=== PATIENT | female | born 1965 | race American Indian/Alaskan Native ===

== ENCOUNTER 2018-08-21 15:36 | Inpatient (IN) | payer OTHER ==
[2018-08-21] MEDS ORDERED: NACL 0.9% 1000 ML IV ONE (16:12)
[2018-08-21 16:35] LABS: Basophils # (Auto) 0.1 K/mm3 (0.0-0.1); Eosinophils % (Auto) 0.1 % (0.0-4.3); Monocytes # (Auto) 0.5 K/mm3 (0.0-0.8)
--- NOTE | 2018-08-21 16:47 | XRay Report ---
CHEST 1 VIEW 4:23 PM INDICATION / CLINICAL INFORMATION: Tachycardia and sepsis for one day. COMPARISON: None available. FINDINGS: SUPPORT DEVICES: None. HEART / MEDIASTINUM: The heart size is borderline with a left ventricular configuration. Pulmonary va sculature is normal. There is mild aortic tortuosity without aneurysm. LUNGS / PLEURA: No significant pulmonary or pleural abnormality. No pneumothorax. ADDITIONAL FINDINGS: There is a fracture of the mid right clavicle which is of uncertain age. IMPRESSION: 1. No acute pulmonary disease. 2. Fracture of the right mid clavicle is of uncertain age. Signer Name: Kenyon Oconnor MD Signed: 08/21/2018 4:43 PM Workstation Name: [id number]
[2018-08-21 16:59] LABS: Bacteria,Urine 1+ /HPF (Negative); Bilirubin,Urine NEG (Negative); Blood,Urine SM (Negative); Color,Urine Yellow (Yellow); Mucus,Urine FEW /HPF; Urobilinogen,Urine < 2.0 mg/dL (<2.0)
[2018-08-21] MEDS ORDERED: LEVAQUIN 750MG/150ML 750 MG/150 ML BAG IV SCH (17:00)
[2018-08-21 17:03] LABS: WBC,Urine > 182.0 /HPF (0.0-6.0)
[2018-08-21 17:04] LABS: Basophils % (Auto) 0.6 % (0.0-1.8); Hematocrit 30.9 % (30.3-42.9); Hemoglobin 10.4 gm/dl (10.1-14.3); Mean Corpuscular HGB Conc 34 % (30-34); Mean Corpuscular Volume 85 fl (79-97); Monocytes % (Auto) 3.4 % (0.0-7.3); Platelet Count 171 K/mm3 (140-440); Red Blood Count 3.62 M/mm3 (3.65-5.03); Red Cell Distribution Width 14.6 % (13.2-15.2)
[2018-08-21 17:15] LABS: Alanine Aminotransferase 72 units/L (7-56); Albumin 3.4 g/dL (3.9-5); BUN/Creatinine Ratio 13; Blood Urea Nitrogen 20 mg/dL (7-17); Calcium 9.4 mg/dL (8.4-10.2); Hemolysis Index 0
--- NOTE | 2018-08-21 18:23 | Emergency Department Report ---
ED General Adult HPI - General Chief complaint: Hyperglycemia Stated complaint: HYPERGLYCEMIA Time Seen by Provider: 08/21/18 16:12 Source: patient, EMS Mode of arrival: Stretcher Limitations: No Limitations - History of Present Illness Initial comments: Patient is a 53-year-old female past medical history of diabetes who presents with fever and tachycardia and feeling dizzy. Patient states that she checked her blood sugar and it was elevated. She is also has had a temporal 401.5. Patient takes metformin she's been having fever nothing makes it better and nothing makes it worse. Severity scale (0 -10): 0 - Related Data Home Medications Medication Instructions Recorded Confirmed Last Taken Aspirin [Aspirin BABY CHEW TAB] 81 mg PO QDAY 02/15/14 02/15/14 Unknown Pravastatin Sodium [Pravastatin] 20 mg PO DAILY 02/15/14 02/15/14 Unknown Previous Rx's Medication Instructions Recorded Last Taken Type metFORMIN [Glucophage] 850 mg PO BID #60 tablet 02/17/14 Unknown Rx Losartan [Cozaar] 50 mg PO QDAY #30 tablet 02/20/14 Unknown Rx Metoprolol [Lopressor TAB] 50 mg PO BID #60 tablet 02/20/14 Unknown Rx Allergies Allergy/AdvReac Type Severity Reaction Status Date / Time No Known Allergies Allergy Verified 02/12/14 18:07 ED Review of Systems ROS: Stated complaint: HYPERGLYCEMIA Other details as noted in HPI Constitutional: chills, fever Eyes: denies: eye pain, eye discharge, vision change ENT: denies: ear pain, throat pain Respiratory: denies: cough, shortness of breath, wheezing Cardiovascular: denies: chest pain, palpitations Endocrine: no symptoms reported Gastrointestinal: denies: abdominal pain, nausea, diarrhea Genitourinary: denies: urgency, dysuria, discharge Musculoskeletal: denies: back pain, joint swelling, arthralgia Skin: denies: rash, lesions Neurological: denies: headache, weakness, paresthesias Psychiatric: denies: anxiety, depression Hematological/Lymphatic: denies: easy bleeding, easy bruising ED Past Medical Hx - Past Medical History Hx Hypertension: Yes Hx Heart Attack/AMI: No Hx Congestive Heart Failure: No Hx Diabetes: Yes Hx Asthma: No Hx COPD: No Additional medical history: High cholesterol - Social History Smoking Status: Never Smoker Substance Use Type: None - Medications Home Medications: Home Medications Medication Instructions Recorded Confirmed Last Taken Type Aspirin [Aspirin BABY CHEW TAB] 81 mg PO QDAY 02/15/14 02/15/14 Unknown History Pravastatin Sodium [Pravastatin] 20 mg PO DAILY 02/15/14 02/15/14 Unknown History metFORMIN [Glucophage] 850 mg PO BID #60 tablet 02/17/14 Unknown Rx Losartan [Cozaar] 50 mg PO QDAY #30 tablet 02/20/14 Unknown Rx Metoprolol [Lopressor TAB] 50 mg PO BID #60 tablet 02/20/14 Unknown Rx ED Physical Exam - General Limitations: No Limitations General appearance: alert, in no apparent distress - Head Head exam: Present: atraumatic, normocephalic - Eye Eye exam: Present: normal appearance - ENT ENT exam: Present: mucous membranes moist - Neck Neck exam: Present: normal inspection - Respiratory Respiratory exam: Present: normal lung sounds bilaterally. Absent: respiratory distress - Cardiovascular Cardiovascular Exam: Present: normal rhythm, tachycardia. Absent: systolic murmur, diastolic murmur, rubs, gallop - GI/Abdominal GI/Abdominal exam: Present: soft, normal bowel sounds - Extremities Exam Extremities exam: Present: normal inspection - Back Exam Back exam: Present: normal inspection - Neurological Exam Neurological exam: Present: alert, oriented X3 - Psychiatric Psychiatric exam: Present: normal affect, normal mood - Skin Skin exam: Present: warm, dry, intact, normal color. Absent: rash ED Course Vital Signs 08/21/18 08/21/18 08/21/18 15:55 16:00 17:18 Temperature 101.5 F H 101.5 F H Pulse Rate 131 H 132 H Respiratory 20 16 20 Rate Blood Pressure 175/97 Blood Pressure 163/106 [Left] O2 Sat by Pulse 98 100 Oximetry ED Medical Decision Making - Lab Data Result diagrams: 08/21/18 16:24 08/21/18 15:50 Lab Results 08/21/18 08/21/18 08/21/18 Range/Units 15:50 15:50 15:50 WBC (4.5-11.0) K/mm3 RBC (3.65-5.03) M/mm3 Hgb (10.1-14.3) gm/dl Hct (30.3-42.9) % MCV (79-97) fl MCH (28-32) pg MCHC (30-34) % RDW (13.2-15.2) % Plt Count (140-440) K/mm3 Lymph % (Auto) (13.4-35.0) % [place] % (Auto) (0.0-7.3) % Eos % (Auto) (0.0-4.3) % Baso % (Auto) (0.0-1.8) % Lymph # (1.2-5.4) K/mm3 [place] # (0.0-0.8) K/mm3 Eos # (0.0-0.4) K/mm3 Baso # (0.0-0.1) K/mm3 Seg Neutrophils % (40.0-70.0) % Seg Neutrophils # (1.8-7.7) K/mm3 APTT 43.4 H (24.2-36.6) Sec. Sodium 130 L (137-145) mmol/L Potassium 4.2 (3.6-5.0) mmol/L Chloride 91.0 L (98-107) mmol/L Carbon Dioxide 22 (22-30) mmol/L Anion Gap 21 mmol/L BUN 20 H (7-17) mg/dL Creatinine 1.6 H (0.7-1.2) mg/dL Estimated GFR 41 ml/min BUN/Creatinine Ratio 13 % Glucose 464 H (65-100) mg/dL POC Glucose (70-105) Lactic Acid (0.7-2.0) mmol/L Calcium 9.4 (8.4-10.2) mg/dL Total Bilirubin 0.60 (0.1-1.2) mg/dL AST 64 H (5-40) units/L ALT 72 H (7-56) units/L Alkaline Phosphatase 389 H (35-129) units/L Troponin T < 0.010 (0.00-0.029) ng/mL Total Protein 8.7 H (6.3-8.2) g/dL Albumin 3.4 L (3.9-5) g/dL Albumin/Globulin Ratio 0.6 % Urine Color Yellow (Yellow) Urine Turbidity Slightly-cloudy (Clear) Urine pH 6.0 (5.0-7.0) Ur Specific [place] 1.009 (1.003-1.030) Urine Protein 100 mg/dl (Negative) mg/dL Urine Glucose (UA) >=500 (Negative) mg/dL Urine Ketones Neg (Negative) mg/dL Urine Blood Sm (Negative) Urine Nitrite Neg (Negative) Urine Bilirubin Neg (Negative) Urine Urobilinogen < 2.0 (<2.0) mg/dL Ur Leukocyte Esterase Lg (Negative) Urine WBC (Auto) > 182.0 H (0.0-6.0) /HPF Urine RBC (Auto) 3.0 (0.0-6.0) /HPF U Epithel Cells (Auto) 2.0 (0-13.0) /HPF Urine Bacteria (Auto) 1+ (Negative) /HPF Urine Mucus Few /HPF Blood Type Antibody Screen 08/21/18 08/21/18 08/21/18 Range/Units 15:50 15:52 16:20 WBC (4.5-11.0) K/mm3 RBC (3.65-5.03) M/mm3 Hgb (10.1-14.3) gm/dl Hct (30.3-42.9) % MCV (79-97) fl MCH (28-32) pg MCHC (30-34) % RDW (13.2-15.2) % Plt Count (140-440) K/mm3 Lymph % (Auto) (13.4-35.0) % [place] % (Auto) (0.0-7.3) % Eos % (Auto) (0.0-4.3) % Baso % (Auto) (0.0-1.8) % Lymph # (1.2-5.4) K/mm3 [place] # (0.0-0.8) K/mm3 Eos # (0.0-0.4) K/mm3 Baso # (0.0-0.1) K/mm3 Seg Neutrophils % (40.0-70.0) % Seg Neutrophils # (1.8-7.7) K/mm3 APTT (24.2-36.6) Sec. Sodium (137-145) mmol/L Potassium (3.6-5.0) mmol/L Chloride (98-107) mmol/L Carbon Dioxide (22-30) mmol/L Anion Gap mmol/L BUN (7-17) mg/dL Creatinine (0.7-1.2) mg/dL Estimated GFR ml/min BUN/Creatinine Ratio % Glucose (65-100) mg/dL POC Glucose 401 H (70-105) Lactic Acid 2.30 H* (0.7-2.0) mmol/L Calcium (8.4-10.2) mg/dL Total Bilirubin (0.1-1.2) mg/dL AST (5-40) units/L ALT (7-56) units/L Alkaline Phosphatase (35-129) units/L Troponin T (0.00-0.029) ng/mL Total Protein (6.3-8.2) g/dL Albumin (3.9-5) g/dL Albumin/Globulin Ratio % Urine Color (Yellow) Urine Turbidity (Clear) Urine pH (5.0-7.0) Ur Specific [place] (1.003-1.030) Urine Protein (Negative) mg/dL Urine Glucose (UA) (Negative) mg/dL Urine Ketones (Negative) mg/dL Urine Blood (Negative) Urine Nitrite (Negative) Urine Bilirubin (Negative) Urine Urobilinogen (<2.0) mg/dL Ur Leukocyte Esterase (Negative) Urine WBC (Auto) (0.0-6.0) /HPF Urine RBC (Auto) (0.0-6.0) /HPF U Epithel Cells (Auto) (0-13.0) /HPF Urine Bacteria (Auto) (Negative) /HPF Urine Mucus /HPF Blood Type O POSITIVE Antibody Screen Negative 08/21/18 Range/Units 16:24 WBC 14.3 H (4.5-11.0) K/mm3 RBC 3.62 L (3.65-5.03) M/mm3 Hgb 10.4 (10.1-14.3) gm/dl Hct 30.9 (30.3-42.9) % MCV 85 (79-97) fl MCH 29 (28-32) pg MCHC 34 (30-34) % RDW 14.6 (13.2-15.2) % Plt Count 171 (140-440) K/mm3 Lymph % (Auto) 7.0 L (13.4-35.0) % [place] % (Auto) 3.4 (0.0-7.3) % Eos % (Auto) 0.1 (0.0-4.3) % Baso % (Auto) 0.6 (0.0-1.8) % Lymph # 1.0 L (1.2-5.4) K/mm3 [place] # 0.5 (0.0-0.8) K/mm3 Eos # 0.0 (0.0-0.4) K/mm3 Baso # 0.1 (0.0-0.1) K/mm3 Seg Neutrophils % 88.9 H (40.0-70.0) % Seg Neutrophils # 12.7 H (1.8-7.7) K/mm3 APTT (24.2-36.6) Sec. Sodium (137-145) mmol/L Potassium (3.6-5.0) mmol/L Chloride (98-107) mmol/L Carbon Dioxide (22-30) mmol/L Anion Gap mmol/L BUN (7-17) mg/dL Creatinine (0.7-1.2) mg/dL Estimated GFR ml/min BUN/Creatinine Ratio % Glucose (65-100) mg/dL POC Glucose (70-105) Lactic Acid (0.7-2.0) mmol/L Calcium (8.4-10.2) mg/dL Total Bilirubin (0.1-1.2) mg/dL AST (5-40) units/L ALT (7-56) units/L Alkaline Phosphatase (35-129) units/L Troponin T (0.00-0.029) ng/mL Total Protein (6.3-8.2) g/dL Albumin (3.9-5) g/dL Albumin/Globulin Ratio % Urine Color (Yellow) Urine Turbidity (Clear) Urine pH (5.0-7.0) Ur Specific [place] (1.003-1.030) Urine Protein (Negative) mg/dL Urine Glucose (UA) (Negative) mg/dL Urine Ketones (Negative) mg/dL Urine Blood (Negative) Urine Nitrite (Negative) Urine Bilirubin (Negative) Urine Urobilinogen (<2.0) mg/dL Ur Leukocyte Esterase (Negative) Urine WBC (Auto) (0.0-6.0) /HPF Urine RBC (Auto) (0.0-6.0) /HPF U Epithel Cells (Auto) (0-13.0) /HPF Urine Bacteria (Auto) (Negative) /HPF Urine Mucus /HPF Blood Type Antibody Screen - EKG Data -: EKG Interpreted by Me - EKG Data 07/06/19 18:45 EKG shows sinus tachycardia no ST segment elevation or T-wave inversion impression sinus tachycardia - Radiology Data Radiology results: report reviewed, image reviewed Chest x-ray: Shows no acute cardiopulmonary disease age indeterminate right clavicle fracture - Medical Decision Making Medical diagnosis: Sepsis secondary to urinary tract infection Differential medical diagnosis: Pneumonia, hyperglycemia, diabetic ketoacidosis I'll give patient 30 mL per kilo bolus I will give IV antibiotics urinalysis blood cultures E [place] and I will admit the patient to the hospital service due to potentially life-threatening condition. Discussed follow patient patient agrees to plan. Critical Care Time: Yes Critical care time in (mins) excluding proc time.: 60 Critical care attestation.: If time is entered above; I have spent that time in minutes in the direct care of this critically ill patient, excluding procedure time. Critical care time spent at patient's bedside 30 minutes Critical care time spent reviewing medical record 20 minutes Critical care time spent with strategic sourcing consultant 10 minutes ED Disposition Clinical Impression: Sepsis Qualifiers: Sepsis type: sepsis due to unspecified organism Qualified Code(s): A41.9 - Sepsis, unspecified organism UTI (urinary tract infection) Qualifiers: Urinary tract infection type: acute cystitis Hematuria presence: without hematuria Qualified Code(s): N30.00 - Acute cystitis without hematuria Disposition: OP ADMIT IP TO THIS HOSP Is pt being admited?: Yes Does the pt Need Aspirin: No Condition: Stable Referrals: PRIMARY CARE, [Primary Care Provider] - 3-5 Days
[2018-08-21] MEDS ORDERED: TORADOL IV ONE (18:27)
[2018-08-21] MEDS ORDERED: TORADOL ONE (19:37)
[2018-08-21] MEDS ORDERED: REGLAN IV PRN (20:13)
[2018-08-21] MEDS ORDERED: PERCOCET 5/325 PO PRN (20:13)
[2018-08-21] MEDS ORDERED: SODIUM CHLORIDE FLUSH SYRINGE 10 ML IV PRN (20:13)
[2018-08-21] MEDS ORDERED: DILAUDID IV PRN (20:13)
--- NOTE | 2018-08-21 20:13 | History and Physical Report ---
History of Present Illness Date of examination: 08/21/18 Date of admission: 08/21/18 18:24 Chief complaint: Fever and palpitations for one day Dizziness for 1 day History of present illness: 53-year-old female with past medical history of diabetes and hypertension pr esents with fever and tachycardia and feeling dizzy. Patient also comes in for feeling weak. Patient had a fever of 101.5 at home. Patient also has dysuria and suprapubic discomfort for the past 2 days. Fever and chills present. Patient's blood sugars were high in the range of 300-400 when she checked at home. No cough or congestion. No syncope. No recent travel. No shortness of breath. Past Medical History Hypertension: Yes Diabetes: Yes High cholesterol surgical history none. Social History Smoking Status: Never Smoker Substance Use Type: None Family history Htn - Medications Home Medications: Home Medications Medication Instructions Recorded Confirmed Last Taken Type Aspirin [Aspirin BABY CHEW TAB] 81 mg PO QDAY 02/15/14 02/15/14 Unknown History Pravastatin Sodium [Pravastatin] 20 mg PO DAILY 02/15/14 02/15/14 Unknown History metFORMIN [Glucophage] 850 mg PO BID #60 tablet 02/17/14 Unknown Rx Losartan [Cozaar] 50 mg PO QDAY #30 tablet 02/20/14 Unknown Rx Metoprolol [Lopressor TAB] 50 mg PO BID #60 tablet 02/20/14 Unknown Rx Review of Systems ROS: Stated complaint: HYPERGLYCEMIA Other details as noted in HPI Constitutional: chills, fever Eyes: denies: eye pain, eye discharge, vision change ENT: denies: ear pain, throat pain Respiratory: denies: cough, shortness of breath, wheezing Cardiovascular: denies: chest pain, palpitations Endocrine: no symptoms reported Gastrointestinal: denies: abdominal pain, nausea, diarrhea Genitourinary: Has urgency and dysuria, no discharge Musculoskeletal: denies: back pain, joint swelling, arthralgia Skin: denies: rash, lesions Neurological: denies: headache, weakness, paresthesias Psychiatric: denies: anxiety, depression Hematological/Lymphatic: denies: easy bleeding, easy bruising 14 point review of systems done and otherwise negative. Medications and Allergies Allergies Allergy/AdvReac Type Severity Reaction Status Date / Time No Known Allergies Allergy Verified 02/12/14 18:07 Home Medications Medication Instructions Recorded Confirmed Last Taken Type Aspirin [Aspirin BABY CHEW TAB] 81 mg PO QDAY 02/15/14 02/15/14 Unknown History Pravastatin Sodium [Pravastatin] 20 mg PO DAILY 02/15/14 02/15/14 Unknown History metFORMIN [Glucophage] 850 mg PO BID #60 tablet 02/17/14 Unknown Rx Losartan [Cozaar] 50 mg PO QDAY #30 tablet 02/20/14 Unknown Rx Metoprolol [Lopressor TAB] 50 mg PO BID #60 tablet 02/20/14 Unknown Rx Active Meds: Active Medications Aspirin (Baby Aspirin) 81 mg PO QDAY MARIA ESTHER Enoxaparin Sodium (Lovenox) 40 mg SUB-Q QDAY MARIA ESTHER Hydralazine HCl (Apresoline) 10 mg IV Q3H PRN PRN Reason: Blood Pressure Levofloxacin/Dextrose (Levaquin 750mg/150ml) 750 mg in 150 mls @ 100 mls/hr IV Q48H MARIA ESTHER; Protocol Losartan Potassium (Cozaar) 100 mg PO QDAY MARIA ESTHER Metoprolol Tartrate (Lopressor) 50 mg PO BID [facility] Miscellaneous Medication (Pravastatin Sodium [Pravastatin]) 20 mg PO DAILY [facility] Exam - Constitutional Vitals: Temp Pulse Resp BP Pulse Ox 100.3 F H 119 H 25 H 176/94 96 08/21/18 19:21 08/21/18 19:21 08/21/18 19:50 08/21/18 19:50 08/21/18 19:50 General appearance: Present: no acute distress, mild distress, well-nourished - EENT Eyes: Present: PERRL ENT: hearing intact, clear oral mucosa - Neck Neck: Present: supple, normal ROM - Respiratory Respiratory effort: normal Respiratory: bilateral: CTA - Cardiovascular Heart rate: 100 Rhythm: regular Heart Sounds: Present: S1 & S2. Absent: rub, click - Extremities Extremities: no ischemia, pulses symmetrical, No edema Peripheral Pulses: within normal limits - Abdominal General gastrointestinal: Present: soft, non-tender, non-distended, normal bowel sounds Localized gastrointestinal: tender: suprapubic Female genitourinary: Present: normal - Rectal Rectal Exam: deferred - Integumentary Integumentary: Present: clear, warm, dry - Musculoskeletal Musculoskeletal: gait normal, strength equal bilaterally - Psychiatric Psychiatric: appropriate mood/affect, intact judgment & insight - Neurologic Neurologic: CNII-XII intact, moves all extremities - Allied Health Allied health notes reviewed: nursing, case management Results - Labs CBC & Chem 7: 08/21/18 16:24 08/21/18 15:50 Labs: Laboratory Last Values WBC 14.3 K/mm3 (4.5-11.0) H 08/21/18 16:24 RBC 3.62 M/mm3 (3.65-5.03) L 08/21/18 16:24 Hgb 10.4 gm/dl (10.1-14.3) 08/21/18 16:24 Hct 30.9 % (30.3-42.9) 08/21/18 16:24 MCV 85 fl (79-97) 08/21/18 16:24 MCH 29 pg (28-32) 08/21/18 16:24 MCHC 34 % (30-34) 08/21/18 16:24 RDW 14.6 % (13.2-15.2) 08/21/18 16:24 Plt Count 171 K/mm3 (140-440) 08/21/18 16:24 Lymph % (Auto) 7.0 % (13.4-35.0) L 08/21/18 16:24 [place] % (Auto) 3.4 % (0.0-7.3) 08/21/18 16:24 Eos % (Auto) 0.1 % (0.0-4.3) 08/21/18 16:24 Baso % (Auto) 0.6 % (0.0-1.8) 08/21/18 16:24 Lymph # 1.0 K/mm3 (1.2-5.4) L 08/21/18 16:24 [place] # 0.5 K/mm3 (0.0-0.8) 08/21/18 16:24 Eos # 0.0 K/mm3 (0.0-0.4) 08/21/18 16:24 Baso # 0.1 K/mm3 (0.0-0.1) 08/21/18 16:24 Seg Neutrophils % 88.9 % (40.0-70.0) H 08/21/18 16:24 Seg Neutrophils # 12.7 K/mm3 (1.8-7.7) H 08/21/18 16:24 APTT 43.4 Sec. (24.2-36.6) H 08/21/18 15:50 Sodium 130 mmol/L (137-145) L 08/21/18 15:50 Potassium 4.2 mmol/L (3.6-5.0) 08/21/18 15:50 Chloride 91.0 mmol/L (98-107) L 08/21/18 15:50 Carbon Dioxide 22 mmol/L (22-30) 08/21/18 15:50 21 mmol/L 08/21/18 15:50 BUN 20 mg/dL (7-17) H 08/21/18 15:50 1.6 mg/dL (0.7-1.2) H 08/21/18 15:50 Estimated GFR 41 ml/min 08/21/18 15:50 13 % 08/21/18 15:50 Glucose 464 mg/dL (65-100) H 08/21/18 15:50 POC Glucose 387 (70-105) H 08/21/18 18:53 Lactic Acid 2.30 mmol/L (0.7-2.0) H* 08/21/18 15:50 Calcium 9.4 mg/dL (8.4-10.2) 08/21/18 15:50 0.60 mg/dL (0.1-1.2) 08/21/18 15:50 AST 64 units/L (5-40) H 08/21/18 15:50 ALT 72 units/L (7-56) H 08/21/18 15:50 389 units/L (35-129) H 08/21/18 15:50 < 0.010 ng/mL (0.00-0.029) 08/21/18 15:50 8.7 g/dL (6.3-8.2) H 08/21/18 15:50 3.4 g/dL (3.9-5) L 08/21/18 15:50 0.6 % 08/21/18 15:50 Yellow (Yellow) 08/21/18 15:50 Slightly-cloudy (Clear) 08/21/18 15:50 6.0 (5.0-7.0) 08/21/18 15:50 Ur Specific [place] 1.009 (1.003-1.030) 08/21/18 15:50 100 mg/dl mg/dL (Negative) 08/21/18 15:50 >=500 mg/dL (Negative) 08/21/18 15:50 Neg mg/dL (Negative) 08/21/18 15:50 Sm (Negative) 08/21/18 15:50 Neg (Negative) 08/21/18 15:50 Neg (Negative) 08/21/18 15:50 < 2.0 mg/dL (<2.0) 08/21/18 15:50 Ur Leukocyte Esterase Lg (Negative) 08/21/18 15:50 > 182.0 /HPF (0.0-6.0) H 08/21/18 15:50 3.0 /HPF (0.0-6.0) 08/21/18 15:50 U Epithel Cells (Auto) 2.0 /HPF (0-13.0) 08/21/18 15:50 1+ /HPF (Negative) 08/21/18 15:50 Few /HPF 08/21/18 15:50 Blood Type O POSITIVE 08/21/18 16:20 Antibody Screen Negative 08/21/18 16:20 Short CBC 08/21/18 Range/Units 16:24 WBC 14.3 H (4.5-11.0) K/mm3 Hgb 10.4 (10.1-14.3) gm/dl Hct 30.9 (30.3-42.9) % Plt Count 171 (140-440) K/mm3 BMP 08/21/18 15:50 Sodium 130 L Potassium 4.2 Chloride 91.0 L Carbon Dioxide 22 BUN 20 H Creatinine 1.6 H Glucose 464 H Calcium 9.4 Cardiac Enzymes 08/21/18 Range/Units 15:50 Troponin T < 0.010 (0.00-0.029) ng/mL Liver Function 08/21/18 Range/Units 15:50 Total Bilirubin 0.60 (0.1-1.2) mg/dL AST 64 H (5-40) units/L ALT 72 H (7-56) units/L Alkaline Phosphatase 389 H (35-129) units/L Albumin 3.4 L (3.9-5) g/dL Urine 08/21/18 Range/Units 15:50 Urine Color Yellow (Yellow) Urine pH 6.0 (5.0-7.0) Ur Specific [place] 1.009 (1.003-1.030) Urine Protein 100 mg/dl (Negative) mg/dL Urine Glucose (UA) >=500 (Negative) mg/dL - Imaging and Cardiology EKG: report reviewed (sinus tachycardia heart rate of 1 30/m no acute ST-T wave changes) Imaging and Cardiology: Chest x-ray IMPRESSION: 1. No acute pulmonary disease. 2. Fracture of the right mid clavicle is of uncertain age. Assessment and Plan Advance Directives: Yes (full code) VTE prophylaxis?: Chemical Plan of care discussed with patient/family: Yes - Patient Problems (1) SIRS (systemic inflammatory response syndrome) Current Visit: Yes Status: Acute Plan to address problem: Clinical picture consistent with SIRS Lactic acid elevated White count elevated No hypertension IV fluids and IV ceftriaxone for now Check blood cultures and urine cultures (2) Acute kidney injury Current Visit: Yes Status: Acute Plan to address problem: Secondary to vasomotor nephropathy IV normal saline for now Check BMP in a.m. (3) UTI (urinary tract infection) Current Visit: Yes Status: Acute Qualifiers: Urinary tract infection type: acute cystitis Hematuria presence: without hematuria Qualified Code(s): N30.00 - Acute cystitis without hematuria Plan to address problem: IV Rocephin pending urine cultures (4) DVT prophylaxis Current Visit: No Status: Acute Plan to address problem: Lovenox and GI prophylaxis (5) Hyponatremia Current Visit: No Status: Acute Plan to address problem: IV normal saline for now (6) Uncontrolled hypertension Current Visit: No Status: Acute Plan to address problem: Blood pressure medications adjusted Losartan increased to 100 mg daily (7) Type 2 diabetes mellitus Current Visit: Yes Status: Chronic Qualifiers: Diabetes mellitus technician terminal and repeater insulin use: without technician terminal and repeater use Plan to address problem: Uncontrolled Check hemoglobin A1c Patient initiated on Novolin 70/30 20 units twice a day Patient to be discharged on insulin Patient only on metformin till now Will hold the metformin because of elevated creatinine Insulin coverage before meals and at bedtime with moderate dose sliding scale (8) Hyperlipidemia Current Visit: Yes Status: Chronic Qualifiers: Hyperlipidemia type: mixed hyperlipidemia Qualified Code(s): E78.2 - Mixed hyperlipidemia Plan to address problem: Continue statins (9) DVT prophylaxis Current Visit: Yes Status: Acute Plan to address problem: On Lovenox and GI prophylaxis
[2018-08-21] MEDS: COZAAR PO SCH (21:47)
[2018-08-21] MEDS: NACL 0.9% 1000 ML 1,000 ML IV SCH (21:47)
[2018-08-21] MEDS: BABY ASPIRIN PO SCH (21:48)
[2018-08-21] MEDS: LOPRESSOR PO SCH (21:48)
[2018-08-21] MEDS: PEPCID IV SCH (21:48)
[2018-08-21] MEDS: PRAVACHOL PO SCH (21:48)
[2018-08-21] MEDS: HumaLOG SUB-Q SCH (21:49)
[2018-08-21] MEDS: SODIUM CHLORIDE FLUSH SYRINGE 10 ML IV SCH (21:50)
[2018-08-22] MEDS: ROCEPHIN/NS 2 GM/100 ML 2 GM/100 ML BAG IV SCH ×2 (01:08→10:21)
[2018-08-22] MEDS: LOVENOX SUB-Q SCH ×2 (01:09→10:24)
[2018-08-22] MEDS: APRESOLINE IV PRN ×3 (05:16→17:47)
[2018-08-22] MEDS ORDERED: CARDIZEM IV ONE (06:10)
[2018-08-22 06:35] LABS: Hematocrit 32.4 % (30.3-42.9); Hemoglobin 10.6 gm/dl (10.1-14.3); Mean Corpuscular HGB Conc 33 % (30-34); Mean Corpuscular Volume 87 fl (79-97); Platelet Count 183 K/mm3 (140-440); Red Blood Count 3.71 M/mm3 (3.65-5.03); Red Cell Distribution Width 14.9 % (13.2-15.2)
[2018-08-22 06:52] LABS: Albumin 2.6 g/dL (3.9-5); Calcium 8.8 mg/dL (8.4-10.2)
[2018-08-22] MEDS: HumaLOG SUB-Q SCH ×4 (08:33→22:15)
[2018-08-22 08:34] LABS: Band Neutrophils # (Manual) 1.5 K/mm3; Basophils % (Manual) 0 % (0.0-1.8); Eosinophils % (Manual) 0 % (0.0-4.3); Monocytes % (Manual) 16.5 % (0.0-7.3); Total Cells Counted 200
[2018-08-22 08:35] LABS: Anisocytosis 1+
[2018-08-22 08:36] LABS: Hypochromasia 1+; Platelet Estimate Consistent w Auto
[2018-08-22] MEDS: PRAVACHOL PO SCH (10:23)
[2018-08-22] MEDS: COZAAR PO SCH (10:23)
[2018-08-22] MEDS: LOPRESSOR PO SCH (10:24)
[2018-08-22] MEDS: PEPCID IV SCH ×2 (10:24→22:16)
[2018-08-22] MEDS: BABY ASPIRIN PO SCH (10:24)
[2018-08-22] MEDS: NACL 0.9% 1000 ML 1,000 ML IV SCH (10:26)
[2018-08-22] MEDS: SODIUM CHLORIDE FLUSH SYRINGE 10 ML IV SCH ×2 (10:26→22:16)
--- NOTE | 2018-08-22 13:00 | Progress Note ---
Assessment and Plan Assessment and plan: 53-year-old woman with history of hypertension and diabetes Who presents to the hospital with fever and dysuria and suprapubic pain. Sepsis/UTI/gram-negative bacteremia Continue antibiotics, ID consult Type 2 diabetes with persistent hyperglycemia, A1c 13.5 Optimize insulins, patient is self-pay, she was supposed to be on 70/30 insulin but has not been taking it Hypertension with hypertensive urgency Optimize blood pressure medications Nonadherence to medications Patient has been counseled on preventative health 17 minutes DVT prophylaxis Lovenox History Interval history: Review of systems Constitutional: She admits to having low-grade fever CVS: No chest pain, no orthopnea, no dyspnea on exertion, no pedal edema GI: Suprapubic pain and dysuria is improved, no diarrhea, no vomiting, no constipation Respiratory: no wheezing, no coughing Hospitalist Physical - Physical exam Narrative exam: General.: Appears well, no distress, nontoxic HEENT: Moist mucous membranes, extraocular muscles intact, no lymphadenopathy Neck: supple Cardiac: S1-S2 heard Lungs: clear to auscultation bilaterally Abdomen: soft , nontender, nondistended, bowel sounds positive Extremities: no edema clubbing or cyanosis Skin: no rash or lesions Neurologic: no gross focal deficits Psych: calm, and cooperative - Constitutional Vitals: Temp Pulse Resp BP Pulse Ox 98.5 F 106 H 28 H 164/90 100 08/22/18 04:58 08/22/18 07:47 08/22/18 04:58 08/22/18 10:24 08/22/18 07:47 General appearance: Present: no acute distress, mild distress, well-nourished Results - Labs CBC & Chem 7: 08/22/18 05:53 08/22/18 05:53 Labs: Laboratory Last Values WBC 26.9 K/mm3 (4.5-11.0) H 08/22/18 05:53 RBC 3.71 M/mm3 (3.65-5.03) 08/22/18 05:53 Hgb 10.6 gm/dl (10.1-14.3) 08/22/18 05:53 Hct 32.4 % (30.3-42.9) 08/22/18 05:53 MCV 87 fl (79-97) 08/22/18 05:53 MCH 28 pg (28-32) 08/22/18 05:53 MCHC 33 % (30-34) 08/22/18 05:53 RDW 14.9 % (13.2-15.2) 08/22/18 05:53 Plt Count 183 K/mm3 (140-440) 08/22/18 05:53 Lymph % (Auto) 7.0 % (13.4-35.0) L 08/21/18 16:24 Kern % (Auto) 3.4 % (0.0-7.3) 08/21/18 16:24 Eos % (Auto) 0.1 % (0.0-4.3) 08/21/18 16:24 Baso % (Auto) 0.6 % (0.0-1.8) 08/21/18 16:24 Lymph # 1.0 K/mm3 (1.2-5.4) L 08/21/18 16:24 Kern # 0.5 K/mm3 (0.0-0.8) 08/21/18 16:24 Eos # 0.0 K/mm3 (0.0-0.4) 08/21/18 16:24 Baso # 0.1 K/mm3 (0.0-0.1) 08/21/18 16:24 Add Manual Diff Complete 08/22/18 05:53 Total Counted 200 08/22/18 05:53 Seg Neutrophils % 88.9 % (40.0-70.0) H 08/21/18 16:24 Seg Neuts % (Manual) 60.0 % (40.0-70.0) 08/22/18 05:53 5.5 % 08/22/18 05:53 16.0 % (13.4-35.0) 08/22/18 05:53 Reactive Lymphs % (Man) 0 % 08/22/18 05:53 16.5 % (0.0-7.3) H 08/22/18 05:53 0 % (0.0-4.3) 08/22/18 05:53 0 % (0.0-1.8) 08/22/18 05:53 2.0 % 08/22/18 05:53 0 % 08/22/18 05:53 0 % 08/22/18 05:53 0 % 08/22/18 05:53 Nucleated RBC % Not Reportable 08/22/18 05:53 Seg Neutrophils # 12.7 K/mm3 (1.8-7.7) H 08/21/18 16:24 Seg Neutrophils # Man 16.1 K/mm3 (1.8-7.7) H 08/22/18 05:53 Band Neutrophils # 1.5 K/mm3 08/22/18 05:53 4.3 K/mm3 (1.2-5.4) 08/22/18 05:53 Abs React Lymphs (Man) 0.0 K/mm3 08/22/18 05:53 4.4 K/mm3 (0.0-0.8) H 08/22/18 05:53 0.0 K/mm3 (0.0-0.4) 08/22/18 05:53 0.0 K/mm3 (0.0-0.1) 08/22/18 05:53 0.5 K/mm3 08/22/18 05:53 0.0 K/mm3 08/22/18 05:53 0.0 K/mm3 08/22/18 05:53 Blast Cells # 0.0 K/mm3 08/22/18 05:53 WBC Morphology Not Reportable 08/22/18 05:53 Hypersegmented Neuts Not Reportable 08/22/18 05:53 Hyposegmented Neuts Not Reportable 08/22/18 05:53 Hypogranular Neuts Not Reportable 08/22/18 05:53 Not Reportable 08/22/18 05:53 Not Reportable 08/22/18 05:53 Not Reportable 08/22/18 05:53 Not Reportable 08/22/18 05:53 Not Reportable 08/22/18 05:53 Not Reportable 08/22/18 05:53 Consistent w auto 08/22/18 05:53 Not Reportable 08/22/18 05:53 Plt Clumps, EDTA Not Reportable 08/22/18 05:53 Not Reportable 08/22/18 05:53 Not Reportable 08/22/18 05:53 Not Reportable 08/22/18 05:53 Plt Morphology Comment Not Reportable 08/22/18 05:53 RBC Morphology Not Reportable 08/22/18 05:53 Dimorphic RBCs Not Reportable 08/22/18 05:53 Not Reportable 08/22/18 05:53 1+ 08/22/18 05:53 Not Reportable 08/22/18 05:53 1+ 08/22/18 05:53 Not Reportable 08/22/18 05:53 Not Reportable 08/22/18 05:53 Not Reportable 08/22/18 05:53 Not Reportable 08/22/18 05:53 Not Reportable 08/22/18 05:53 Not Reportable 08/22/18 05:53 Not Reportable 08/22/18 05:53 Not Reportable 08/22/18 05:53 Not Reportable 08/22/18 05:53 Not Reportable 08/22/18 05:53 Not Reportable 08/22/18 05:53 Not Reportable 08/22/18 05:53 Not Reportable 08/22/18 05:53 Not Reportable 08/22/18 05:53 Not Reportable 08/22/18 05:53 Acanthocytes (Spur) Not Reportable 08/22/18 05:53 Rouleaux Not Reportable 08/22/18 05:53 Not Reportable 08/22/18 05:53 Not Reportable 08/22/18 05:53 Not Reportable 08/22/18 05:53 Not Reportable 08/22/18 05:53 Hem Pathologist Commnt No 08/22/18 05:53 APTT 43.4 Sec. (24.2-36.6) H 08/21/18 15:50 Sodium 136 mmol/L (137-145) L 08/22/18 05:53 Potassium 3.9 mmol/L (3.6-5.0) 08/22/18 05:53 Chloride 99.4 mmol/L (98-107) 08/22/18 05:53 Carbon Dioxide 19 mmol/L (22-30) L 08/22/18 05:53 22 mmol/L 08/22/18 05:53 BUN 18 mg/dL (7-17) H 08/22/18 05:53 1.6 mg/dL (0.7-1.2) H 08/22/18 05:53 Estimated GFR 41 ml/min 08/22/18 05:53 11 % 08/22/18 05:53 Glucose 326 mg/dL (65-100) H 08/22/18 05:53 POC Glucose 217 (70-105) H 08/22/18 11:26 13.0 % (4-6) H 08/21/18 20:26 Lactic Acid 1.80 mmol/L (0.7-2.0) 08/21/18 20:26 Calcium 8.8 mg/dL (8.4-10.2) 08/22/18 05:53 0.40 mg/dL (0.1-1.2) 08/22/18 05:53 AST 48 units/L (5-40) H 08/22/18 05:53 ALT 58 units/L (7-56) H 08/22/18 05:53 354 units/L (35-129) H 08/22/18 05:53 < 0.010 ng/mL (0.00-0.029) 08/21/18 15:50 8.0 g/dL (6.3-8.2) 08/22/18 05:53 2.6 g/dL (3.9-5) L 08/22/18 05:53 0.5 % 08/22/18 05:53 Yellow (Yellow) 08/21/18 15:50 Slightly-cloudy (Clear) 08/21/18 15:50 6.0 (5.0-7.0) 08/21/18 15:50 Ur Specific Mcgee 1.009 (1.003-1.030) 08/21/18 15:50 100 mg/dl mg/dL (Negative) 08/21/18 15:50 >=500 mg/dL (Negative) 08/21/18 15:50 Neg mg/dL (Negative) 08/21/18 15:50 Sm (Negative) 08/21/18 15:50 Neg (Negative) 08/21/18 15:50 Neg (Negative) 08/21/18 15:50 < 2.0 mg/dL (<2.0) 08/21/18 15:50 Ur Leukocyte Esterase Lg (Negative) 08/21/18 15:50 > 182.0 /HPF (0.0-6.0) H 08/21/18 15:50 3.0 /HPF (0.0-6.0) 08/21/18 15:50 U Epithel Cells (Auto) 2.0 /HPF (0-13.0) 08/21/18 15:50 1+ /HPF (Negative) 08/21/18 15:50 Few /HPF 08/21/18 15:50 Blood Type O POSITIVE 08/21/18 16:20 Antibody Screen Negative 08/21/18 16:20 Active Medications - Current Medications Current Medications: Generic Name Dose Route Start Last Admin Trade Name Freq PRN Reason Stop Dose Admin Acetaminophen 650 mg 08/21/18 20:13 Tylenol PO Q4H PRN Pain MILD(1-3)/Fever >100.5/CINTRON Aspirin 81 mg 08/21/18 20:00 08/22/18 10:24 Baby Aspirin PO 81 mg QDAY MARIA ESTHER Administration Enoxaparin Sodium 40 mg 08/21/18 19:00 08/22/18 10:24 Lovenox SUB-Q 40 mg QDAY MARIA ESTHER Administration Famotidine 20 mg 08/21/18 22:00 08/22/18 10:24 Pepcid IV 20 mg BID MARIA ESTHER Administration Hydralazine HCl 10 mg 08/21/18 19:57 08/22/18 08:30 Apresoline IV 10 mg Q3H PRN Administration Blood Pressure Hydromorphone HCl 0.5 mg 08/21/18 20:13 Dilaudid IV Q3H PRN Pain , Severe (7-10) Sodium Chloride 1,000 mls @ 100 mls/hr 08/21/18 21:00 08/22/18 10:26 Nacl 0.9% 1000 Ml IV 100 mls/hr DIRECT MARIA ESTHER Administration Ceftriaxone Sodium 2 gm in 100 mls @ 200 mls/hr 08/21/18 21:00 08/22/18 10:21 Rocephin/Ns 2 Gm/100 Ml IV 200 mls/hr Q24HR MARIA ESTHER Administration Protocol Insulin Human Isoph/Insulin Regular 25 unit 08/22/18 17:00 Humulin 70/30 SUB-Q BIDDIAB MARIA ESTHER Insulin Human Lispro 0 unit 08/21/18 22:00 08/22/18 08:33 Humalog SUB-Q 6 unit ACHS MARIA ESTHER Administration Protocol Losartan Potassium 100 mg 08/21/18 20:00 08/22/18 10:23 Cozaar PO 100 mg QDAY MARIA ESTHER Administration Metoclopramide HCl 10 mg 08/21/18 20:13 Reglan IV Q6H PRN Nausea And Vomiting Metoprolol Tartrate 50 mg 08/21/18 22:00 08/22/18 10:24 Lopressor PO 50 mg BID MARIA ESTHER Administration Ondansetron HCl 4 mg 08/21/18 20:13 Zofran IV Q8H PRN Nausea And Vomiting Oxycodone/Acetaminophen 1 tab 08/21/18 20:13 Percocet 5/325 PO Q6H PRN Pain, Moderate (4-6) Pravastatin Sodium 20 mg 08/21/18 22:00 08/22/18 10:23 Pravachol PO 20 mg QDAY MARIA ESTHER Administration Sodium Chloride 10 ml 08/21/18 22:00 08/22/18 10:26 Sodium Chloride Flush Syringe 10 Ml IV 10 ml BID MARIA ESTHER Administration Sodium Chloride 10 ml 08/21/18 20:13 Sodium Chloride Flush Syringe 10 Ml IV PRN PRN LINE FLUSH
--- NOTE | 2018-08-22 13:19 | Consultation ---
History of Present Illness - Reason for Consult Consult date: 08/22/18 Bacteremia Requesting physician: WENDY CHASE - History of Present Illness This patient is a 53-year-old female with a past medical history of diabetes and hypertension that presents to the ED on 08/21/18 with complaints of fever, tachycardia, generalized weakness, dizziness, dysuria and suprapubic discomfort for the past 2 days with accompanying fever and chills. Patient reports subjective fever at home of 101.5. and elevated blood sugars in the range of 300-400. On admission WBC 14.3, Creatinine 1.6, HbA1C 13.0, AST 48, ALT 58, ALP 354, Lactic Acid 1.8, Temperature 101.5, HR 131, BP 175/97. U/A with Pyuria , WBC >182, Large LE. CXR shows no consolidation. Blood cultures are in progress. Review of Systems: General: + fever, no chills, nightsweats, unintentional weight change, or change in appetite Cutaneous: no rash, pruritus Head: no headaches or injury Eyes: no changes in vision, eye pain, double vision Ears: no ear pain, ear discharge, ringing or hearing loss Nose: no nose bleeding, stuffiness Mouth & throat: no bleeding gums, no horseness, no dental problems, or swollen glands Neck: no pain, node enlargement/lumps, tyroid enlargement or tenderness Respiratory: no cough, wheezing, sputum, hemoptysis, pleuritic chest pain Cardiovascular: no chest pain, leg edema, cyanosis, PAREKH, orthopnea Musculoskeletal: no decreased joint motion, bone or joint pain, joint swelling, muscle aches Gastrointestinal: no nausea, vomiting, hematemesis, diarrhea, constipation, melena, bright red blood in stools, fecal incontinence, jaundice Genitourinary/Reproductive: + frequent urination, Suprapubic pain, CVA tenderness Neurogical: no seizures, no headaches, no weakness, no paresthesias, no loss of speech or vision; no memory loss, no vertigo, no tremors, no numbness Psychiatric: stable mood; no excessive anxiety, sadness or moodiness Medications and Allergies Allergies Allergy/AdvReac Type Severity Reaction Status Date / Time No Known Allergies Allergy Verified 02/12/14 18:07 Home Medications Medication Instructions Recorded Confirmed Last Taken Type Aspirin [Aspirin BABY CHEW TAB] 81 mg PO QDAY 02/15/14 02/15/14 Unknown History Pravastatin Sodium [Pravastatin] 20 mg PO DAILY 02/15/14 02/15/14 Unknown History metFORMIN [Glucophage] 850 mg PO BID #60 tablet 02/17/14 Unknown Rx Losartan [Cozaar] 50 mg PO QDAY #30 tablet 02/20/14 Unknown Rx Metoprolol [Lopressor TAB] 50 mg PO BID #60 tablet 02/20/14 Unknown Rx Active Meds: Active Medications Acetaminophen (Tylenol) 650 mg PO Q4H PRN PRN Reason: Pain MILD(1-3)/Fever >100.5/CINTRON Aspirin (Baby Aspirin) 81 mg PO QDAY [facility] Last Admin: 08/22/18 10:24 Dose: 81 mg Documented by: Enoxaparin Sodium (Lovenox) 40 mg SUB-Q QDAY [facility] Last Admin: 08/22/18 10:24 Dose: 40 mg Documented by: Famotidine (Pepcid) 20 mg IV BID [facility] Last Admin: 08/22/18 10:24 Dose: 20 mg Documented by: Hydralazine HCl (Apresoline) 10 mg IV Q3H PRN PRN Reason: Blood Pressure Last Admin: 08/22/18 08:30 Dose: 10 mg Documented by: Hydromorphone HCl (Dilaudid) 0.5 mg IV Q3H PRN PRN Reason: Pain , Severe (7-10) Sodium Chloride (Nacl 0.9% 1000 Ml) 1,000 mls @ 100 mls/hr IV DIRECT MARIA ESTHER Last Admin: 08/22/18 10:26 Dose: 100 mls/hr Documented by: Ceftriaxone Sodium (Rocephin/Ns 2 Gm/100 Ml) 2 gm in 100 mls @ 200 mls/hr IV Q24HR [facility]; Protocol Last Admin: 08/22/18 10:21 Dose: 200 mls/hr Documented by: Insulin Human Isoph/Insulin Regular (Humulin 70/30) 25 unit SUB-Q BIDDIAB [facility] Insulin Human Lispro (Humalog) 0 unit SUB-Q ACHS [facility]; Protocol Last Admin: 08/22/18 12:58 Dose: 3 unit Documented by: Losartan Potassium (Cozaar) 100 mg PO QDAY [facility] Last Admin: 08/22/18 10:23 Dose: 100 mg Documented by: Metoclopramide HCl (Reglan) 10 mg IV Q6H PRN PRN Reason: Nausea And Vomiting Metoprolol Tartrate (Lopressor) 50 mg PO BID [facility] Last Admin: 08/22/18 10:24 Dose: 50 mg Documented by: Ondansetron HCl (Zofran) 4 mg IV Q8H PRN PRN Reason: Nausea And Vomiting Oxycodone/Acetaminophen (Percocet 5/325) 1 tab PO Q6H PRN PRN Reason: Pain, Moderate (4-6) Pravastatin Sodium (Pravachol) 20 mg PO QDAY [facility] Last Admin: 08/22/18 10:23 Dose: 20 mg Documented by: Sodium Chloride (Sodium Chloride Flush Syringe 10 Ml) 10 ml IV BID [facility] Last Admin: 08/22/18 10:26 Dose: 10 ml Documented by: Sodium Chloride (Sodium Chloride Flush Syringe 10 Ml) 10 ml IV PRN PRN PRN Reason: LINE FLUSH Physical Examination - Physical Exam Narrative exam: Constitutional: Alert, cooperative. No acute distress Head, Ears, Nose: Normocephalic, atraumatic. External ears, nose normal Eyes: Conjunctivae/corneas clear. No icterus. No ptosis. Neck: Supple, no meningeal signs Oral: dentition fair. No thrush. Cardiovascular: S1, S2 normal. Respiratory: Good air entry, clear to auscultation bilaterally GI: Soft, non-tender; bowel sounds normal. No peritoneal signs : No suprapubiic pain or CVA tenderness Musculoskeletal: No pedal edema, no cyanosis. Skin: No rash or abscess. Hem/Lymphatic: No palpable cervical or supraclavicular nodes. No lymphangitis Psych: Mood Good.. Affect normal Neurological: Awake, alert, oriented. - Constitutional Vitals: Vital Signs Temp Pulse Resp BP Pulse Ox 98.6 F 62 18 154/101 100 08/22/18 12:30 08/22/18 12:30 08/22/18 12:30 08/22/18 12:30 08/22/18 12:30 Temperature -Last 24 Hours Temperature 98.6 F Temperature 98.5 F Temperature 99.3 F Temperature 99.3 F Temperature 100.3 F Temperature 101.5 F Temperature 101.5 F Results - Labs CBC & Chem 7: 08/22/18 05:53 08/22/18 05:53 Labs: Abnormal lab results 08/21/18 08/21/18 08/21/18 Range/Units 15:50 15:50 15:50 WBC (4.5-11.0) K/mm3 RBC (3.65-5.03) M/mm3 Lymph % (Auto) (13.4-35.0) % Lymph # (1.2-5.4) K/mm3 Seg Neutrophils % (40.0-70.0) % Monocytes % (Manual) (0.0-7.3) % Seg Neutrophils # (1.8-7.7) K/mm3 Seg Neutrophils # Man (1.8-7.7) K/mm3 Monocytes # (Manual) (0.0-0.8) K/mm3 APTT 43.4 H (24.2-36.6) Sec. Sodium 130 L (137-145) mmol/L Chloride 91.0 L (98-107) mmol/L Carbon Dioxide (22-30) mmol/L BUN 20 H (7-17) mg/dL Creatinine 1.6 H (0.7-1.2) mg/dL Glucose 464 H (65-100) mg/dL POC Glucose (70-105) Hemoglobin A1c (4-6) % Lactic Acid (0.7-2.0) mmol/L AST 64 H (5-40) units/L ALT 72 H (7-56) units/L Alkaline Phosphatase 389 H (35-129) units/L Total Protein 8.7 H (6.3-8.2) g/dL Albumin 3.4 L (3.9-5) g/dL Urine WBC (Auto) > 182.0 H (0.0-6.0) /HPF 08/21/18 08/21/18 08/21/18 Range/Units 15:50 15:52 16:24 WBC 14.3 H (4.5-11.0) K/mm3 RBC 3.62 L (3.65-5.03) M/mm3 Lymph % (Auto) 7.0 L (13.4-35.0) % Lymph # 1.0 L (1.2-5.4) K/mm3 Seg Neutrophils % 88.9 H (40.0-70.0) % Monocytes % (Manual) (0.0-7.3) % Seg Neutrophils # 12.7 H (1.8-7.7) K/mm3 Seg Neutrophils # Man (1.8-7.7) K/mm3 Monocytes # (Manual) (0.0-0.8) K/mm3 APTT (24.2-36.6) Sec. Sodium (137-145) mmol/L Chloride (98-107) mmol/L Carbon Dioxide (22-30) mmol/L BUN (7-17) mg/dL Creatinine (0.7-1.2) mg/dL Glucose (65-100) mg/dL POC Glucose 401 H (70-105) Hemoglobin A1c (4-6) % Lactic Acid 2.30 H* (0.7-2.0) mmol/L AST (5-40) units/L ALT (7-56) units/L Alkaline Phosphatase (35-129) units/L Total Protein (6.3-8.2) g/dL Albumin (3.9-5) g/dL Urine WBC (Auto) (0.0-6.0) /HPF 08/21/18 08/21/18 08/21/18 Range/Units 18:53 20:26 21:37 WBC (4.5-11.0) K/mm3 RBC (3.65-5.03) M/mm3 Lymph % (Auto) (13.4-35.0) % Lymph # (1.2-5.4) K/mm3 Seg Neutrophils % (40.0-70.0) % Monocytes % (Manual) (0.0-7.3) % Seg Neutrophils # (1.8-7.7) K/mm3 Seg Neutrophils # Man (1.8-7.7) K/mm3 Monocytes # (Manual) (0.0-0.8) K/mm3 APTT (24.2-36.6) Sec. Sodium (137-145) mmol/L Chloride (98-107) mmol/L Carbon Dioxide (22-30) mmol/L BUN (7-17) mg/dL Creatinine (0.7-1.2) mg/dL Glucose (65-100) mg/dL POC Glucose 387 H 446 H (70-105) Hemoglobin A1c 13.0 H (4-6) % Lactic Acid (0.7-2.0) mmol/L AST (5-40) units/L ALT (7-56) units/L Alkaline Phosphatase (35-129) units/L Total Protein (6.3-8.2) g/dL Albumin (3.9-5) g/dL Urine WBC (Auto) (0.0-6.0) /HPF 08/22/18 08/22/18 08/22/18 Range/Units 05:53 05:53 07:31 WBC 26.9 H (4.5-11.0) K/mm3 RBC (3.65-5.03) M/mm3 Lymph % (Auto) (13.4-35.0) % Lymph # (1.2-5.4) K/mm3 Seg Neutrophils % (40.0-70.0) % Monocytes % (Manual) 16.5 H (0.0-7.3) % Seg Neutrophils # (1.8-7.7) K/mm3 Seg Neutrophils # Man 16.1 H (1.8-7.7) K/mm3 Monocytes # (Manual) 4.4 H (0.0-0.8) K/mm3 APTT (24.2-36.6) Sec. Sodium 136 L (137-145) mmol/L Chloride (98-107) mmol/L Carbon Dioxide 19 L (22-30) mmol/L BUN 18 H (7-17) mg/dL Creatinine 1.6 H (0.7-1.2) mg/dL Glucose 326 H (65-100) mg/dL POC Glucose 305 H (70-105) Hemoglobin A1c (4-6) % Lactic Acid (0.7-2.0) mmol/L AST 48 H (5-40) units/L ALT 58 H (7-56) units/L Alkaline Phosphatase 354 H (35-129) units/L Total Protein (6.3-8.2) g/dL Albumin 2.6 L (3.9-5) g/dL Urine WBC (Auto) (0.0-6.0) /HPF 08/22/18 Range/Units 11:26 WBC (4.5-11.0) K/mm3 RBC (3.65-5.03) M/mm3 Lymph % (Auto) (13.4-35.0) % Lymph # (1.2-5.4) K/mm3 Seg Neutrophils % (40.0-70.0) % Monocytes % (Manual) (0.0-7.3) % Seg Neutrophils # (1.8-7.7) K/mm3 Seg Neutrophils # Man (1.8-7.7) K/mm3 Monocytes # (Manual) (0.0-0.8) K/mm3 APTT (24.2-36.6) Sec. Sodium (137-145) mmol/L Chloride (98-107) mmol/L Carbon Dioxide (22-30) mmol/L BUN (7-17) mg/dL Creatinine (0.7-1.2) mg/dL Glucose (65-100) mg/dL POC Glucose 217 H (70-105) Hemoglobin A1c (4-6) % Lactic Acid (0.7-2.0) mmol/L AST (5-40) units/L ALT (7-56) units/L Alkaline Phosphatase (35-129) units/L Total Protein (6.3-8.2) g/dL Albumin (3.9-5) g/dL Urine WBC (Auto) (0.0-6.0) /HPF - Imaging and Cardiology Chest x-ray: report reviewed (no consolidation) Assessment and Plan Cultures: 08/21/18 Blood in progress 53-year-old female with a past medical history of diabetes and hypertension that presents to the ED on 08/21/18 with complaints of fever, tachycardia, generalized weakness, dizziness, dysuria and suprapubic discomfort for the past 2 days with accompanying fever and chills. Patient reports subjective fever at home of 101.5. and elevated blood sugars in the range of 300-400. Admitted with: 1. Sepsis on admission.; evidenced by leukocytosis, fever and tachycardia. Etiology most likely UTI. U/A consistent with UTI. Urine culture in progress. Blood culture in progress. CXR no consolidation. Currently being treated with ceftriaxone. 2. UTI: U/A with Pyuria , WBC >182, Large LE. Urine culture in progress. Will order Renal US to evaluate for hydronephrosis, pyeloneprosis, mass. 3. Uncontrolled Diabetes Type 2: recommend tight gylcemic control 4, Transaminitis: recommend RUQ ultrasound Recommendations: -follow-up blood cultures -follow-up urine culture -continue Ceftriaxone -Order renal US PAT [facility] M: [id number] O:[phone]
[2018-08-22] MEDS ORDERED: NORVASC PO ONE (19:19)
[2018-08-22] MEDS ORDERED: ZESTRIL PO ONE (19:20)
[2018-08-22] MEDS: COLACE PO SCH (23:33)
[2018-08-23] MEDS: APRESOLINE IV PRN (05:41)
[2018-08-23] MEDS ORDERED: CARDIZEM IV ONE (05:43)
--- NOTE | 2018-08-23 06:36 | Event Note ---
Date: 08/23/18 Received a call stating patient had a blood pressure 222/117 with heart rate 152. Patient was treated with IV hydralazine 10 mg and was responsive currently blood pressure is 130/74 with heart rate 93bpm.
[2018-08-23] MEDS: ROCEPHIN/NS 2 GM/100 ML 2 GM/100 ML BAG IV SCH (09:19)
[2018-08-23] MEDS: HumaLOG SUB-Q SCH ×4 (09:21→22:56)
[2018-08-23] MEDS: PRAVACHOL PO SCH (09:22)
[2018-08-23] MEDS: BABY ASPIRIN PO SCH (09:22)
[2018-08-23] MEDS: LOVENOX SUB-Q SCH (09:22)
[2018-08-23] MEDS: NORVASC PO SCH (09:23)
[2018-08-23] MEDS: PEPCID IV SCH ×2 (09:23→21:11)
[2018-08-23] MEDS: COLACE PO SCH ×2 (09:23→21:11)
[2018-08-23] MEDS: ZESTRIL PO SCH (09:23)
[2018-08-23] MEDS: SODIUM CHLORIDE FLUSH SYRINGE 10 ML IV SCH ×2 (09:24→21:11)
--- NOTE | 2018-08-23 09:48 | Progress Note ---
Assessment and Plan Cultures: 08/21/18 Blood: GNR 08/21/18: Urine: GNR 53-year-old female with a past medical history of diabetes and hypertension that presents to the ED on 08/21/18 with complaints of fever, tachycardia, gene ralized weakness, dizziness, dysuria and suprapubic discomfort for the past 2 days with accompanying fever and chills. Patient reports subjective fever at home of 101.5. and elevated blood sugars in the range of 300-400. Admitted with: 1. Sepsis on admission.; Improved. Leukocytosis trending down. Etiology most likely UTI. U/A consistent with UTI. Urine culture in progress. Blood culture GNR. CXR no consolidation. Currently being treated with ceftriaxone. 2. GNR Bacteremia: Blood cultures grew GNR. Likely source,,UTI.. Will follow-up for ID and sensitivity. Continue Ceftriaxone. 3. UTI: U/A with Pyuria , WBC >182, Large LE. Urine culture grew GNR. Follow- up ID and sensitivity. Will order Renal US to evaluate for hydronephrosis, pyeloneprosis, mass. 4. Uncontrolled Diabetes Type 2: recommend tight gylcemic control 5. Transaminitis: RUQ ultrasound ordered 6. ROD: antibiotics renally dosed Recommendations: -continue Ceftriaxone 2gms IV every 24 hours, D3 -follow-up blood cultures for ID and sensitivity -follow-up urine culture for ID and sensitivity -follow-up renal US -Order RUQ ultrasound PAT [facility] M: [phone] O:[phone] Subjective Date of service: 08/23/18 Interval history: Patient seen and examined. No pain or generalized weakness reported. Objective - Exam Narrative Exam: Constitutional: Alert, cooperative. No acute distress Head, Ears, Nose: Normocephalic, atraumatic. External ears, nose normal Eyes: Conjunctivae/corneas clear. No icterus. No ptosis. Neck: Supple, no meningeal signs Oral: dentition fair. No thrush. Cardiovascular: S1, S2 normal. Respiratory: Good air entry, clear to auscultation bilaterally GI: Soft, non-tender; bowel sounds normal. No peritoneal signs, No RUQ pain. : No suprapubiic pain or CVA tenderness Musculoskeletal: No pedal edema, no cyanosis. Skin: No rash or abscess. Hem/Lymphatic: No palpable cervical or supraclavicular nodes. No lymphangitis Psych: Mood Good.. Affect normal Neurological: Awake, alert, oriented. - Constitutional Vitals: Vital Signs Temp Pulse Resp BP Pulse Ox 100.0 F H 121 H 20 180/100 99 08/23/18 05:22 08/23/18 09:23 08/23/18 06:22 08/23/18 09:23 08/23/18 05:22 Temperature -Last 24 Hours Temperature 100.0 F Temperature 98.8 F Temperature 98.4 F Temperature 98.6 F - Labs CBC & Chem 7: 08/23/18 10:19 08/22/18 05:53 Labs: Abnormal lab results 08/22/18 08/22/18 08/23/18 Range/Units 11:26 21:11 08:15 POC Glucose 217 H 221 H 198 H (70-105)
[2018-08-23 10:48] LABS: Basophils # (Auto) 0.1 K/mm3 (0.0-0.1); Basophils % (Auto) 0.3 % (0.0-1.8); Eosinophils % (Auto) 0.2 % (0.0-4.3); Hematocrit 31.2 % (30.3-42.9); Hemoglobin 10.4 gm/dl (10.1-14.3); Lymphocytes % (Auto) 10.5 % (13.4-35.0); Mean Corpuscular HGB Conc 33 % (30-34); Mean Corpuscular Volume 86 fl (79-97); Monocytes # (Auto) 1.8 K/mm3 (0.0-0.8); Monocytes % (Auto) 9.3 % (0.0-7.3); Platelet Count 220 K/mm3 (140-440); Red Blood Count 3.63 M/mm3 (3.65-5.03); Red Cell Distribution Width 15.5 % (13.2-15.2)
[2018-08-23] MEDS: MIRALAX 3350 PO PRN (13:43)
--- NOTE | 2018-08-23 15:31 | Progress Note ---
Assessment and Plan Assessment and plan: 53-year-old woman with history of hypertension and diabetes Who presents to the hospital with fever and dysuria and suprapubic pain. Sepsis/UTI/gram-negative bacteremia Continue antibiotics, ID consult reviewed Type 2 diabetes with persistent hyperglycemia, A1c 13.5 Optimize insulins, patient is self-pay, she was supposed to be on 70/30 insulin but has not been taking it her family is to bring her insurance card this evening Hypertension with hypertensive urgency Optimize blood pressure medications Nonadherence to medications Patient has been counseled on preventative health 17 minutes DVT prophylaxis Lovenox History Interval history: Review of systems Constitutional: She admits to having low-grade fever CVS: No chest pain, no orthopnea, no dyspnea on exertion, no pedal edema GI: Suprapubic pain and dysuria is improved, no diarrhea, no vomiting, no constipation Respiratory: no wheezing, no coughing Hospitalist Physical - Physical exam Narrative exam: General.: Appears well, no distress, nontoxic HEENT: Moist mucous membranes, extraocular muscles intact, no lymphadenopathy Neck: supple Cardiac: S1-S2 heard Lungs: clear to auscultation bilaterally Abdomen: soft , nontender, nondistended, bowel sounds positive Extremities: no edema clubbing or cyanosis Skin: no rash or lesions Neurologic: no gross focal deficits Psych: calm, and cooperative - Constitutional Vitals: Temp Pulse Resp BP Pulse Ox 98.6 F 119 H 20 152/81 97 08/23/18 12:45 08/23/18 12:45 08/23/18 12:45 08/23/18 12:45 08/23/18 12:45 General appearance: Present: no acute distress, mild distress, well-nourished Results - Labs CBC & Chem 7: 08/23/18 10:19 08/22/18 05:53 Labs: Laboratory Last Values WBC 19.1 K/mm3 (4.5-11.0) H 08/23/18 10:19 RBC 3.63 M/mm3 (3.65-5.03) L 08/23/18 10:19 Hgb 10.4 gm/dl (10.1-14.3) 08/23/18 10:19 Hct 31.2 % (30.3-42.9) 08/23/18 10:19 MCV 86 fl (79-97) 08/23/18 10:19 MCH 29 pg (28-32) 08/23/18 10:19 MCHC 33 % (30-34) 08/23/18 10:19 RDW 15.5 % (13.2-15.2) H 08/23/18 10:19 Plt Count 220 K/mm3 (140-440) 08/23/18 10:19 Lymph % (Auto) 10.5 % (13.4-35.0) L 08/23/18 10:19 [place] % (Auto) 9.3 % (0.0-7.3) H 08/23/18 10:19 Eos % (Auto) 0.2 % (0.0-4.3) 08/23/18 10:19 Baso % (Auto) 0.3 % (0.0-1.8) 08/23/18 10:19 Lymph # 2.0 K/mm3 (1.2-5.4) 08/23/18 10:19 [place] # 1.8 K/mm3 (0.0-0.8) H 08/23/18 10:19 Eos # 0.0 K/mm3 (0.0-0.4) 08/23/18 10:19 Baso # 0.1 K/mm3 (0.0-0.1) 08/23/18 10:19 Add Manual Diff Complete 08/22/18 05:53 Total Counted 200 08/22/18 05:53 Seg Neutrophils % 79.7 % (40.0-70.0) H 08/23/18 10:19 Seg Neuts % (Manual) 60.0 % (40.0-70.0) 08/22/18 05:53 5.5 % 08/22/18 05:53 16.0 % (13.4-35.0) 08/22/18 05:53 Reactive Lymphs % (Man) 0 % 08/22/18 05:53 16.5 % (0.0-7.3) H 08/22/18 05:53 0 % (0.0-4.3) 08/22/18 05:53 0 % (0.0-1.8) 08/22/18 05:53 2.0 % 08/22/18 05:53 0 % 08/22/18 05:53 0 % 08/22/18 05:53 0 % 08/22/18 05:53 Nucleated RBC % Not Reportable 08/22/18 05:53 Seg Neutrophils # 15.2 K/mm3 (1.8-7.7) H 08/23/18 10:19 Seg Neutrophils # Man 16.1 K/mm3 (1.8-7.7) H 08/22/18 05:53 Band Neutrophils # 1.5 K/mm3 08/22/18 05:53 4.3 K/mm3 (1.2-5.4) 08/22/18 05:53 Abs React Lymphs (Man) 0.0 K/mm3 08/22/18 05:53 4.4 K/mm3 (0.0-0.8) H 08/22/18 05:53 0.0 K/mm3 (0.0-0.4) 08/22/18 05:53 0.0 K/mm3 (0.0-0.1) 08/22/18 05:53 0.5 K/mm3 08/22/18 05:53 0.0 K/mm3 08/22/18 05:53 0.0 K/mm3 08/22/18 05:53 Blast Cells # 0.0 K/mm3 08/22/18 05:53 WBC Morphology Not Reportable 08/22/18 05:53 Hypersegmented Neuts Not Reportable 08/22/18 05:53 Hyposegmented Neuts Not Reportable 08/22/18 05:53 Hypogranular Neuts Not Reportable 08/22/18 05:53 Not Reportable 08/22/18 05:53 Not Reportable 08/22/18 05:53 Not Reportable 08/22/18 05:53 Not Reportable 08/22/18 05:53 Not Reportable 08/22/18 05:53 Not Reportable 08/22/18 05:53 Consistent w auto 08/22/18 05:53 Not Reportable 08/22/18 05:53 Plt Clumps, EDTA Not Reportable 08/22/18 05:53 Not Reportable 08/22/18 05:53 Not Reportable 08/22/18 05:53 Not Reportable 08/22/18 05:53 Plt Morphology Comment Not Reportable 08/22/18 05:53 RBC Morphology Not Reportable 08/22/18 05:53 Dimorphic RBCs Not Reportable 08/22/18 05:53 Not Reportable 08/22/18 05:53 1+ 08/22/18 05:53 Not Reportable 08/22/18 05:53 1+ 08/22/18 05:53 Not Reportable 08/22/18 05:53 Not Reportable 08/22/18 05:53 Not Reportable 08/22/18 05:53 Not Reportable 08/22/18 05:53 Not Reportable 08/22/18 05:53 Not Reportable 08/22/18 05:53 Not Reportable 08/22/18 05:53 Not Reportable 08/22/18 05:53 Not Reportable 08/22/18 05:53 Not Reportable 08/22/18 05:53 Not Reportable 08/22/18 05:53 Not Reportable 08/22/18 05:53 Not Reportable 08/22/18 05:53 Not Reportable 08/22/18 05:53 Not Reportable 08/22/18 05:53 Acanthocytes (Spur) Not Reportable 08/22/18 05:53 Rouleaux Not Reportable 08/22/18 05:53 Not Reportable 08/22/18 05:53 Not Reportable 08/22/18 05:53 Not Reportable 08/22/18 05:53 Not Reportable 08/22/18 05:53 Hem Pathologist Commnt No 08/22/18 05:53 APTT 43.4 Sec. (24.2-36.6) H 08/21/18 15:50 Sodium 136 mmol/L (137-145) L 08/22/18 05:53 Potassium 3.9 mmol/L (3.6-5.0) 08/22/18 05:53 Chloride 99.4 mmol/L (98-107) 08/22/18 05:53 Carbon Dioxide 19 mmol/L (22-30) L 08/22/18 05:53 22 mmol/L 08/22/18 05:53 BUN 18 mg/dL (7-17) H 08/22/18 05:53 1.6 mg/dL (0.7-1.2) H 08/22/18 05:53 Estimated GFR 41 ml/min 08/22/18 05:53 11 % 08/22/18 05:53 Glucose 326 mg/dL (65-100) H 08/22/18 05:53 POC Glucose 129 (70-105) H 08/23/18 12:33 13.0 % (4-6) H 08/21/18 20:26 Lactic Acid 1.80 mmol/L (0.7-2.0) 08/21/18 20:26 Calcium 8.8 mg/dL (8.4-10.2) 08/22/18 05:53 0.40 mg/dL (0.1-1.2) 08/22/18 05:53 AST 48 units/L (5-40) H 08/22/18 05:53 ALT 58 units/L (7-56) H 08/22/18 05:53 354 units/L (35-129) H 08/22/18 05:53 < 0.010 ng/mL (0.00-0.029) 08/21/18 15:50 8.0 g/dL (6.3-8.2) 08/22/18 05:53 2.6 g/dL (3.9-5) L 08/22/18 05:53 0.5 % 08/22/18 05:53 Yellow (Yellow) 08/21/18 15:50 Slightly-cloudy (Clear) 08/21/18 15:50 6.0 (5.0-7.0) 08/21/18 15:50 Ur Specific [place] 1.009 (1.003-1.030) 08/21/18 15:50 100 mg/dl mg/dL (Negative) 08/21/18 15:50 >=500 mg/dL (Negative) 08/21/18 15:50 Neg mg/dL (Negative) 08/21/18 15:50 Sm (Negative) 08/21/18 15:50 Neg (Negative) 08/21/18 15:50 Neg (Negative) 08/21/18 15:50 < 2.0 mg/dL (<2.0) 08/21/18 15:50 Ur Leukocyte Esterase Lg (Negative) 08/21/18 15:50 > 182.0 /HPF (0.0-6.0) H 08/21/18 15:50 3.0 /HPF (0.0-6.0) 08/21/18 15:50 U Epithel Cells (Auto) 2.0 /HPF (0-13.0) 08/21/18 15:50 1+ /HPF (Negative) 08/21/18 15:50 Few /HPF 08/21/18 15:50 Blood Type O POSITIVE 08/21/18 16:20 Antibody Screen Negative 08/21/18 16:20 Active Medications - Current Medications Current Medications: Generic Name Dose Route Start Last Admin Trade Name Freq PRN Reason Stop Dose Admin Acetaminophen 650 mg 08/21/18 20:13 Tylenol PO Q4H PRN Pain MILD(1-3)/Fever >100.5/CINTRON Amlodipine Besylate 10 mg 08/23/18 10:00 08/23/18 09:23 Norvasc PO 10 mg QDAY MARIA ESTHER Administration Aspirin 81 mg 08/21/18 20:00 08/23/18 09:22 Baby Aspirin PO 81 mg QDAY MARIA ESTHER Administration Docusate Sodium 100 mg 08/22/18 23:45 08/23/18 09:23 Colace PO 100 mg BID MARIA ESTHER Administration Enoxaparin Sodium 40 mg 08/21/18 19:00 08/23/18 09:22 Lovenox SUB-Q 40 mg QDAY MARIA ESTHER Administration Famotidine 20 mg 08/21/18 22:00 08/23/18 09:23 Pepcid IV 20 mg BID MARIA ESTHER Administration Hydralazine HCl 10 mg 08/21/18 19:57 08/23/18 05:41 Apresoline IV 10 mg Q3H PRN Administration Blood Pressure Hydromorphone HCl 0.5 mg 08/21/18 20:13 Dilaudid IV Q3H PRN Pain , Severe (7-10) Ceftriaxone Sodium 2 gm in 100 mls @ 200 mls/hr 08/21/18 21:00 08/23/18 09:19 Rocephin/Ns 2 Gm/100 Ml IV 200 mls/hr Q24HR MARIA ESTHER Administration Protocol Insulin Human Isoph/Insulin Regular 25 unit 08/22/18 17:00 08/23/18 09:21 Humulin 70/30 SUB-Q 25 unit BIDDIAB MARIA ESTHER Administration Insulin Human Lispro 0 unit 08/21/18 22:00 08/23/18 13:23 Humalog SUB-Q Not Given ACHS [facility] Protocol Lisinopril 40 mg 08/23/18 10:00 08/23/18 09:23 Zestril PO 40 mg QDAY MARIA ESTHER Administration Metoclopramide HCl 10 mg 08/21/18 20:13 Reglan IV Q6H PRN Nausea And Vomiting Ondansetron HCl 4 mg 08/21/18 20:13 Zofran IV Q8H PRN Nausea And Vomiting Oxycodone/Acetaminophen 1 tab 08/21/18 20:13 Percocet 5/325 PO Q6H PRN Pain, Moderate (4-6) Polyethylene Glycol 17 gm 08/22/18 23:19 08/23/18 13:43 Miralax 3350 PO 17 gm QDAY PRN Administration Constipation Pravastatin Sodium 20 mg 08/21/18 22:00 08/23/18 09:22 Pravachol PO 20 mg QDAY MARIA ESTHER Administration Sodium Chloride 10 ml 08/21/18 22:00 08/23/18 09:24 Sodium Chloride Flush Syringe 10 Ml IV 10 ml BID MARIA ESTHER Administration Sodium Chloride 10 ml 08/21/18 20:13 Sodium Chloride Flush Syringe 10 Ml IV PRN PRN LINE FLUSH
[2018-08-23] MEDS ORDERED: LEVAQUIN 750MG/150ML 750 MG/150 ML BAG IV SCH (17:00)
[2018-08-24] MEDS: APRESOLINE IV PRN ×3 (00:16→17:23)
[2018-08-24] MEDS ORDERED: NORMODYNE IV ONE (01:33)
[2018-08-24] MEDS: TYLENOL PO PRN ×2 (07:03→20:59)
[2018-08-24] MEDS: HumaLOG SUB-Q SCH ×4 (07:30→21:50)
--- NOTE | 2018-08-24 09:41 | Progress Note ---
Assessment and Plan Cultures: 08/21/18 Blood: MDR E. coli, suceptible to ceftriaxone 08/21/18: Urine: MDR E. coli, suceptible to ceftriaxone 53-year-old female with a past medical history of diabetes and hypertension that presents to the ED on 08/21/18 with complaints of fever, tachycardia, generalized weakness, dizziness, dysuria and suprapubic discomfort for the past 2 days with accompanying fever and chills. Patient reports subjective fever at home of 101.5. and elevated blood sugars in the range of 300-400. Admitted with: 1. Sepsis on admission.; Fever spike 101.1 noted. . Etiology most likely UTI. U/A consistent with UTI. Urine culture in progress. Blood culture GNR. CXR no consolidation. Currently being treated with ceftriaxone. 2. E.coli Bacteremia: Blood cultures grew MDR E. coli, suceptible to ceftiaxone . Source UTI. 3. UTI: U/A with Pyuria , WBC >182, Large LE. Urine culture grew MDR E. coli, suceptible to ceftriaxone.. Renal US shows Nonspecific renal parenchymal disease. Right renal cysts. No acute abnormality is detected 4. Uncontrolled Diabetes Type 2: recommend tight gylcemic control 5. Transaminitis: RUQ ultrasound found no significant abnormality. 6. ROD: keep antibiotics renally dosed. Monitor creatinine. Recommendations: -continue Ceftriaxone 2gms IV every 24 hours, D4 -Repeat blood cultures , CBC and CMP ordered for tomorrow PAT [facility] M: [id number] O:[phone] Subjective Date of service: 08/24/18 Interval history: Patient seen and examined. No pain or generalized weakness reported. + Fever Objective - Exam Narrative Exam: Constitutional: Alert, cooperative. No acute distress Head, Ears, Nose: Normocephalic, atraumatic. External ears, nose normal Eyes: Conjunctivae/corneas clear. No icterus. No ptosis. Neck: Supple, no meningeal signs Oral: dentition fair. No thrush. Cardiovascular: S1, S2 normal. Respiratory: Good air entry, clear to auscultation bilaterally GI: Soft, non-tender; bowel sounds normal. No peritoneal signs, No RUQ pain. : No suprapubiic pain or CVA tenderness Musculoskeletal: No pedal edema, no cyanosis. Skin: No rash or abscess. Hem/Lymphatic: No palpable cervical or supraclavicular nodes. No lymphangitis Psych: Mood Good.. Affect normal Neurological: Awake, alert, oriented. - Constitutional Vitals: Vital Signs Temp Pulse Resp BP Pulse Ox 101.1 F H 118 H 18 169/89 99 08/24/18 06:47 08/24/18 06:47 08/24/18 06:47 08/24/18 06:47 08/24/18 06:47 Temperature -Last 24 Hours Temperature 101.1 F Temperature 100.0 F Temperature 98.8 F Temperature 98.8 F Temperature 98.6 F - Labs CBC & Chem 7: 08/23/18 10:19 08/22/18 05:53 Labs: Abnormal lab results 08/23/18 08/23/18 08/23/18 Range/Units 10:19 12:33 18:38 WBC 19.1 H (4.5-11.0) K/mm3 RBC 3.63 L (3.65-5.03) M/mm3 RDW 15.5 H (13.2-15.2) % Lymph % (Auto) 10.5 L (13.4-35.0) % [place] % (Auto) 9.3 H (0.0-7.3) % [place] # 1.8 H (0.0-0.8) K/mm3 Seg Neutrophils % 79.7 H (40.0-70.0) % Seg Neutrophils # 15.2 H (1.8-7.7) K/mm3 POC Glucose 129 H 194 H (70-105) 08/23/18 08/23/18 08/24/18 Range/Units 22:10 22:56 08:04 WBC (4.5-11.0) K/mm3 RBC (3.65-5.03) M/mm3 RDW (13.2-15.2) % Lymph % (Auto) (13.4-35.0) % [place] % (Auto) (0.0-7.3) % [place] # (0.0-0.8) K/mm3 Seg Neutrophils % (40.0-70.0) % Seg Neutrophils # (1.8-7.7) K/mm3 POC Glucose 62 L 178 H 168 H (70-105)
--- NOTE | 2018-08-24 10:28 | Ultrasound Report ---
LIMITED RUQ ABDOMINAL ULTRASOUND INDICATION: evaluate for [place], Pyelo, Mass. Transaminitis. COMPARISON: No relevant prior imaging study available. FINDINGS: Pancreas: Visualized portions show no significant abnormality. Abdominal Aorta: No significant abnormality. IVC: No significant abnormality. Liver: The liver measures 15 cm in length. No significant abnormality. Normal hepatopedal blood flow in the main portal vein. Gallbladder: The gallbladder is contracted but no obvious stones or sludge. Bile ducts: No significant abnormality. Common bile duct measures 2.2 mm. Right kidney: The right kidney is mildly echogenic consistent with nonspecific renal parenchymal dise ase. Few small right renal cysts are identified.. Free fluid: None. Additional Findings: None. IMPRESSION: Contracted gallbladder but no obvious cholelithiasis. Nonspecific renal parenchymal disease. Right renal cysts. No acute abnormality is detected. ULTRASOUND RENAL INDICATION / CLINICAL INFORMATION: evaluate for [place], Pyelo, Mass. COMPARISON: None available. FINDINGS: RIGHT KIDNEY: Length = 11.2 cm. [normal > 9 cm] - Parenchymal Thickness = 1.5 cm. [normal > 1.5 cm] - Echogenicity: Increased - Hydronephrosis: None. - Cyst or mass: There are 3 cysts in the mid to inferior right kidney ranging from 1.4 cm to 2.2 cm. - Stones: None seen. LEFT KIDNEY: Length = 9.8 cm. [normal > 9 cm] - Parenchymal Thickness = 1.6 cm. [normal > 1.5 cm] - Echogenicity: Increased - Hydronephrosis: None. - Cyst or mass: There are 3 cysts in the left kidney. 3.6 cm cyst at the superior pole. 3.0 cm cyst a t the pole. Large exophytic cyst from the inferior pole measures up to 11.7 cm. - Stones: None seen. URINARY BLADDER: Partially empty but grossly unremarkable FREE FLUID: None. ADDITIONAL FINDINGS: None. IMPRESSION: Slightly echogenic kidneys consistent with nonspecific renal parenchymal disease. Bilateral renal cy sts as described. Signer Name: Alejandro Godwin Jr, MD Signed: 08/24/2018 10:24 AM Workstation Name: [id number]
[2018-08-24] MEDS: ROCEPHIN/NS 2 GM/100 ML 2 GM/100 ML BAG IV SCH (11:31)
[2018-08-24] MEDS: LOVENOX SUB-Q SCH (11:31)
[2018-08-24] MEDS: BABY ASPIRIN PO SCH (11:32)
[2018-08-24] MEDS: PRAVACHOL PO SCH (11:32)
[2018-08-24] MEDS: COLACE PO SCH ×2 (11:32→20:59)
[2018-08-24] MEDS: SODIUM CHLORIDE FLUSH SYRINGE 10 ML IV SCH ×2 (11:33→21:03)
[2018-08-24] MEDS: PEPCID IV SCH ×2 (11:33→21:03)
[2018-08-24] MEDS: ZESTRIL PO SCH (11:45)
[2018-08-24] MEDS: NORVASC PO SCH (11:45)
--- NOTE | 2018-08-24 18:29 | Progress Note ---
Assessment and Plan Assessment and plan: 53-year-old woman with history of hypertension and diabetes Who presents to the hospital with fever and dysuria and suprapubic pain. Sepsis/UTI/gram-negative bacteremia Continue antibiotics, ID consult reviewed Type 2 diabetes with persistent hyperglycemia, A1c 13.5 Optimize insulins, patient is self-pay, she was supposed to be on 70/30 insulin but has not been taking it her family is to bring her insurance card this evening Hypertension with hypertensive urgency Optimize blood pressure medications Nonadherence to medications Patient has been counseled on preventative health 17 minutes DVT prophylaxis Lovenox History Interval history: Review of systems Constitutional: She admits to having low-grade fever CVS: No chest pain, no orthopnea, no dyspnea on exertion, no pedal edema GI: Suprapubic pain and dysuria is improved, no diarrhea, no vomiting, no constipation Respiratory: no wheezing, no coughing Hospitalist Physical - Physical exam Narrative exam: General.: Appears well, no distress, nontoxic HEENT: Moist mucous membranes, extraocular muscles intact, no lymphadenopathy Neck: supple Cardiac: S1-S2 heard Lungs: clear to auscultation bilaterally Abdomen: soft , nontender, nondistended, bowel sounds positive Extremities: no edema clubbing or cyanosis Skin: no rash or lesions Neurologic: no gross focal deficits Psych: calm, and cooperative - Constitutional Vitals: Temp Pulse Resp BP Pulse Ox 98.3 F 117 H 20 186/103 100 08/24/18 16:56 08/24/18 17:23 08/24/18 16:56 08/24/18 17:23 08/24/18 16:56 General appearance: Present: no acute distress, mild distress, well-nourished Results - Labs CBC & Chem 7: 08/23/18 10:19 08/22/18 05:53 Labs: Laboratory Last Values WBC 19.1 K/mm3 (4.5-11.0) H 08/23/18 10:19 RBC 3.63 M/mm3 (3.65-5.03) L 08/23/18 10:19 Hgb 10.4 gm/dl (10.1-14.3) 08/23/18 10:19 Hct 31.2 % (30.3-42.9) 08/23/18 10:19 MCV 86 fl (79-97) 08/23/18 10:19 MCH 29 pg (28-32) 08/23/18 10:19 MCHC 33 % (30-34) 08/23/18 10:19 RDW 15.5 % (13.2-15.2) H 08/23/18 10:19 Plt Count 220 K/mm3 (140-440) 08/23/18 10:19 Lymph % (Auto) 10.5 % (13.4-35.0) L 08/23/18 10:19 [place] % (Auto) 9.3 % (0.0-7.3) H 08/23/18 10:19 Eos % (Auto) 0.2 % (0.0-4.3) 08/23/18 10:19 Baso % (Auto) 0.3 % (0.0-1.8) 08/23/18 10:19 Lymph # 2.0 K/mm3 (1.2-5.4) 08/23/18 10:19 [place] # 1.8 K/mm3 (0.0-0.8) H 08/23/18 10:19 Eos # 0.0 K/mm3 (0.0-0.4) 08/23/18 10:19 Baso # 0.1 K/mm3 (0.0-0.1) 08/23/18 10:19 Add Manual Diff Complete 08/22/18 05:53 Total Counted 200 08/22/18 05:53 Seg Neutrophils % 79.7 % (40.0-70.0) H 08/23/18 10:19 Seg Neuts % (Manual) 60.0 % (40.0-70.0) 08/22/18 05:53 5.5 % 08/22/18 05:53 16.0 % (13.4-35.0) 08/22/18 05:53 Reactive Lymphs % (Man) 0 % 08/22/18 05:53 16.5 % (0.0-7.3) H 08/22/18 05:53 0 % (0.0-4.3) 08/22/18 05:53 0 % (0.0-1.8) 08/22/18 05:53 2.0 % 08/22/18 05:53 0 % 08/22/18 05:53 0 % 08/22/18 05:53 0 % 08/22/18 05:53 Nucleated RBC % Not Reportable 08/22/18 05:53 Seg Neutrophils # 15.2 K/mm3 (1.8-7.7) H 08/23/18 10:19 Seg Neutrophils # Man 16.1 K/mm3 (1.8-7.7) H 08/22/18 05:53 Band Neutrophils # 1.5 K/mm3 08/22/18 05:53 4.3 K/mm3 (1.2-5.4) 08/22/18 05:53 Abs React Lymphs (Man) 0.0 K/mm3 08/22/18 05:53 4.4 K/mm3 (0.0-0.8) H 08/22/18 05:53 0.0 K/mm3 (0.0-0.4) 08/22/18 05:53 0.0 K/mm3 (0.0-0.1) 08/22/18 05:53 0.5 K/mm3 08/22/18 05:53 0.0 K/mm3 08/22/18 05:53 0.0 K/mm3 08/22/18 05:53 Blast Cells # 0.0 K/mm3 08/22/18 05:53 WBC Morphology Not Reportable 08/22/18 05:53 Hypersegmented Neuts Not Reportable 08/22/18 05:53 Hyposegmented Neuts Not Reportable 08/22/18 05:53 Hypogranular Neuts Not Reportable 08/22/18 05:53 Not Reportable 08/22/18 05:53 Not Reportable 08/22/18 05:53 Not Reportable 08/22/18 05:53 Not Reportable 08/22/18 05:53 Not Reportable 08/22/18 05:53 Not Reportable 08/22/18 05:53 Consistent w auto 08/22/18 05:53 Not Reportable 08/22/18 05:53 Plt Clumps, EDTA Not Reportable 08/22/18 05:53 Not Reportable 08/22/18 05:53 Not Reportable 08/22/18 05:53 Not Reportable 08/22/18 05:53 Plt Morphology Comment Not Reportable 08/22/18 05:53 RBC Morphology Not Reportable 08/22/18 05:53 Dimorphic RBCs Not Reportable 08/22/18 05:53 Not Reportable 08/22/18 05:53 1+ 08/22/18 05:53 Not Reportable 08/22/18 05:53 1+ 08/22/18 05:53 Not Reportable 08/22/18 05:53 Not Reportable 08/22/18 05:53 Not Reportable 08/22/18 05:53 Not Reportable 08/22/18 05:53 Not Reportable 08/22/18 05:53 Not Reportable 08/22/18 05:53 Not Reportable 08/22/18 05:53 Not Reportable 08/22/18 05:53 Not Reportable 08/22/18 05:53 Not Reportable 08/22/18 05:53 Not Reportable 08/22/18 05:53 Not Reportable 08/22/18 05:53 Not Reportable 08/22/18 05:53 Not Reportable 08/22/18 05:53 Not Reportable 08/22/18 05:53 Acanthocytes (Spur) Not Reportable 08/22/18 05:53 Rouleaux Not Reportable 08/22/18 05:53 Not Reportable 08/22/18 05:53 Not Reportable 08/22/18 05:53 Not Reportable 08/22/18 05:53 Not Reportable 08/22/18 05:53 Hem Pathologist Commnt No 08/22/18 05:53 APTT 43.4 Sec. (24.2-36.6) H 08/21/18 15:50 Sodium 136 mmol/L (137-145) L 08/22/18 05:53 Potassium 3.9 mmol/L (3.6-5.0) 08/22/18 05:53 Chloride 99.4 mmol/L (98-107) 08/22/18 05:53 Carbon Dioxide 19 mmol/L (22-30) L 08/22/18 05:53 22 mmol/L 08/22/18 05:53 BUN 18 mg/dL (7-17) H 08/22/18 05:53 1.6 mg/dL (0.7-1.2) H 08/22/18 05:53 Estimated GFR 41 ml/min 08/22/18 05:53 11 % 08/22/18 05:53 Glucose 326 mg/dL (65-100) H 08/22/18 05:53 POC Glucose 74 (70-105) 08/24/18 17:03 13.0 % (4-6) H 08/21/18 20:26 Lactic Acid 1.80 mmol/L (0.7-2.0) 08/21/18 20:26 Calcium 8.8 mg/dL (8.4-10.2) 08/22/18 05:53 0.40 mg/dL (0.1-1.2) 08/22/18 05:53 AST 48 units/L (5-40) H 08/22/18 05:53 ALT 58 units/L (7-56) H 08/22/18 05:53 354 units/L (35-129) H 08/22/18 05:53 < 0.010 ng/mL (0.00-0.029) 08/21/18 15:50 8.0 g/dL (6.3-8.2) 08/22/18 05:53 2.6 g/dL (3.9-5) L 08/22/18 05:53 0.5 % 08/22/18 05:53 Yellow (Yellow) 08/21/18 15:50 Slightly-cloudy (Clear) 08/21/18 15:50 6.0 (5.0-7.0) 08/21/18 15:50 Ur Specific [place] 1.009 (1.003-1.030) 08/21/18 15:50 100 mg/dl mg/dL (Negative) 08/21/18 15:50 >=500 mg/dL (Negative) 08/21/18 15:50 Neg mg/dL (Negative) 08/21/18 15:50 Sm (Negative) 08/21/18 15:50 Neg (Negative) 08/21/18 15:50 Neg (Negative) 08/21/18 15:50 < 2.0 mg/dL (<2.0) 08/21/18 15:50 Ur Leukocyte Esterase Lg (Negative) 08/21/18 15:50 > 182.0 /HPF (0.0-6.0) H 08/21/18 15:50 3.0 /HPF (0.0-6.0) 08/21/18 15:50 U Epithel Cells (Auto) 2.0 /HPF (0-13.0) 08/21/18 15:50 1+ /HPF (Negative) 08/21/18 15:50 Few /HPF 08/21/18 15:50 Blood Type O POSITIVE 08/21/18 16:20 Antibody Screen Negative 08/21/18 16:20 Active Medications - Current Medications Current Medications: Generic Name Dose Route Start Last Admin Trade Name Freq PRN Reason Stop Dose Admin Acetaminophen 650 mg 08/21/18 20:13 08/24/18 07:03 Tylenol PO 650 mg Q4H PRN Administration Pain MILD(1-3)/Fever >100.5/CINTRON Amlodipine Besylate 10 mg 08/23/18 10:00 08/24/18 11:45 Norvasc PO 10 mg QDAY MARIA ESTHER Administration Aspirin 81 mg 08/21/18 20:00 08/24/18 11:32 Baby Aspirin PO 81 mg QDAY MARIA ESTHER Administration Docusate Sodium 100 mg 08/22/18 23:45 08/24/18 11:32 Colace PO 100 mg BID MARIA ESTHER Administration Enoxaparin Sodium 40 mg 08/21/18 19:00 08/24/18 11:31 Lovenox SUB-Q 40 mg QDAY MARIA ESTHER Administration Famotidine 20 mg 08/21/18 22:00 08/24/18 11:33 Pepcid IV 20 mg BID MARIA ESTHER Administration Hydralazine HCl 10 mg 08/21/18 19:57 08/24/18 17:23 Apresoline IV 10 mg Q3H PRN Administration Blood Pressure Hydromorphone HCl 0.5 mg 08/21/18 20:13 Dilaudid IV Q3H PRN Pain , Severe (7-10) Ceftriaxone Sodium 2 gm in 100 mls @ 200 mls/hr 08/21/18 21:00 08/24/18 11:31 Rocephin/Ns 2 Gm/100 Ml IV 200 mls/hr Q24HR MARIA ESTHER Administration Protocol Insulin Human Isoph/Insulin Regular 25 unit 08/22/18 17:00 08/24/18 11:31 Humulin 70/30 SUB-Q 25 unit BIDDIAB MARIA ESTHER Administration Insulin Human Lispro 0 unit 08/21/18 22:00 08/24/18 17:25 Humalog SUB-Q Not Given ACHS [facility] Protocol Lisinopril 40 mg 08/23/18 10:00 08/24/18 11:45 Zestril PO 40 mg QDAY MARIA ESTHER Administration Metoclopramide HCl 10 mg 08/21/18 20:13 Reglan IV Q6H PRN Nausea And Vomiting Ondansetron HCl 4 mg 08/21/18 20:13 Zofran IV Q8H PRN Nausea And Vomiting Oxycodone/Acetaminophen 1 tab 08/21/18 20:13 Percocet 5/325 PO Q6H PRN Pain, Moderate (4-6) Polyethylene Glycol 17 gm 08/22/18 23:19 08/23/18 13:43 Miralax 3350 PO 17 gm QDAY PRN Administration Constipation Pravastatin Sodium 20 mg 08/21/18 22:00 08/24/18 11:32 Pravachol PO 20 mg QDAY MARIA ESTHER Administration Sodium Chloride 10 ml 08/21/18 22:00 08/24/18 11:33 Sodium Chloride Flush Syringe 10 Ml IV 10 ml BID MARIA ESTHER Administration Sodium Chloride 10 ml 08/21/18 20:13 Sodium Chloride Flush Syringe 10 Ml IV PRN PRN LINE FLUSH
[2018-08-24] MEDS: PROCARDIA XL PO SCH (20:59)
[2018-08-25 00:44] LABS: Hematocrit 31.1 % (30.3-42.9); Hemoglobin 10.3 gm/dl (10.1-14.3); Mean Corpuscular HGB Conc 33 % (30-34); Mean Corpuscular Volume 86 fl (79-97); Platelet Count 327 K/mm3 (140-440); Red Blood Count 3.61 M/mm3 (3.65-5.03); Red Cell Distribution Width 15.8 % (13.2-15.2)
[2018-08-25 01:03] LABS: Albumin 3.1 g/dL (3.9-5); Calcium 9.7 mg/dL (8.4-10.2)
[2018-08-25 02:44] LABS: Basophils % (Manual) 0 % (0.0-1.8); Eosinophils % (Manual) 0 % (0.0-4.3); Total Cells Counted 100
[2018-08-25 02:45] LABS: Anisocytosis 1+; Hypochromasia 1+; Large Platelets 1+; Platelet Estimate Consistent w Auto; Poikilocytosis 1+
[2018-08-25] MEDS ORDERED: K-DUR PO ONE ×2 (05:03→16:00)
[2018-08-25] MEDS: COLACE PO SCH ×3 (09:27→22:00)
[2018-08-25] MEDS: BABY ASPIRIN PO SCH (09:27)
[2018-08-25] MEDS: LOVENOX SUB-Q SCH (09:27)
[2018-08-25] MEDS: HumaLOG SUB-Q SCH ×3 (09:27→17:51)
[2018-08-25] MEDS: PEPCID IV SCH (09:27)
[2018-08-25] MEDS: PROCARDIA XL PO SCH ×3 (09:28→22:00)
[2018-08-25] MEDS: SODIUM CHLORIDE FLUSH SYRINGE 10 ML IV SCH ×3 (09:29→22:00)
[2018-08-25] MEDS: ROCEPHIN/NS 2 GM/100 ML 2 GM/100 ML BAG IV SCH (09:29)
[2018-08-25] MEDS: ZESTRIL PO SCH (09:35)
[2018-08-25] MEDS: PRAVACHOL PO SCH (09:36)
--- NOTE | 2018-08-25 09:56 | Progress Note ---
Assessment and Plan Cultures: 08/21/18 Blood: MDR E. coli, susceptible to all cephalosporins and fluoroquinolones 08/21/18: Urine: MDR E. coli, susceptible to all cephalosprins and fluoroquinolones 08/25/18 Blood: in progress 53-year-old female with a past medical history of diabetes and hypertension that presents to the ED on 08/21/18 with complaints of fever, tachycardia, generalized weakness, dizziness, dysuria and suprapubic discomfort for the past 2 days with accompanying fever and chills. Patient reports subjective fever at home of 101.5. and elevated blood sugars in the range of 300-400. Admitted with: 1. Sepsis on admission.; Fever spikes continuing 102.4 . Etiology most likely UTI. U/A consistent with UTI. Urine culture in progress. Blood culture GNR. CXR no consolidation. Currently being treated with ceftriaxone. 2. E.coli Bacteremia: Blood cultures grew MDR E. coli, suceptible to ceftiaxone . Source UTI. 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 Will discontinue ceftriaxone. Start Levofloxacin. 3. UTI: U/A with Pyuria , WBC >182, Large LE. Urine culture grew MDR E. coli, suceptible to ceftriaxone. Renal US shows nonspecific renal parenchymal disease. Few right renal cysts. Will order CT of abdomen/pelvis with IV contrast to evaluate for possibility of abscess. 4. Uncontrolled Diabetes Type 2: recommend tight gylcemic control 5. Transaminitis: RUQ ultrasound found no significant abnormality. 6. ROD: keep antibiotics renally dosed. Monitor creatinine. Recommendations: -Discontinue Ceftriaxone Start Lervofloxacin 750mg every 24 hours -follow-up repeat blood cultures CT Abdomen/Pelvis with IV contrast ordered to evaluate for possibility of abscess PAT [facility] M: [id number] O:[phone] Subjective Date of service: 08/25/18 Interval history: Patient seen and examined. No pain . Generalized weakness reported. +fever and chills. Objective - Exam Narrative Exam: Constitutional: Alert, cooperative. mild distress reported Head, Ears, Nose: Normocephalic, atraumatic. External ears, nose normal Eyes: Conjunctivae/corneas clear. No icterus. No ptosis. Neck: Supple, no meningeal signs Oral: dentition fair. No thrush. Cardiovascular: S1, S2 normal. Respiratory: Good air entry, clear to auscultation bilaterally GI: Soft, non-tender; bowel sounds normal. No peritoneal signs, No RUQ pain. : No suprapubiic pain or CVA tenderness Musculoskeletal: No pedal edema, no cyanosis. Skin: No rash or abscess. Hem/Lymphatic: No palpable cervical or supraclavicular nodes. No lymphangitis Psych: Mood Good.. Affect normal Neurological: Awake, alert, oriented. - Constitutional Vitals: Vital Signs Temp Pulse Resp BP Pulse Ox 98.3 F 119 H 18 151/72 100 08/25/18 05:20 08/25/18 09:35 08/25/18 05:20 08/25/18 09:35 08/25/18 05:20 Temperature -Last 24 Hours Temperature 98.3 F Temperature 98.3 F Temperature 102.4 F Temperature 102.1 F Temperature 98.3 F Temperature 98.0 F - Labs CBC & Chem 7: 08/25/18 00:26 08/25/18 00:26 Labs: Abnormal lab results 08/24/18 08/24/18 08/25/18 Range/Units 11:26 18:53 00:26 WBC 19.0 H (4.5-11.0) K/mm3 RBC 3.61 L (3.65-5.03) M/mm3 RDW 15.8 H (13.2-15.2) % Seg Neuts % (Manual) 89.0 H (40.0-70.0) % Lymphocytes % (Manual) 5.0 L (13.4-35.0) % Seg Neutrophils # Man 16.9 H (1.8-7.7) K/mm3 Lymphocytes # (Manual) 1.0 L (1.2-5.4) K/mm3 Monocytes # (Manual) 1.1 H (0.0-0.8) K/mm3 Potassium (3.6-5.0) mmol/L Glucose (65-100) mg/dL POC Glucose 356 H 246 H (70-105) Alkaline Phosphatase (35-129) units/L Albumin (3.9-5) g/dL 08/25/18 08/25/18 08/25/18 Range/Units 00:26 05:01 07:31 WBC (4.5-11.0) K/mm3 RBC (3.65-5.03) M/mm3 RDW (13.2-15.2) % Seg Neuts % (Manual) (40.0-70.0) % Lymphocytes % (Manual) (13.4-35.0) % Seg Neutrophils # Man (1.8-7.7) K/mm3 Lymphocytes # (Manual) (1.2-5.4) K/mm3 Monocytes # (Manual) (0.0-0.8) K/mm3 Potassium 3.1 L D (3.6-5.0) mmol/L Glucose 57 L (65-100) mg/dL POC Glucose 137 H 172 H (70-105) Alkaline Phosphatase 318 H (35-129) units/L Albumin 3.1 L (3.9-5) g/dL
[2018-08-25] MEDS: TYLENOL PO PRN ×2 (12:37→20:54)
[2018-08-25] MEDS: LEVAQUIN 750MG/150ML 750 MG/150 ML BAG IV SCH (13:18)
--- NOTE | 2018-08-25 15:05 | Progress Note ---
Assessment and Plan Assessment and plan: 53-year-old woman with history of hypertension and diabetes Who presents to the hospital with fever and dysuria and suprapubic pain. Sepsis/UTI/gram-negative bacteremia due to ecoli Continue antibiotics, ID consult reviewed Type 2 diabetes with persistent hyperglycemia, A1c 13.5 optimized insulins, counseled on improved adherence, she is self pay, therefore using 70/30 given its lower cost Hypertension with hypertensive urgency Optimize blood pressure medications Nonadherence to medications Patient has been counseled on preventative health 17 minutes DVT prophylaxis Lovenox History Interval history: Review of systems Constitutional: She admits to having low-grade fever CVS: No chest pain, no orthopnea, no dyspnea on exertion, no pedal edema GI: Suprapubic pain and dysuria is improved, no diarrhea, no vomiting, no constipation Respiratory: no wheezing, no coughing Hospitalist Physical - Physical exam Narrative exam: General.: Appears well, no distress, nontoxic HEENT: Moist mucous membranes, extraocular muscles intact, no lymphadenopathy Neck: supple Cardiac: S1-S2 heard Lungs: clear to auscultation bilaterally Abdomen: soft , nontender, nondistended, bowel sounds positive Extremities: no edema clubbing or cyanosis Skin: no rash or lesions Neurologic: no gross focal deficits Psych: calm, and cooperative - Constitutional Vitals: Temp Pulse Resp BP Pulse Ox 100.0 F H 114 H 18 134/73 100 08/25/18 11:19 08/25/18 11:19 08/25/18 11:19 08/25/18 11:19 08/25/18 11:19 General appearance: Present: no acute distress, mild distress, well-nourished Results - Labs CBC & Chem 7: 08/27/18 22:24 08/27/18 22:24 Labs: Laboratory Last Values WBC 19.0 K/mm3 (4.5-11.0) H 08/25/18 00:26 RBC 3.61 M/mm3 (3.65-5.03) L 08/25/18 00:26 Hgb 10.3 gm/dl (10.1-14.3) 08/25/18 00:26 Hct 31.1 % (30.3-42.9) 08/25/18 00:26 MCV 86 fl (79-97) 08/25/18 00:26 MCH 29 pg (28-32) 08/25/18 00:26 MCHC 33 % (30-34) 08/25/18 00:26 RDW 15.8 % (13.2-15.2) H 08/25/18 00:26 Plt Count 327 K/mm3 (140-440) 08/25/18 00:26 Lymph % (Auto) 10.5 % (13.4-35.0) L 08/23/18 10:19 [place] % (Auto) 9.3 % (0.0-7.3) H 08/23/18 10:19 Eos % (Auto) 0.2 % (0.0-4.3) 08/23/18 10: Baso % (Auto) 0.3 % (0.0-1.8) 08/23/18 10: Lymph # 2.0 K/mm3 (1.2-5.4) 08/23/18 10: [place] # 1.8 K/mm3 (0.0-0.8) H 08/23/18 10: Eos # 0.0 K/mm3 (0.0-0.4) 08/23/18 10: Baso # 0.1 K/mm3 (0.0-0.1) 08/23/18 10:19 Add Manual Diff Complete 08/25/18 00:26 Total Counted 100 08/25/18 00:26 Seg Neutrophils % 79.7 % (40.0-70.0) H 08/23/18 10:19 Seg Neuts % (Manual) 89.0 % (40.0-70.0) H 08/25/18 00:26 0 % 08/25/18 00:26 5.0 % (13.4-35.0) L 08/25/18 00:26 Reactive Lymphs % (Man) 0 % 08/25/18 00:26 6.0 % (0.0-7.3) 08/25/18 00:26 0 % (0.0-4.3) 08/25/18 00:26 0 % (0.0-1.8) 08/25/18 00:26 0 % 08/25/18 00:26 0 % 08/25/18 00:26 0 % 08/25/18 00:26 0 % 08/25/18 00:26 Nucleated RBC % Not Reportable 08/25/18 00:26 Seg Neutrophils # 15.2 K/mm3 (1.8-7.7) H 08/23/18 10: Seg Neutrophils # Man 16.9 K/mm3 (1.8-7.7) H 08/25/18 00:26 Band Neutrophils # 0.0 K/mm3 08/25/18 00:26 1.0 K/mm3 (1.2-5.4) L 08/25/18 00:26 Abs React Lymphs (Man) 0.0 K/mm3 08/25/18 00:26 1.1 K/mm3 (0.0-0.8) H 08/25/18 00:26 0.0 K/mm3 (0.0-0.4) 08/25/18 00:26 0.0 K/mm3 (0.0-0.1) 08/25/18 00:26 0.0 K/mm3 08/25/18 00:26 0.0 K/mm3 08/25/18 00:26 0.0 K/mm3 08/25/18 00:26 Blast Cells # 0.0 K/mm3 08/25/18 00:26 WBC Morphology Not Reportable 08/25/18 00:26 Hypersegmented Neuts Not Reportable 08/25/18 00:26 Hyposegmented Neuts Not Reportable 08/25/18 00:26 Hypogranular Neuts Not Reportable 08/25/18 00:26 Not Reportable 08/25/18 00:26 Not Reportable 08/25/18 00:26 Not Reportable 08/25/18 00:26 Not Reportable 08/25/18 00:26 Not Reportable 08/25/18 00:26 Not Reportable 08/25/18 00:26 Consistent w auto 08/25/18 00:26 Not Reportable 08/25/18 00:26 Plt Clumps, EDTA Not Reportable 08/25/18 00:26 1+ 08/25/18 00:26 Not Reportable 08/25/18 00:26 Not Reportable 08/25/18 00:26 Plt Morphology Comment Not Reportable 08/25/18 00:26 RBC Morphology Not Reportable 08/25/18 00:26 Dimorphic RBCs Not Reportable 08/25/18 00:26 Not Reportable 08/25/18 00:26 1+ 08/25/18 00:26 1+ 08/25/18 00:26 1+ 08/25/18 00:26 Not Reportable 08/25/18 00:26 Not Reportable 08/25/18 00:26 Not Reportable 08/25/18 00:26 Not Reportable 08/25/18 00:26 Not Reportable 08/25/18 00:26 Not Reportable 08/25/18 00:26 Not Reportable 08/25/18 00:26 Not Reportable 08/25/18 00:26 Not Reportable 08/25/18 00:26 Not Reportable 08/25/18 00:26 Not Reportable 08/25/18 00:26 Not Reportable 08/25/18 00:26 Not Reportable 08/25/18 00:26 Not Reportable 08/25/18 00:26 Not Reportable 08/25/18 00:26 Acanthocytes (Spur) Not Reportable 08/25/18 00:26 Rouleaux Not Reportable 08/25/18 00:26 Not Reportable 08/25/18 00:26 Not Reportable 08/25/18 00:26 Not Reportable 08/25/18 00:26 Not Reportable 08/25/18 00:26 Hem Pathologist Commnt No 08/25/18 00:26 APTT 43.4 Sec. (24.2-36.6) H 08/21/18 15:50 Sodium 141 mmol/L (137-145) 08/25/18 00:26 Potassium 3.1 mmol/L (3.6-5.0) L D 08/25/18 00:26 Chloride 101.1 mmol/L (98-107) 08/25/18 00:26 Carbon Dioxide 27 mmol/L (22-30) D 08/25/18 00:26 16 mmol/L 08/25/18 00:26 BUN 12 mg/dL (7-17) 08/25/18 00:26 1.2 mg/dL (0.7-1.2) 08/25/18 00:26 Estimated GFR 57 ml/min 08/25/18 00:26 10 % 08/25/18 00:26 Glucose 57 mg/dL (65-100) L 08/25/18 00:26 POC Glucose 185 (70-105) H 08/25/18 11:37 13.0 % (4-6) H 08/21/18 20:26 Lactic Acid 1.80 mmol/L (0.7-2.0) 08/21/18 20:26 Calcium 9.7 mg/dL (8.4-10.2) 08/25/18 00:26 0.50 mg/dL (0.1-1.2) 08/25/18 00:26 AST 27 units/L (5-40) 08/25/18 00:26 ALT 28 units/L (7-56) 08/25/18 00:26 318 units/L (35-129) H 08/25/18 00:26 < 0.010 ng/mL (0.00-0.029) 08/21/18 15:50 8.2 g/dL (6.3-8.2) 08/25/18 00:26 3.1 g/dL (3.9-5) L 08/25/18 00:26 0.6 % 08/25/18 00:26 Yellow (Yellow) 08/21/18 15:50 Slightly-cloudy (Clear) 08/21/18 15:50 6.0 (5.0-7.0) 08/21/18 15:50 Ur Specific [place] 1.009 (1.003-1.030) 08/21/18 15:50 100 mg/dl mg/dL (Negative) 08/21/18 15:50 >=500 mg/dL (Negative) 08/21/18 15:50 Neg mg/dL (Negative) 08/21/18 15:50 Sm (Negative) 08/21/18 15:50 Neg (Negative) 08/21/18 15:50 Neg (Negative) 08/21/18 15:50 < 2.0 mg/dL (<2.0) 08/21/18 15:50 Ur Leukocyte Esterase Lg (Negative) 08/21/18 15:50 > 182.0 /HPF (0.0-6.0) H 08/21/18 15:50 3.0 /HPF (0.0-6.0) 08/21/18 15:50 U Epithel Cells (Auto) 2.0 /HPF (0-13.0) 08/21/18 15:50 1+ /HPF (Negative) 08/21/18 15:50 Few /HPF 08/21/18 15:50 Blood Type O POSITIVE 08/21/18 16:20 Antibody Screen Negative 08/21/18 16:20 Active Medications - Current Medications Current Medications: Generic Name Dose Route Start Last Admin Trade Name Freq PRN Reason Stop Dose Admin Acetaminophen 650 mg 08/21/18 20:13 08/25/18 12:37 Tylenol PO 650 mg Q4H PRN Administration Pain MILD(1-3)/Fever >100.5/CINTRON Aspirin 81 mg 08/21/18 20:00 08/25/18 09:27 Baby Aspirin PO 81 mg QDAY MARIA ESTHER Administration Docusate Sodium 100 mg 08/22/18 23:45 08/25/18 09:27 Colace PO 100 mg BID MARIA ESTHER Administration Enoxaparin Sodium 40 mg 08/21/18 19:00 08/25/18 09:27 Lovenox SUB-Q 40 mg QDAY MARIA ESTHER Administration Famotidine 20 mg 08/25/18 22:00 Pepcid PO BID MARIA ESTHER Hydralazine HCl 10 mg 08/21/18 19:57 08/24/18 17:23 Apresoline IV 10 mg Q3H PRN Administration Blood Pressure Hydromorphone HCl 0.5 mg 08/21/18 20:13 Dilaudid IV Q3H PRN Pain , Severe (7-10) Levofloxacin/Dextrose 750 mg in 150 mls @ 100 mls/hr 08/25/18 13:00 08/25/18 13:18 Levaquin 750mg/150ml IV 100 mls/hr Q24HR MARIA ESTHER Administration Protocol Insulin Human Isoph/Insulin Regular 22 unit 08/24/18 18:29 08/25/18 09:28 Humulin 70/30 SUB-Q 22 unit BIDDIAB MARIA ESTHER Administration Insulin Human Lispro 0 unit 08/21/18 22:00 08/25/18 13:18 Humalog SUB-Q 2 unit ACHS MARIA ESTHER Administration Protocol Lisinopril 40 mg 08/23/18 10:00 08/25/18 09:35 Zestril PO 40 mg QDAY MARIA ESTHER Administration Metoclopramide HCl 10 mg 08/21/18 20:13 Reglan IV Q6H PRN Nausea And Vomiting Nifedipine 60 mg 08/24/18 22:00 08/25/18 09:28 Procardia Xl PO 60 mg Q12HR MARIA ESTHER Administration Ondansetron HCl 4 mg 08/21/18 20:13 Zofran IV Q8H PRN Nausea And Vomiting Oxycodone/Acetaminophen 1 tab 08/21/18 20:13 Percocet 5/325 PO Q6H PRN Pain, Moderate (4-6) Polyethylene Glycol 17 gm 08/22/18 23:19 08/23/18 13:43 Miralax 3350 PO 17 gm QDAY PRN Administration Constipation Pravastatin Sodium 20 mg 08/21/18 22:00 08/25/18 09:36 Pravachol PO 20 mg QDAY MARIA ESTHER Administration Sodium Chloride 10 ml 08/21/18 22:00 08/25/18 09:29 Sodium Chloride Flush Syringe 10 Ml IV 10 ml BID MARIA ESTHER Administration Sodium Chloride 10 ml 08/21/18 20:13 Sodium Chloride Flush Syringe 10 Ml IV PRN PRN LINE FLUSH
--- NOTE | 2018-08-25 16:22 | Cat Scan Report ---
CT ABDOMEN AND PELVIS WITH CONTRAST HISTORY: E.coli. Persistent fever. renal abscess.. Fever of unknown origin. COMPARISON: None. TECHNIQUE: Axial CT images were obtained through the abdomen and pelvis after 100 cc of Omnipaque 300 intravenously. Sagittal and coronal reformatted images. All CT scans at this location are performed using CT dose reduction for ALARA by means of automated exposure control. FINDINGS: CT ABDOMEN: Lung Bases: Clear. Liver: No significant abnormality. Biliary: No significant abnormality. Spleen: No significant abnormality. Unenlarged. Pancreas: No significant abnormality. Adrenals: No significant abnormality. Kidneys: Multiple bilateral renal cysts are identified. The largest cyst measures 11 cm in the inferi or left kidney. The ureters and bladder are unremarkable. Lymphatics: No lymphadenopathy. Vasculature: Mild diffuse aortic calcifications are noted. No aneurysm. Moderate stenosis is suggeste d in the right common iliac artery. Bowel/Peritoneum: No significant abnormality. No free air. No free fluid. Normal appendix CT PELVIS: : No significant abnormality. Osseous Structures: No significant abnormality. Additional Findings: None IMPRESSION: No acute process is identified. Bilateral renal cysts. Signer Name: Alejandro Godwin Jr, MD Signed: 08/25/2018 4:18 PM Workstation Name: [id number]
[2018-08-25] MEDS: PEPCID PO SCH ×2 (20:54→22:00)
[2018-08-26] MEDS: HumaLOG SUB-Q SCH ×5 (03:10→22:00)
[2018-08-26] MEDS: TYLENOL PO PRN ×2 (07:02→20:58)
--- NOTE | 2018-08-26 09:06 | Progress Note ---
Assessment and Plan Assessment and plan: 53-year-old woman with history of hypertension and diabetes Who presents to the hospital with fever and dysuria and suprapubic pain. Sepsis/UTI/gram-negative bacteremia due to ecoli Continue antibiotics, ID consult reviewed Type 2 diabetes with persistent hyperglycemia, A1c 13.5 optimized insulins, counseled on improved adherence, she is self pay, therefore using 70/30 given its lower cost Hypertension with hypertensive urgency Optimize blood pressure medications Nonadherence to medications Patient has been counseled on preventative health 17 minutes hypokalemia repleted DVT prophylaxis Lovenox History Interval history: Review of systems Constitutional: She admits to having low-grade fever CVS: No chest pain, no orthopnea, no dyspnea on exertion, no pedal edema GI: Suprapubic pain and dysuria is improved, no diarrhea, no vomiting, no constipation Respiratory: no wheezing, no coughing Hospitalist Physical - Physical exam Narrative exam: General.: Appears well, no distress, nontoxic HEENT: Moist mucous membranes, extraocular muscles intact, no lymphadenopathy Neck: supple Cardiac: S1-S2 heard Lungs: clear to auscultation bilaterally Abdomen: soft , nontender, nondistended, bowel sounds positive Extremities: no edema clubbing or cyanosis Skin: no rash or lesions Neurologic: no gross focal deficits Psych: calm, and cooperative - Constitutional Vitals: Temp Pulse Resp BP Pulse Ox 98.7 F 119 H 20 143/76 99 08/26/18 09:05 08/26/18 06:34 08/26/18 06:34 08/26/18 06:34 08/26/18 06:34 General appearance: Present: no acute distress, mild distress, well-nourished Results - Labs CBC & Chem 7: 08/27/18 22:24 08/27/18 22:24 Labs: Laboratory Last Values WBC 19.0 K/mm3 (4.5-11.0) H 08/25/18 00:26 RBC 3.61 M/mm3 (3.65-5.03) L 08/25/18 00:26 Hgb 10.3 gm/dl (10.1-14.3) 08/25/18 00:26 Hct 31.1 % (30.3-42.9) 08/25/18 00:26 MCV 86 fl (79-97) 08/25/18 00:26 MCH 29 pg (28-32) 08/25/18 00:26 MCHC 33 % (30-34) 08/25/18 00:26 RDW 15.8 % (13.2-15.2) H 08/25/18 00:26 Plt Count 327 K/mm3 (140-440) 08/25/18 00:26 Lymph % (Auto) 10.5 % (13.4-35.0) L 08/23/18 10:19 [place] % (Auto) 9.3 % (0.0-7.3) H 08/23/18 10:19 Eos % (Auto) 0.2 % (0.0-4.3) 08/23/18 10: Baso % (Auto) 0.3 % (0.0-1.8) 08/23/18 10: Lymph # 2.0 K/mm3 (1.2-5.4) 08/23/18 10: [place] # 1.8 K/mm3 (0.0-0.8) H 08/23/18 10: Eos # 0.0 K/mm3 (0.0-0.4) 08/23/18 10: Baso # 0.1 K/mm3 (0.0-0.1) 08/23/18 10: Add Manual Diff Complete 08/25/18 00:26 Total Counted 100 08/25/18 00:26 Seg Neutrophils % 79.7 % (40.0-70.0) H 08/23/18 10:19 Seg Neuts % (Manual) 89.0 % (40.0-70.0) H 08/25/18 00:26 0 % 08/25/18 00:26 5.0 % (13.4-35.0) L 08/25/18 00:26 Reactive Lymphs % (Man) 0 % 08/25/18 00:26 6.0 % (0.0-7.3) 08/25/18 00:26 0 % (0.0-4.3) 08/25/18 00:26 0 % (0.0-1.8) 08/25/18 00:26 0 % 08/25/18 00:26 0 % 08/25/18 00:26 0 % 08/25/18 00:26 0 % 08/25/18 00:26 Nucleated RBC % Not Reportable 08/25/18 00:26 Seg Neutrophils # 15.2 K/mm3 (1.8-7.7) H 08/23/18 10:19 Seg Neutrophils # Man 16.9 K/mm3 (1.8-7.7) H 08/25/18 00:26 Band Neutrophils # 0.0 K/mm3 08/25/18 00:26 1.0 K/mm3 (1.2-5.4) L 08/25/18 00:26 Abs React Lymphs (Man) 0.0 K/mm3 08/25/18 00:26 1.1 K/mm3 (0.0-0.8) H 08/25/18 00:26 0.0 K/mm3 (0.0-0.4) 08/25/18 00:26 0.0 K/mm3 (0.0-0.1) 08/25/18 00:26 0.0 K/mm3 08/25/18 00:26 0.0 K/mm3 08/25/18 00:26 0.0 K/mm3 08/25/18 00:26 Blast Cells # 0.0 K/mm3 08/25/18 00:26 WBC Morphology Not Reportable 08/25/18 00:26 Hypersegmented Neuts Not Reportable 08/25/18 00:26 Hyposegmented Neuts Not Reportable 08/25/18 00:26 Hypogranular Neuts Not Reportable 08/25/18 00:26 Not Reportable 08/25/18 00:26 Not Reportable 08/25/18 00:26 Not Reportable 08/25/18 00:26 Not Reportable 08/25/18 00:26 Not Reportable 08/25/18 00:26 Not Reportable 08/25/18 00:26 Consistent w auto 08/25/18 00:26 Not Reportable 08/25/18 00:26 Plt Clumps, EDTA Not Reportable 08/25/18 00:26 1+ 08/25/18 00:26 Not Reportable 08/25/18 00:26 Not Reportable 08/25/18 00:26 Plt Morphology Comment Not Reportable 08/25/18 00:26 RBC Morphology Not Reportable 08/25/18 00:26 Dimorphic RBCs Not Reportable 08/25/18 00:26 Not Reportable 08/25/18 00:26 1+ 08/25/18 00:26 1+ 08/25/18 00:26 1+ 08/25/18 00:26 Not Reportable 08/25/18 00:26 Not Reportable 08/25/18 00:26 Not Reportable 08/25/18 00:26 Not Reportable 08/25/18 00:26 Not Reportable 08/25/18 00:26 Not Reportable 08/25/18 00:26 Not Reportable 08/25/18 00:26 Not Reportable 08/25/18 00:26 Not Reportable 08/25/18 00:26 Not Reportable 08/25/18 00:26 Not Reportable 08/25/18 00:26 Not Reportable 08/25/18 00:26 Not Reportable 08/25/18 00:26 Not Reportable 08/25/18 00:26 Not Reportable 08/25/18 00:26 Acanthocytes (Spur) Not Reportable 08/25/18 00:26 Rouleaux Not Reportable 08/25/18 00:26 Not Reportable 08/25/18 00:26 Not Reportable 08/25/18 00:26 Not Reportable 08/25/18 00:26 Not Reportable 08/25/18 00:26 Hem Pathologist Commnt No 08/25/18 00:26 APTT 43.4 Sec. (24.2-36.6) H 08/21/18 15:50 Sodium 141 mmol/L (137-145) 08/25/18 00:26 Potassium 3.1 mmol/L (3.6-5.0) L D 08/25/18 00:26 Chloride 101.1 mmol/L (98-107) 08/25/18 00:26 Carbon Dioxide 27 mmol/L (22-30) D 08/25/18 00:26 16 mmol/L 08/25/18 00:26 BUN 12 mg/dL (7-17) 08/25/18 00:26 1.2 mg/dL (0.7-1.2) 08/25/18 00:26 Estimated GFR 57 ml/min 08/25/18 00:26 10 % 08/25/18 00:26 Glucose 57 mg/dL (65-100) L 08/25/18 00:26 POC Glucose 96 (70-105) 08/26/18 03:14 13.0 % (4-6) H 08/21/18 20:26 Lactic Acid 1.80 mmol/L (0.7-2.0) 08/21/18 20:26 Calcium 9.7 mg/dL (8.4-10.2) 08/25/18 00:26 0.50 mg/dL (0.1-1.2) 08/25/18 00:26 AST 27 units/L (5-40) 08/25/18 00:26 ALT 28 units/L (7-56) 08/25/18 00:26 318 units/L (35-129) H 08/25/18 00:26 < 0.010 ng/mL (0.00-0.029) 08/21/18 15:50 8.2 g/dL (6.3-8.2) 08/25/18 00:26 3.1 g/dL (3.9-5) L 08/25/18 00:26 0.6 % 08/25/18 00:26 Yellow (Yellow) 08/21/18 15:50 Slightly-cloudy (Clear) 08/21/18 15:50 6.0 (5.0-7.0) 08/21/18 15:50 Ur Specific [place] 1.009 (1.003-1.030) 08/21/18 15:50 100 mg/dl mg/dL (Negative) 08/21/18 15:50 >=500 mg/dL (Negative) 08/21/18 15:50 Neg mg/dL (Negative) 08/21/18 15:50 Sm (Negative) 08/21/18 15:50 Neg (Negative) 08/21/18 15:50 Neg (Negative) 08/21/18 15:50 < 2.0 mg/dL (<2.0) 08/21/18 15:50 Ur Leukocyte Esterase Lg (Negative) 08/21/18 15:50 > 182.0 /HPF (0.0-6.0) H 08/21/18 15:50 3.0 /HPF (0.0-6.0) 08/21/18 15:50 U Epithel Cells (Auto) 2.0 /HPF (0-13.0) 08/21/18 15:50 1+ /HPF (Negative) 08/21/18 15:50 Few /HPF 08/21/18 15:50 Blood Type O POSITIVE 08/21/18 16:20 Antibody Screen Negative 08/21/18 16:20 Active Medications - Current Medications Current Medications: Generic Name Dose Route Start Last Admin Trade Name Freq PRN Reason Stop Dose Admin Acetaminophen 650 mg 08/21/18 20:13 08/26/18 07:02 Tylenol PO 650 mg Q4H PRN Administration Pain MILD(1-3)/Fever >100.5/CINTRON Aspirin 81 mg 08/21/18 20:00 08/25/18 09:27 Baby Aspirin PO 81 mg QDAY MARIA ESTHER Administration Docusate Sodium 100 mg 08/22/18 23:45 08/25/18 22:00 Colace PO Not Given BID MARIA ESTHER Enoxaparin Sodium 40 mg 08/21/18 19:00 08/25/18 09:27 Lovenox SUB-Q 40 mg QDAY MARIA ESTHER Administration Famotidine 20 mg 08/25/18 22:00 08/25/18 22:00 Pepcid PO Not Given BID MARIA ESTHER Hydralazine HCl 10 mg 08/21/18 19:57 08/24/18 17:23 Apresoline IV 10 mg Q3H PRN Administration Blood Pressure Hydromorphone HCl 0.5 mg 08/21/18 20:13 Dilaudid IV Q3H PRN Pain , Severe (7-10) Levofloxacin/Dextrose 750 mg in 150 mls @ 100 mls/hr 08/25/18 13:00 08/25/18 13:18 Levaquin 750mg/150ml IV 100 mls/hr Q24HR MARIA ESTHER Administration Protocol Insulin Human Isoph/Insulin Regular 22 unit 08/24/18 18:29 08/25/18 17:54 Humulin 70/30 SUB-Q 22 unit BIDDIAB MARIA ESTHER Administration Insulin Human Lispro 0 unit 08/21/18 22:00 08/26/18 03:10 Humalog SUB-Q Not Given ACHS [facility] Protocol Lisinopril 40 mg 08/23/18 10:00 08/25/18 09:35 Zestril PO 40 mg QDAY MARIA ESTHER Administration Metoclopramide HCl 10 mg 08/21/18 20:13 Reglan IV Q6H PRN Nausea And Vomiting Nifedipine 60 mg 08/24/18 22:00 08/25/18 22:00 Procardia Xl PO Not Given Q12HR MARIA ESTHER Ondansetron HCl 4 mg 08/21/18 20:13 Zofran IV Q8H PRN Nausea And Vomiting Oxycodone/Acetaminophen 1 tab 08/21/18 20:13 Percocet 5/325 PO Q6H PRN Pain, Moderate (4-6) Polyethylene Glycol 17 gm 08/22/18 23:19 08/23/18 13:43 Miralax 3350 PO 17 gm QDAY PRN Administration Constipation Pravastatin Sodium 20 mg 08/21/18 22:00 08/25/18 09:36 Pravachol PO 20 mg QDAY MARIA ESTHER Administration Sodium Chloride 10 ml 08/21/18 22:00 08/25/18 22:00 Sodium Chloride Flush Syringe 10 Ml IV Not Given BID MARIA ESTHER Sodium Chloride 10 ml 08/21/18 20:13 Sodium Chloride Flush Syringe 10 Ml IV PRN PRN LINE FLUSH
--- NOTE | 2018-08-26 10:18 | Progress Note ---
Assessment and Plan Cultures: 08/21/18 Blood: MDR E. coli, susceptible to all cephalosporins and fluoroquinolones 08/21/18: Urine: MDR E. coli, susceptible to all cephalosprins and fluoroquinolones 08/25/18 Blood: no growth to date 53-year-old female with a past medical history of diabetes and hypertension that presents to the ED on 08/21/18 with complaints of fever, tachycardia, generalized weakness, dizziness, dysuria and suprapubic discomfort for the past 2 days with accompanying fever and chills. Patient reports subjective fever at home of 101.5. and elevated blood sugars in the range of 300-400. Admitted with: 1. Sepsis on admission.; Fever spikes continuing . Etiology most likely UTI. U/A consistent with UTI. Urine culture in progress. Blood culture GNR. CXR no consolidation. Currently being treated with ceftriaxone. 2. E.coli Bacteremia: Blood cultures grew MDR E. coli. Source UTI. Novel type of E.coli strain .(R to Zosyn but S to all cephalosporins and fluoroquinolones). Continue Levofloaxacin. Add meropenem and monitor for response. 3. UTI: U/A with Pyuria , WBC >182, Large LE. Urine culture grew MDR E. coli, suceptible to ceftriaxone. Renal US shows nonspecific renal parenchymal disease. Few right renal cysts. CT of abdomen/pelvis show multiple bilateral renal cysts. The largest cyst measures 11 cm in the inferior left kidney. 4. Uncontrolled Diabetes Type 2: recommend tight gylcemic control 5. Transaminitis: RUQ ultrasound found no significant abnormality. 6. ROD: keep antibiotics renally dosed. Monitor creatinine. Recommendations: Continue Lervofloxacin 750mg every 24 hours, D2 Add IV meropenem 1 gm q 8, monitor for response. -follow-up repeat blood cultures -CBC ordered for tomorrow [facility] M: [phone] O:[phone] Subjective Date of service: 08/26/18 Interval history: Patient seen and examined. Reports no generalized pain or weakness. Fevers continuing. Objective - Exam Narrative Exam: Constitutional: Alert, cooperative. no acute distress Head, Ears, Nose: Normocephalic, atraumatic. External ears, nose normal Eyes: Conjunctivae/corneas clear. No icterus. No ptosis. Neck: Supple, no meningeal signs Oral: dentition fair. No thrush. Cardiovascular: S1, S2 normal. Respiratory: Good air entry, clear to auscultation bilaterally GI: Soft, non-tender; bowel sounds normal. No peritoneal signs, No RUQ pain. : No suprapubiic pain or CVA tenderness Musculoskeletal: No pedal edema, no cyanosis. Skin: No rash or abscess. Hem/Lymphatic: No palpable cervical or supraclavicular nodes. No lymphangitis Psych: Mood Good.. Affect normal Neurological: Awake, alert, oriented. - Constitutional Vitals: Vital Signs Temp Pulse Resp BP Pulse Ox 98.7 F 119 H 20 143/76 99 08/26/18 09:05 08/26/18 06:34 08/26/18 06:34 08/26/18 06:34 08/26/18 06:34 Temperature -Last 24 Hours Temperature 98.7 F Temperature 101.3 F Temperature 99.3 F Temperature 100.8 F Temperature 98.6 F Temperature 100.0 F - Labs CBC & Chem 7: 08/25/18 00:26 08/25/18 00:26 Labs: Abnormal lab results 08/25/18 08/26/18 Range/Units 11:37 10:21 POC Glucose 185 H 214 H (70-105)
[2018-08-26] MEDS: PRAVACHOL PO SCH (10:32)
[2018-08-26] MEDS: COLACE PO SCH ×3 (10:32→22:00)
[2018-08-26] MEDS: BABY ASPIRIN PO SCH (10:32)
[2018-08-26] MEDS: ZESTRIL PO SCH (10:32)
[2018-08-26] MEDS: LOVENOX SUB-Q SCH (10:32)
[2018-08-26] MEDS: PROCARDIA XL PO SCH ×3 (10:32→22:00)
[2018-08-26] MEDS: LEVAQUIN 750MG/150ML 750 MG/150 ML BAG IV SCH (10:33)
[2018-08-26] MEDS: SODIUM CHLORIDE FLUSH SYRINGE 10 ML IV SCH ×2 (10:33→20:59)
[2018-08-26] MEDS: PEPCID PO SCH ×3 (10:38→22:00)
[2018-08-26] MEDS: MERREM 1,000 MG in NACL 0.9% 100 ML IV SCH ×2 (15:54→20:59)
[2018-08-27 01:58] LABS: Basophils # (Auto) 0.1 K/mm3 (0.0-0.1); Basophils % (Auto) 0.5 % (0.0-1.8); Eosinophils % (Auto) 0.2 % (0.0-4.3); Hematocrit 27.3 % (30.3-42.9); Hemoglobin 9.1 gm/dl (10.1-14.3); Lymphocytes # (Auto) 2.2 K/mm3 (1.2-5.4); Lymphocytes % (Auto) 14.3 % (13.4-35.0); Mean Corpuscular HGB Conc 33 % (30-34); Mean Corpuscular Volume 86 fl (79-97); Monocytes # (Auto) 1.7 K/mm3 (0.0-0.8); Monocytes % (Auto) 11.1 % (0.0-7.3); Platelet Count 320 K/mm3 (140-440); Red Blood Count 3.17 M/mm3 (3.65-5.03); Red Cell Distribution Width 16.3 % (13.2-15.2)
[2018-08-27] MEDS: MERREM 1,000 MG in NACL 0.9% 100 ML IV SCH ×3 (06:40→21:18)
[2018-08-27] MEDS: PRAVACHOL PO SCH (09:50)
[2018-08-27] MEDS: LOVENOX SUB-Q SCH (09:50)
[2018-08-27] MEDS: PROCARDIA XL PO SCH ×2 (09:50→21:19)
[2018-08-27] MEDS: LEVAQUIN 750MG/150ML 750 MG/150 ML BAG IV SCH (09:50)
[2018-08-27] MEDS: COLACE PO SCH ×2 (09:50→21:19)
[2018-08-27] MEDS: BABY ASPIRIN PO SCH (09:50)
[2018-08-27] MEDS: ZESTRIL PO SCH (09:50)
[2018-08-27] MEDS: PEPCID PO SCH ×2 (09:50→21:19)
[2018-08-27] MEDS: HumaLOG SUB-Q SCH ×4 (09:51→23:47)
--- NOTE | 2018-08-27 11:01 | Progress Note ---
Assessment and Plan Cultures: 08/21/18 Blood: MDR E. coli, susceptible to all cephalosporins and fluoroquinolones 08/21/18: Urine: MDR E. coli, susceptible to all cephalosprins and fluoroquinolones 08/25/18 Blood: no growth 53-year-old female with a past medical history of diabetes and hypertension that presents to the ED on 08/21/18 with complaints of fever, tachycardia, generalized weakness, dizziness, dysuria and suprapubic discomfort for the past 2 days with accompanying fever and chills. Patient reports subjective fever at home of 101.5. and elevated blood sugars in the range of 300-400. Admitted with: 1. Sepsis on admission.; Improving. low grade fever noted 100.4. Etiology most likely UTI. U/A consistent with UTI. Urine culture in progress. Blood culture GNR. CXR no consolidation. Currently being treated with ceftriaxone. 2. E.coli Bacteremia: Blood cultures grew MDR E. coli. Source UTI. Novel type of E.coli strain .(R to Zosyn but S to all cephalosporins and fluoroquinolones). Repeat blood cultures show no growth. Continue Meropenem. When Afebrile for 48 hours, anticipate discharge on Ciprofloxacin 500mg PO for 7 days. 3. UTI: U/A with Pyuria , WBC >182, Large LE. Urine culture grew MDR E. coli, suceptible to ceftriaxone. Renal US shows nonspecific renal parenchymal d isease. Few right renal cysts. CT of abdomen/pelvis show multiple bilateral renal cysts. The largest cyst measures 11 cm in the inferior left kidney. 4. Uncontrolled Diabetes Type 2: recommend tight gylcemic control 5. Transaminitis: RUQ ultrasound found no significant abnormality. 6. ROD: Improved. Monitor creatinine. Recommendations: -Disocntinued Lervofloxacin - Continue IV meropenem 1 gm q 8, D2 -follow-up repeat blood cultures -When Afebrile for 48 hours, anticipate discharge on Ciprofloxacin 500mg PO for 7 days . -Follow up ID clinic in 2 weeks ( sent to [facility]) Dr. Ku will be recreation supervisor this weekend, , please call for questions. [facility] M: [phone] O:[phone] Subjective Date of service: 08/27/18 Interval history: Patient seen and examined. Reports no generalized pain or weakness. no Fevers. Objective - Exam Narrative Exam: Constitutional: Alert, cooperative. no acute distress Head, Ears, Nose: Normocephalic, atraumatic. External ears, nose normal Eyes: Conjunctivae/corneas clear. No icterus. No ptosis. Neck: Supple, no meningeal signs Oral: dentition fair. No thrush. Cardiovascular: S1, S2 normal. Respiratory: Good air entry, clear to auscultation bilaterally GI: Soft, non-tender; bowel sounds normal. No peritoneal signs, No RUQ pain. : No suprapubiic pain or CVA tenderness Musculoskeletal: No pedal edema, no cyanosis. Skin: No rash or abscess. Hem/Lymphatic: No palpable cervical or supraclavicular nodes. No lymphangitis Psych: Mood Good.. Affect normal Neurological: Awake, alert, oriented. - Constitutional Vitals: Vital Signs Temp Pulse Resp BP Pulse Ox 98.4 F 103 H 20 140/79 99 08/27/18 05:42 08/27/18 05:42 08/27/18 05:42 08/27/18 05:42 08/27/18 05:42 Temperature -Last 24 Hours Temperature 98.4 F Temperature 98.4 F Temperature 100.4 F Temperature 98.4 F Temperature 98.3 F - Labs CBC & Chem 7: 08/27/18 01:35 08/25/18 00:26 Labs: Abnormal lab results 08/27/18 08/27/18 08/27/18 Range/Units 00:50 01:35 07:58 WBC 15.5 H (4.5-11.0) K/mm3 RBC 3.17 L (3.65-5.03) M/mm3 Hgb 9.1 L (10.1-14.3) gm/dl Hct 27.3 L (30.3-42.9) % RDW 16.3 H (13.2-15.2) % [place] % (Auto) 11.1 H (0.0-7.3) % [place] # 1.7 H (0.0-0.8) K/mm3 Seg Neutrophils % 73.9 H (40.0-70.0) % Seg Neutrophils # 11.4 H (1.8-7.7) K/mm3 POC Glucose 196 H 181 H (70-105)
[2018-08-27] MEDS: SODIUM CHLORIDE FLUSH SYRINGE 10 ML IV SCH ×2 (11:47→21:19)
[2018-08-27] MEDS: MIRALAX 3350 PO PRN (12:59)
--- NOTE | 2018-08-27 15:45 | Progress Note ---
Assessment and Plan Assessment and plan: 53-year-old woman with history of hypertension and diabetes Who presents to the hospital with fever and dysuria and suprapubic pain. Sepsis/UTI/gram-negative bacteremia due to ecoli Continue antibiotics, ID consult reviewed CT a/p reviewed, no acute findings Type 2 diabetes with persistent hyperglycemia, A1c 13.5 optimized insulins, counseled on improved adherence, she is self pay, therefore using 70/30 given its lower cost Hypertension with hypertensive urgency Optimize blood pressure medications Nonadherence to medications Patient has been counseled on preventative health 17 minutes hypokalemia repleted DVT prophylaxis Lovenox History Interval history: Review of systems Constitutional: She admits to having low-grade fever CVS: No chest pain, no orthopnea, no dyspnea on exertion, no pedal edema GI: Suprapubic pain and dysuria is improved, no diarrhea, no vomiting, no constipation Respiratory: no wheezing, no coughing Hospitalist Physical - Physical exam Narrative exam: General.: Appears well, no distress, nontoxic HEENT: Moist mucous membranes, extraocular muscles intact, no lymphadenopathy Neck: supple Cardiac: S1-S2 heard Lungs: clear to auscultation bilaterally Abdomen: soft , nontender, nondistended, bowel sounds positive Extremities: no edema clubbing or cyanosis Skin: no rash or lesions Neurologic: no gross focal deficits Psych: calm, and cooperative - Constitutional Vitals: Temp Pulse Resp BP Pulse Ox 97.8 F 101 H 16 120/77 97 08/27/18 12:01 08/27/18 12:01 08/27/18 12:01 08/27/18 12:01 08/27/18 12:01 General appearance: Present: no acute distress, mild distress, well-nourished Results - Labs CBC & Chem 7: 08/27/18 22:24 08/27/18 22:24 Labs: Laboratory Last Values WBC 15.5 K/mm3 (4.5-11.0) H 08/27/18 01:35 RBC 3.17 M/mm3 (3.65-5.03) L 08/27/18 01:35 Hgb 9.1 gm/dl (10.1-14.3) L 08/27/18 01:35 Hct 27.3 % (30.3-42.9) L 08/27/18 01:35 MCV 86 fl (79-97) 08/27/18 01:35 MCH 29 pg (28-32) 08/27/18 01:35 MCHC 33 % (30-34) 08/27/18 01:35 RDW 16.3 % (13.2-15.2) H 08/27/18 01:35 Plt Count 320 K/mm3 (140-440) 08/27/18 01:35 Lymph % (Auto) 14.3 % (13.4-35.0) 08/27/18 01:35 [place] % (Auto) 11.1 % (0.0-7.3) H 08/27/18 01:35 Eos % (Auto) 0.2 % (0.0-4.3) 08/27/18 01:35 Baso % (Auto) 0.5 % (0.0-1.8) 08/27/18 01:35 Lymph # 2.2 K/mm3 (1.2-5.4) 08/27/18 01:35 [place] # 1.7 K/mm3 (0.0-0.8) H 08/27/18 01:35 Eos # 0.0 K/mm3 (0.0-0.4) 08/27/18 01:35 Baso # 0.1 K/mm3 (0.0-0.1) 08/27/18 01:35 Add Manual Diff Complete 08/25/18 00:26 Total Counted 100 08/25/18 00:26 Seg Neutrophils % 73.9 % (40.0-70.0) H 08/27/18 01:35 Seg Neuts % (Manual) 89.0 % (40.0-70.0) H 08/25/18 00:26 0 % 08/25/18 00:26 5.0 % (13.4-35.0) L 08/25/18 00:26 Reactive Lymphs % (Man) 0 % 08/25/18 00:26 6.0 % (0.0-7.3) 08/25/18 00:26 0 % (0.0-4.3) 08/25/18 00:26 0 % (0.0-1.8) 08/25/18 00:26 0 % 08/25/18 00:26 0 % 08/25/18 00:26 0 % 08/25/18 00:26 0 % 08/25/18 00:26 Nucleated RBC % Not Reportable 08/25/18 00:26 Seg Neutrophils # 11.4 K/mm3 (1.8-7.7) H 08/27/18 01:35 Seg Neutrophils # Man 16.9 K/mm3 (1.8-7.7) H 08/25/18 00:26 Band Neutrophils # 0.0 K/mm3 08/25/18 00:26 1.0 K/mm3 (1.2-5.4) L 08/25/18 00:26 Abs React Lymphs (Man) 0.0 K/mm3 08/25/18 00:26 1.1 K/mm3 (0.0-0.8) H 08/25/18 00:26 0.0 K/mm3 (0.0-0.4) 08/25/18 00:26 0.0 K/mm3 (0.0-0.1) 08/25/18 00:26 0.0 K/mm3 08/25/18 00:26 0.0 K/mm3 08/25/18 00:26 0.0 K/mm3 08/25/18 00:26 Blast Cells # 0.0 K/mm3 08/25/18 00:26 WBC Morphology Not Reportable 08/25/18 00:26 Hypersegmented Neuts Not Reportable 08/25/18 00:26 Hyposegmented Neuts Not Reportable 08/25/18 00:26 Hypogranular Neuts Not Reportable 08/25/18 00:26 Not Reportable 08/25/18 00:26 Not Reportable 08/25/18 00:26 Not Reportable 08/25/18 00:26 Not Reportable 08/25/18 00:26 Not Reportable 08/25/18 00:26 Not Reportable 08/25/18 00:26 Consistent w auto 08/25/18 00:26 Not Reportable 08/25/18 00:26 Plt Clumps, EDTA Not Reportable 08/25/18 00:26 1+ 08/25/18 00:26 Not Reportable 08/25/18 00:26 Not Reportable 08/25/18 00:26 Plt Morphology Comment Not Reportable 08/25/18 00:26 RBC Morphology Not Reportable 08/25/18 00:26 Dimorphic RBCs Not Reportable 08/25/18 00:26 Not Reportable 08/25/18 00:26 1+ 08/25/18 00:26 1+ 08/25/18 00:26 1+ 08/25/18 00:26 Not Reportable 08/25/18 00:26 Not Reportable 08/25/18 00:26 Not Reportable 08/25/18 00:26 Not Reportable 08/25/18 00:26 Not Reportable 08/25/18 00:26 Not Reportable 08/25/18 00:26 Not Reportable 08/25/18 00:26 Not Reportable 08/25/18 00:26 Not Reportable 08/25/18 00:26 Not Reportable 08/25/18 00:26 Not Reportable 08/25/18 00:26 Not Reportable 08/25/18 00:26 Not Reportable 08/25/18 00:26 Not Reportable 08/25/18 00:26 Not Reportable 08/25/18 00:26 Acanthocytes (Spur) Not Reportable 08/25/18 00:26 Rouleaux Not Reportable 08/25/18 00:26 Not Reportable 08/25/18 00:26 Not Reportable 08/25/18 00:26 Not Reportable 08/25/18 00:26 Not Reportable 08/25/18 00:26 Hem Pathologist Commnt No 08/25/18 00:26 APTT 43.4 Sec. (24.2-36.6) H 08/21/18 15:50 Sodium 141 mmol/L (137-145) 08/25/18 00:26 Potassium 3.1 mmol/L (3.6-5.0) L D 08/25/18 00:26 Chloride 101.1 mmol/L (98-107) 08/25/18 00:26 Carbon Dioxide 27 mmol/L (22-30) D 08/25/18 00:26 16 mmol/L 08/25/18 00:26 BUN 12 mg/dL (7-17) 08/25/18 00:26 1.2 mg/dL (0.7-1.2) 08/25/18 00:26 Estimated GFR 57 ml/min 08/25/18 00:26 10 % 08/25/18 00:26 Glucose 57 mg/dL (65-100) L 08/25/18 00:26 POC Glucose 45 (70-105) L 08/27/18 15:32 13.0 % (4-6) H 08/21/18 20:26 Lactic Acid 1.80 mmol/L (0.7-2.0) 08/21/18 20:26 Calcium 9.7 mg/dL (8.4-10.2) 08/25/18 00:26 0.50 mg/dL (0.1-1.2) 08/25/18 00:26 AST 27 units/L (5-40) 08/25/18 00:26 ALT 28 units/L (7-56) 08/25/18 00:26 318 units/L (35-129) H 08/25/18 00:26 < 0.010 ng/mL (0.00-0.029) 08/21/18 15:50 8.2 g/dL (6.3-8.2) 08/25/18 00:26 3.1 g/dL (3.9-5) L 08/25/18 00:26 0.6 % 08/25/18 00:26 Yellow (Yellow) 08/21/18 15:50 Slightly-cloudy (Clear) 08/21/18 15:50 6.0 (5.0-7.0) 08/21/18 15:50 Ur Specific [place] 1.009 (1.003-1.030) 08/21/18 15:50 100 mg/dl mg/dL (Negative) 08/21/18 15:50 >=500 mg/dL (Negative) 08/21/18 15:50 Neg mg/dL (Negative) 08/21/18 15:50 Sm (Negative) 08/21/18 15:50 Neg (Negative) 08/21/18 15:50 Neg (Negative) 08/21/18 15:50 < 2.0 mg/dL (<2.0) 08/21/18 15:50 Ur Leukocyte Esterase Lg (Negative) 08/21/18 15:50 > 182.0 /HPF (0.0-6.0) H 08/21/18 15:50 3.0 /HPF (0.0-6.0) 08/21/18 15:50 U Epithel Cells (Auto) 2.0 /HPF (0-13.0) 08/21/18 15:50 1+ /HPF (Negative) 08/21/18 15:50 Few /HPF 08/21/18 15:50 Blood Type O POSITIVE 08/21/18 16:20 Antibody Screen Negative 08/21/18 16:20 Active Medications - Current Medications Current Medications: Generic Name Dose Route Start Last Admin Trade Name Freq PRN Reason Stop Dose Admin Acetaminophen 650 mg 08/21/18 20:13 08/26/18 20:58 Tylenol PO 650 mg Q4H PRN Administration Pain MILD(1-3)/Fever >100.5/CINTRON Aspirin 81 mg 08/21/18 20:00 08/27/18 09:50 Baby Aspirin PO 81 mg QDAY MARIA ESTHER Administration Docusate Sodium 100 mg 08/22/18 23:45 08/27/18 09:50 Colace PO 100 mg BID MARIA ESTHER Administration Enoxaparin Sodium 40 mg 08/21/18 19:00 08/27/18 09:50 Lovenox SUB-Q 40 mg QDAY MARIA ESTHER Administration Famotidine 20 mg 08/25/18 22:00 08/27/18 09:50 Pepcid PO 20 mg BID MARIA ESTHER Administration Hydralazine HCl 10 mg 08/21/18 19:57 08/24/18 17:23 Apresoline IV 10 mg Q3H PRN Administration Blood Pressure Hydromorphone HCl 0.5 mg 08/21/18 20:13 Dilaudid IV Q3H PRN Pain , Severe (7-10) Meropenem 1,000 mg/ Sodium 100 mls @ 100 mls/hr 08/26/18 14:00 08/27/18 13:00 Chloride IV 100 mls/hr Q8H MARIA ESTHER Administration Protocol Insulin Human Isoph/Insulin Regular 22 unit 08/24/18 18:29 08/27/18 09:50 Humulin 70/30 SUB-Q 22 unit BIDDIAB MARIA ESTHER Administration Insulin Human Lispro 0 unit 08/21/18 22:00 08/27/18 11:48 Humalog SUB-Q 3 unit ACHS MARIA ESTHER Administration Protocol Lisinopril 40 mg 08/23/18 10:00 08/27/18 09:50 Zestril PO 40 mg QDAY MARIA ESTHER Administration Metoclopramide HCl 10 mg 08/21/18 20:13 Reglan IV Q6H PRN Nausea And Vomiting Nifedipine 60 mg 08/24/18 22:00 08/27/18 09:50 Procardia Xl PO 60 mg Q12HR MARIA ESTHER Administration Ondansetron HCl 4 mg 08/21/18 20:13 Zofran IV Q8H PRN Nausea And Vomiting Oxycodone/Acetaminophen 1 tab 08/21/18 20:13 Percocet 5/325 PO Q6H PRN Pain, Moderate (4-6) Polyethylene Glycol 17 gm 08/22/18 23:19 08/27/18 12:59 Miralax 3350 PO 17 gm QDAY PRN Administration Constipation Pravastatin Sodium 20 mg 08/21/18 22:00 08/27/18 09:50 Pravachol PO 20 mg QDAY MARIA ESTHER Administration Sodium Chloride 10 ml 08/21/18 22:00 08/27/18 11:47 Sodium Chloride Flush Syringe 10 Ml IV 10 ml BID MARIA ESTHER Administration Sodium Chloride 10 ml 08/21/18 20:13 Sodium Chloride Flush Syringe 10 Ml IV PRN PRN LINE FLUSH
[2018-08-27] MEDS: ZOFRAN IV PRN (20:23)
[2018-08-27] MEDS: NACL 0.45% 1000 ML 1,000 ML IV SCH (22:21)
[2018-08-27 22:51] LABS: Basophils # (Auto) 0.1 K/mm3 (0.0-0.1); Basophils % (Auto) 0.5 % (0.0-1.8); Eosinophils % (Auto) 0.1 % (0.0-4.3); Hematocrit 25.9 % (30.3-42.9); Lymphocytes # (Auto) 1.7 K/mm3 (1.2-5.4); Mean Corpuscular HGB Conc 35 % (30-34); Mean Corpuscular Volume 86 fl (79-97); Monocytes # (Auto) 1.5 K/mm3 (0.0-0.8); Monocytes % (Auto) 10.8 % (0.0-7.3); Platelet Count 354 K/mm3 (140-440); Red Blood Count 3.02 M/mm3 (3.65-5.03)
[2018-08-27 23:22] LABS: Calcium 9.2 mg/dL (8.4-10.2)
[2018-08-28] MEDS: TYLENOL PO PRN (01:07)
[2018-08-28] MEDS: MERREM 1,000 MG in NACL 0.9% 100 ML IV SCH ×3 (06:41→22:43)
[2018-08-28] MEDS: PEPCID PO SCH ×2 (10:17→22:43)
[2018-08-28] MEDS: COLACE PO SCH ×2 (10:17→22:43)
[2018-08-28] MEDS: ZESTRIL PO SCH (10:18)
[2018-08-28] MEDS: BABY ASPIRIN PO SCH (10:18)
[2018-08-28] MEDS: PROCARDIA XL PO SCH ×2 (10:19→22:43)
[2018-08-28] MEDS: LOVENOX SUB-Q SCH (10:19)
[2018-08-28] MEDS: HumaLOG SUB-Q SCH ×5 (10:21→23:23)
[2018-08-28] MEDS: PRAVACHOL PO SCH (10:21)
[2018-08-28] MEDS: SODIUM CHLORIDE FLUSH SYRINGE 10 ML IV SCH ×2 (10:22→22:44)
--- NOTE | 2018-08-28 16:13 | Discharge Summary ---
Providers - Providers Date of Admission: 08/21/18 18:24 Attending physician: WENDY CHASE MD 08/22/18 13:00 Consult to Physician [CONS] Routine Comment: Consulting Provider: VIV ROSA Physician Instructions: Reason For Exam: bacteremia [facility] Hospital[facility] Condition: Stable Hospital course: 53-year-old woman with history of hypertension and diabetes Who presents to the hospital with fever and dysuria and suprapubic pain. Sepsis/UTI/gram-negative bacteremia due to ecoli sHe was treated with IV antibiotics and transitioned to oral antibiotics prior to discharge CT a/p reviewed, no acute findings Type 2 diabetes with persistent hyperglycemia, A1c 13.5 optimized insulins, counseled on improved adherence, she is self pay, therefore using 70/30 given its lower cost Hypertension with hypertensive urgency Optimized blood pressure medications Nonadherence to medications Patient has been counseled on preventative health 17 minutes hypokalemia repleted DVT prophylaxis Lovenox Disposition: TO HOME OR SELFCARE Time spent for discharge: 33 mins Core Measure Documentation - Palliative Care Palliative Care/ Comfort Measures: Not Applicable - Core Measures Any of the following diagnoses?: none Exam - Constitutional Vitals: Temp Pulse Resp BP Pulse Ox 98.5 F 125 H 20 150/76 99 08/28/18 06:17 08/28/18 10:18 08/28/18 06:17 08/28/18 10:18 08/28/18 06:17 General appearance: Present: no acute distress, well-nourished - EENT Eyes: Present: PERRL ENT: hearing intact, clear oral mucosa - Neck Neck: Present: supple, normal ROM - Respiratory Respiratory effort: normal Respiratory: bilateral: CTA - Cardiovascular Heart Sounds: Present: S1 & S2. Absent: rub, click - Extremities Extremities: pulses symmetrical, No edema Peripheral Pulses: within normal limits - Abdominal General gastrointestinal: Present: soft, non-tender, non-distended, normal bowel sounds Female genitourinary: Present: normal - Integumentary Integumentary: Present: clear, warm, dry - Musculoskeletal Musculoskeletal: gait normal, strength equal bilaterally - Psychiatric Psychiatric: appropriate mood/affect, intact judgment & insight - Neurologic Neurologic: CNII-XII intact, moves all extremities Plan Follow up with: PRIMARY CARE, [Referring] - 3-5 Days Prescriptions: Ciprofloxacin HCl [Ciprofloxacin TAB] 500 mg PO Q12HR #14 tab glipiZIDE [Glucotrol] 10 mg PO BID #60 tablet Pravastatin Sodium [Pravastatin] 20 mg PO DAILY #30 tablet Lisinopril [Zestril TAB] 40 mg PO QDAY #30 tablet
[2018-08-28] MEDS: GLUCOPHAGE PO SCH (18:38)
[2018-08-28] MEDS: NACL 0.45% 1000 ML 1,000 ML IV SCH (18:43)
[2018-08-29] MEDS: ZOFRAN IV PRN (02:29)
[2018-08-29 06:32] LABS: Chol/HDL Ratio 5.63 %
[2018-08-29] MEDS: MERREM 1,000 MG in NACL 0.9% 100 ML IV SCH ×2 (06:35→13:42)
[2018-08-29] MEDS ORDERED: GLUCOTROL PO SCH (08:00)
[2018-08-29] MEDS: HumaLOG SUB-Q SCH ×2 (08:00→13:37)
[2018-08-29] MEDS: LOVENOX SUB-Q SCH (09:33)
[2018-08-29] MEDS: PRAVACHOL PO SCH (09:33)
[2018-08-29] MEDS: PROCARDIA XL PO SCH (09:33)
[2018-08-29] MEDS: GLUCOPHAGE PO SCH (09:34)
[2018-08-29] MEDS: ZESTRIL PO SCH (09:34)
[2018-08-29] MEDS: COLACE PO SCH (09:34)
[2018-08-29] MEDS: BABY ASPIRIN PO SCH (09:34)
[2018-08-29] MEDS: PEPCID PO SCH (09:34)
[2018-08-29] MEDS: SODIUM CHLORIDE FLUSH SYRINGE 10 ML IV SCH (13:43)
--- NOTE | 2018-08-29 14:16 | Progress Note ---
Assessment and Plan Assessment and plan: 53-year-old woman with history of hypertension and diabetes Who presents to the hospital with fever and dysuria and suprapubic pain. Sepsis/UTI/gram-negative bacteremia due to ecoli Continue antibiotics, ID consult reviewed CT a/p reviewed, no acute findings Type 2 diabetes with persistent hyperglycemia, A1c 13.5 optimized insulins, counseled on improved adherence, she is self pay, therefore using 70/30 given its lower cost Hypertension with hypertensive urgency Optimize blood pressure medications Nonadherence to medications Patient has been counseled on preventative health 17 minutes hypokalemia repleted DVT prophylaxis Lovenox History Interval history: Review of systems Constitutional: She admits to having low-grade fever CVS: No chest pain, no orthopnea, no dyspnea on exertion, no pedal edema GI: Suprapubic pain and dysuria is improved, no diarrhea, no vomiting, no constipation Respiratory: no wheezing, no coughing Hospitalist Physical - Physical exam Narrative exam: General.: Appears well, no distress, nontoxic HEENT: Moist mucous membranes, extraocular muscles intact, no lymphadenopathy Neck: supple Cardiac: S1-S2 heard Lungs: clear to auscultation bilaterally Abdomen: soft , nontender, nondistended, bowel sounds positive Extremities: no edema clubbing or cyanosis Skin: no rash or lesions Neurologic: no gross focal deficits Psych: calm, and cooperative - Constitutional Vitals: Temp Pulse Resp BP Pulse Ox 98.7 F 102 H 20 127/70 100 08/29/18 11:31 08/29/18 11:31 08/29/18 11:31 08/29/18 11:31 08/29/18 11:31 General appearance: Present: no acute distress, well-nourished Results - Labs CBC & Chem 7: 08/27/18 22:24 08/27/18 22:24 Labs: Laboratory Last Values WBC 14.1 K/mm3 (4.5-11.0) H 08/27/18 22:24 RBC 3.02 M/mm3 (3.65-5.03) L 08/27/18 22:24 Hgb 9.0 gm/dl (10.1-14.3) L 08/27/18 22:24 Hct 25.9 % (30.3-42.9) L 08/27/18 22:24 MCV 86 fl (79-97) 08/27/18 22:24 MCH 30 pg (28-32) 08/27/18 22:24 MCHC 35 % (30-34) H 08/27/18 22:24 RDW 16.0 % (13.2-15.2) H 08/27/18 22:24 Plt Count 354 K/mm3 (140-440) 08/27/18 22:24 Lymph % (Auto) 12.0 % (13.4-35.0) L 08/27/18 22:24 [place] % (Auto) 10.8 % (0.0-7.3) H 08/27/18 22:24 Eos % (Auto) 0.1 % (0.0-4.3) 08/27/18 22:24 Baso % (Auto) 0.5 % (0.0-1.8) 08/27/18 22:24 Lymph # 1.7 K/mm3 (1.2-5.4) 08/27/18 22:24 [place] # 1.5 K/mm3 (0.0-0.8) H 08/27/18 22:24 Eos # 0.0 K/mm3 (0.0-0.4) 08/27/18 22:24 Baso # 0.1 K/mm3 (0.0-0.1) 08/27/18 22:24 Add Manual Diff Complete 08/25/18 00:26 Total Counted 100 08/25/18 00:26 Seg Neutrophils % 76.6 % (40.0-70.0) H 08/27/18 22:24 Seg Neuts % (Manual) 89.0 % (40.0-70.0) H 08/25/18 00:26 0 % 08/25/18 00:26 5.0 % (13.4-35.0) L 08/25/18 00:26 Reactive Lymphs % (Man) 0 % 08/25/18 00:26 6.0 % (0.0-7.3) 08/25/18 00:26 0 % (0.0-4.3) 08/25/18 00:26 0 % (0.0-1.8) 08/25/18 00:26 0 % 08/25/18 00:26 0 % 08/25/18 00:26 0 % 08/25/18 00:26 0 % 08/25/18 00:26 Nucleated RBC % Not Reportable 08/25/18 00:26 Seg Neutrophils # 10.8 K/mm3 (1.8-7.7) H 08/27/18 22:24 Seg Neutrophils # Man 16.9 K/mm3 (1.8-7.7) H 08/25/18 00:26 Band Neutrophils # 0.0 K/mm3 08/25/18 00:26 1.0 K/mm3 (1.2-5.4) L 08/25/18 00:26 Abs React Lymphs (Man) 0.0 K/mm3 08/25/18 00:26 1.1 K/mm3 (0.0-0.8) H 08/25/18 00:26 0.0 K/mm3 (0.0-0.4) 08/25/18 00:26 0.0 K/mm3 (0.0-0.1) 08/25/18 00:26 0.0 K/mm3 08/25/18 00:26 0.0 K/mm3 08/25/18 00:26 0.0 K/mm3 08/25/18 00:26 Blast Cells # 0.0 K/mm3 08/25/18 00:26 WBC Morphology Not Reportable 08/25/18 00:26 Hypersegmented Neuts Not Reportable 08/25/18 00:26 Hyposegmented Neuts Not Reportable 08/25/18 00:26 Hypogranular Neuts Not Reportable 08/25/18 00:26 Not Reportable 08/25/18 00:26 Not Reportable 08/25/18 00:26 Not Reportable 08/25/18 00:26 Not Reportable 08/25/18 00:26 Not Reportable 08/25/18 00:26 Not Reportable 08/25/18 00:26 Consistent w auto 08/25/18 00:26 Not Reportable 08/25/18 00:26 Plt Clumps, EDTA Not Reportable 08/25/18 00:26 1+ 08/25/18 00:26 Not Reportable 08/25/18 00:26 Not Reportable 08/25/18 00:26 Plt Morphology Comment Not Reportable 08/25/18 00:26 RBC Morphology Not Reportable 08/25/18 00:26 Dimorphic RBCs Not Reportable 08/25/18 00:26 Not Reportable 08/25/18 00:26 1+ 08/25/18 00:26 1+ 08/25/18 00:26 1+ 08/25/18 00:26 Not Reportable 08/25/18 00:26 Not Reportable 08/25/18 00:26 Not Reportable 08/25/18 00:26 Not Reportable 08/25/18 00:26 Not Reportable 08/25/18 00:26 Not Reportable 08/25/18 00:26 Not Reportable 08/25/18 00:26 Not Reportable 08/25/18 00:26 Not Reportable 08/25/18 00:26 Not Reportable 08/25/18 00:26 Not Reportable 08/25/18 00:26 Not Reportable 08/25/18 00:26 Not Reportable 08/25/18 00:26 Not Reportable 08/25/18 00:26 Not Reportable 08/25/18 00:26 Acanthocytes (Spur) Not Reportable 08/25/18 00:26 Rouleaux Not Reportable 08/25/18 00:26 Not Reportable 08/25/18 00:26 Not Reportable 08/25/18 00:26 Not Reportable 08/25/18 00:26 Not Reportable 08/25/18 00:26 Hem Pathologist Commnt No 08/25/18 00:26 APTT 43.4 Sec. (24.2-36.6) H 08/21/18 15:50 Sodium 137 mmol/L (137-145) 08/27/18 22:24 Potassium 4.6 mmol/L (3.6-5.0) D 08/27/18 22:24 Chloride 98.2 mmol/L (98-107) 08/27/18 22:24 Carbon Dioxide 30 mmol/L (22-30) 08/27/18 22:24 13 mmol/L 08/27/18 22:24 BUN 9 mg/dL (7-17) 08/27/18 22:24 1.2 mg/dL (0.7-1.2) 08/27/18 22:24 Estimated GFR 57 ml/min 08/27/18 22:24 8 % 08/27/18 22:24 Glucose 198 mg/dL (65-100) H 08/27/18 22:24 POC Glucose 249 (70-105) H 08/29/18 11:38 13.0 % (4-6) H 08/21/18 20:26 Lactic Acid 1.80 mmol/L (0.7-2.0) 08/21/18 20:26 Calcium 9.2 mg/dL (8.4-10.2) 08/27/18 22:24 0.50 mg/dL (0.1-1.2) 08/25/18 00:26 AST 27 units/L (5-40) 08/25/18 00:26 ALT 28 units/L (7-56) 08/25/18 00:26 318 units/L (35-129) H 08/25/18 00:26 < 0.010 ng/mL (0.00-0.029) 08/21/18 15:50 8.2 g/dL (6.3-8.2) 08/25/18 00:26 3.1 g/dL (3.9-5) L 08/25/18 00:26 0.6 % 08/25/18 00:26 Triglycerides 150 mg/dL (2-149) H 08/29/18 05:18 Cholesterol 124 mg/dL (50-199) 08/29/18 05:18 73 mg/dL (50-130) 08/29/18 05:18 22 mg/dL (40-59) L 08/29/18 05:18 5.63 % 08/29/18 05:18 Yellow (Yellow) 08/21/18 15:50 Slightly-cloudy (Clear) 08/21/18 15:50 6.0 (5.0-7.0) 08/21/18 15:50 Ur Specific [place] 1.009 (1.003-1.030) 08/21/18 15:50 100 mg/dl mg/dL (Negative) 08/21/18 15:50 >=500 mg/dL (Negative) 08/21/18 15:50 Neg mg/dL (Negative) 08/21/18 15:50 Sm (Negative) 08/21/18 15:50 Neg (Negative) 08/21/18 15:50 Neg (Negative) 08/21/18 15:50 < 2.0 mg/dL (<2.0) 08/21/18 15:50 Ur Leukocyte Esterase Lg (Negative) 08/21/18 15:50 > 182.0 /HPF (0.0-6.0) H 08/21/18 15:50 3.0 /HPF (0.0-6.0) 08/21/18 15:50 U Epithel Cells (Auto) 2.0 /HPF (0-13.0) 08/21/18 15:50 1+ /HPF (Negative) 08/21/18 15:50 Few /HPF 08/21/18 15:50 Blood Type O POSITIVE 08/21/18 16:20 Antibody Screen Negative 08/21/18 16:20 Active Medications - Current Medications Current Medications: Generic Name Dose Route Start Last Admin Trade Name Freq PRN Reason Stop Dose Admin Acetaminophen 650 mg 08/21/18 20:13 08/28/18 01:07 Tylenol PO 650 mg Q4H PRN Administration Pain MILD(1-3)/Fever >100.5/CINTRON Aspirin 81 mg 08/21/18 20:00 08/29/18 09:34 Baby Aspirin PO 81 mg QDAY MARIA ESTHER Administration Docusate Sodium 100 mg 08/22/18 23:45 08/29/18 09:34 Colace PO 100 mg BID MARIA ESTHER Administration Enoxaparin Sodium 40 mg 08/21/18 19:00 08/29/18 09:33 Lovenox SUB-Q 40 mg QDAY MARIA ESTHER Administration Famotidine 20 mg 08/25/18 22:00 08/29/18 09:34 Pepcid PO 20 mg BID MARIA ESTHER Administration Glipizide 10 mg 08/29/18 08:00 08/29/18 09:33 Glucotrol PO 10 mg QDDIAB MARIA ESTHER Administration Hydralazine HCl 10 mg 08/21/18 19:57 08/24/18 17:23 Apresoline IV 10 mg Q3H PRN Administration Blood Pressure Hydromorphone HCl 0.5 mg 08/21/18 20:13 Dilaudid IV Q3H PRN Pain , Severe (7-10) Meropenem 1,000 mg/ Sodium 100 mls @ 100 mls/hr 08/26/18 14:00 08/29/18 13:42 Chloride IV 100 mls/hr Q8H MARIA ESTHER Administration Protocol Sodium Chloride 1,000 mls @ 50 mls/hr 08/27/18 22:00 08/28/18 18:43 Nacl 0.45% 1000 Ml IV 50 mls/hr DIRECT MARIA ESTHER Administration Insulin Human Lispro 0 unit 08/21/18 22:00 08/29/18 13:37 Humalog SUB-Q 2 unit ACHS MARIA ESTHER Administration Protocol Lisinopril 40 mg 08/23/18 10:00 08/29/18 09:34 Zestril PO 40 mg QDAY MARIA ESTHER Administration Metformin HCl 500 mg 08/28/18 17:00 08/29/18 09:34 Glucophage PO 500 mg BIDDIAB MARIA ESTHER Administration Metoclopramide HCl 10 mg 08/21/18 20:13 08/29/18 09:33 Reglan IV 10 mg Q6H PRN Administration Nausea And Vomiting Nifedipine 60 mg 08/24/18 22:00 08/29/18 09:33 Procardia Xl PO 60 mg Q12HR MARIA ESTHER Administration Ondansetron HCl 4 mg 08/21/18 20:13 08/29/18 02:29 Zofran IV 4 mg Q8H PRN Administration Nausea And Vomiting Oxycodone/Acetaminophen 1 tab 08/21/18 20:13 Percocet 5/325 PO Q6H PRN Pain, Moderate (4-6) Polyethylene Glycol 17 gm 08/22/18 23:19 08/27/18 12:59 Miralax 3350 PO 17 gm QDAY PRN Administration Constipation Pravastatin Sodium 20 mg 08/21/18 22:00 08/29/18 09:33 Pravachol PO 20 mg QDAY MARIA ESTHER Administration Sodium Chloride 10 ml 08/21/18 22:00 08/29/18 13:43 Sodium Chloride Flush Syringe 10 Ml IV 10 ml BID MARIA ESTHER Administration Sodium Chloride 10 ml 08/21/18 20:13 Sodium Chloride Flush Syringe 10 Ml IV PRN PRN LINE FLUSH Nutrition/Malnutrition Assess - Dietary Evaluation Nutrition/Malnutrition Findings: Nutrition Notes Start: 08/27/18 16:56 Freq: Status: Active Protocol: Document 08/27/18 16:56 RM (Rec: 08/27/18 16:56 RM [email or web address]) Nutrition Notes Need for Assessment generated from: LOS Initial or Follow up Brief Note Height 5 ft 5 in Weight 65.7 kg [place] Body Weight (kg) 56.81 BMI 24.0 Subjective/Other Information Screened for LOS. Recorded PO intake 100% X 3 meals. Nutrition Intervention Revisit per MD consult or patient Sign Off request:
[2018-08-29 18:13] VITALS: BP 145/79
== END 2018-08-29 18:30 | disposition home or self-care (01) | DRG 871 ==
LOC: ED 15:36 → 3A 18:24
PROVIDERS: ADMIT Internal Medicine; ATTEND Internal Medicine
DX: A41.51 Sepsis due to Escherichia coli [E. coli] (principal); N17.0 Acute kidney failure with tubular necrosis; N30.00 Acute cystitis without hematuria; E87.1 Hypo-osmolality and hyponatremia; I16.0 Hypertensive urgency; E87.6 Hypokalemia; E78.2 Mixed hyperlipidemia; E11.65 Type 2 diabetes mellitus with hyperglycemia; I10 Essential (primary) hypertension; E78.00 Pure hypercholesterolemia, unspecified; Z82.49 Family history of ischemic heart disease and other diseases of the circulatory system; Z79.82 Long term (current) use of aspirin; Z79.899 Other long term (current) drug therapy; Z91.14 Patient's other noncompliance with medication regimen; Z79.84 Long term (current) use of oral hypoglycemic drugs
CPT/HCPCS: 36415; 71045; 74177; 76705; 76770; 80048; 80053; 80061; 81001; 82140; 82962; 83036; 84484; 85007; 85025; 85730; 86850; 86900; 86901; 87040; 87076; 87086; 87186; 93005; 93010; G0378; A9270-GY; J0360; J0696; J1650; J1815; J1885; J1956; J2185; J2405; J2765; J7030; Q9967

== ENCOUNTER 2018-09-02 16:43 | Inpatient (IN) | payer OTHER ==
--- NOTE | 2018-09-02 16:57 | Event Note ---
ED Screening Note ED Screening Note: pt presents with dizziness earlier today feels like the room is spinning never had before no CINTRON no vision problems numbness in the left fingertips that began this morning PMHx HTN, DM This initial assessment/diagnostic orders/clinical plan/treatment(s) is/are subject to change based on patients health status, clinical progression and re- assessment by fellow clinical providers in the ED. Further treatment and workup at subsequent clinical providers discretion. Patient/guardian urged not to elope from the ED as their condition may be serious if not clinically assessed and managed. Initial orders include: code stroke initiated
--- NOTE | 2018-09-02 17:33 | Cat Scan Report ---
CT head without contrast CLINICAL HISTORY: Cerebrovascular accident FINDINGS: No previous exams available for comparison. There are scattered areas of decreased attenuat ion involving the cerebral white matter most consistent with microvascular angiopathy. The findings i nclude the periventricular and subcortical regions at. The ventricular system is within normal limits in size and configuration. There is no CT evidence of acute intracranial hemorrhage or significant m ass effect. The visualized paranasal sinuses are clear. All CT scans at this location are performed u sing the CT dose reduction for ALARA by means of automated exposure control. 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 The findings are were called emergently to the requesting physician at the time the study was complet ed per the code stroke protocol. Signer Name: Waylon Yepez MD Signed: 09/02/2018 5:29 PM Workstation Name: [id number]
--- NOTE | 2018-09-02 17:45 | Emergency Department Report ---
ED Neuro Deficit HPI - General Chief Complaint: Dizziness Stated Complaint: DIZZY/STOMACH CRAMPS Time Seen by Provider: 09/02/18 16:53 Source: patient, family Mode of arrival: Ambulatory Limitations: No Limitations - History of Present Illness Initial Comments: Patient is 53 years old female with history of hypertension, diabetes and hyper lipidemia. Patient presented to the ER from her primary care physician office after patient started to have a sudden onset of dizziness at 1 PM today. Stroke alert initiated and patient immediately moved to a CT suite for CT brain. Patient immediately evaluated by neurologist through telemetry neurology by Dr. Lujan. Location: other (dizziness) History of same: Yes Place: other (primary care physician office) Severity: moderate Context: sudden onset Associated Symptoms: denies other symptoms - Related Data Home Medications: Home Medications Medication Instructions Recorded Confirmed Last Taken Aspirin [Aspirin BABY CHEW TAB] 81 mg PO QDAY 02/15/14 09/02/18 09/01/18 Previous Rx's Medication Instructions Recorded Last Taken Type Ciprofloxacin HCl [Ciprofloxacin 500 mg PO Q12HR #14 tab 08/28/18 09/02/18 Rx TAB] Lisinopril [Zestril TAB] 40 mg PO QDAY #30 tablet 08/28/18 09/02/18 Rx NIFEdipine XL [Procardia Xl] 60 mg PO Q12HR #60 tablet 08/28/18 09/02/18 Rx Pravastatin Sodium [Pravastatin] 20 mg PO DAILY #30 tablet 08/28/18 09/02/18 Rx metFORMIN [Glucophage] 500 mg PO BIDDIAB #60 tablet 08/28/18 09/02/18 Rx glipiZIDE [Glucotrol] 10 mg PO BID #60 tablet 08/29/18 09/02/18 Rx Allergies/Adverse Reactions: Allergies Allergy/AdvReac Type Severity Reaction Status Date / Time No Known Allergies Allergy Verified 02/12/14 18:07 ED Review of Systems ROS: Stated complaint: DIZZY/STOMACH CRAMPS Other details as noted in HPI Comment: All other systems reviewed and negative Constitutional: denies: chills, fever Respiratory: denies: cough, orthopnea, shortness of breath, SOB with exertion, SOB at rest Gastrointestinal: denies: abdominal pain, nausea, vomiting Neurological: vertigo ED Past Medical Hx - Past Medical History Previous Medical History?: Yes Hx Hypertension: Yes Hx Heart Attack/AMI: No Hx Congestive Heart Failure: No Hx Diabetes: Yes Hx Asthma: No Hx COPD: No Additional medical history: High cholesterol - Surgical History Past Surgical History?: No - Social History Smoking Status: Never Smoker Substance Use Type: None - Medications Home Medications: Home Medications Medication Instructions Recorded Confirmed Last Taken Type Aspirin [Aspirin BABY CHEW TAB] 81 mg PO QDAY 02/15/14 09/02/18 09/01/18 History Ciprofloxacin HCl [Ciprofloxacin 500 mg PO Q12HR #14 tab 08/28/18 09/02/18 09/02/18 Rx TAB] Lisinopril [Zestril TAB] 40 mg PO QDAY #30 tablet 08/28/18 09/02/18 09/02/18 Rx NIFEdipine XL [Procardia Xl] 60 mg PO Q12HR #60 tablet 08/28/18 09/02/18 09/02/18 Rx Pravastatin Sodium [Pravastatin] 20 mg PO DAILY #30 tablet 08/28/18 09/02/18 09/02/18 Rx metFORMIN [Glucophage] 500 mg PO BIDDIAB #60 tablet 08/28/18 09/02/18 09/02/18 Rx glipiZIDE [Glucotrol] 10 mg PO BID #60 tablet 08/29/18 09/02/18 09/02/18 Rx ED Neuro Physical Exam - General Limitations: No Limitations General appearance: alert, in no apparent distress Suspected Stroke: Yes - Head Head exam: Present: atraumatic, normocephalic, normal inspection - Eye Eye exam: Present: normal appearance - ENT ENT exam: Present: normal exam, normal orophraynx, mucous membranes moist - Neck Neck exam: Present: normal inspection, full ROM. Absent: tenderness, meningismus, lymphadenopathy, thyromegaly - Respiratory Respiratory exam: Present: normal lung sounds bilaterally - Cardiovascular Cardiovascular Exam: Present: regular rate, normal rhythm, normal heart sounds - GI/Abdominal GI/Abdominal exam: Present: soft, normal bowel sounds. Absent: distended, te nderness, guarding, rebound, rigid - Extremities Exam Extremities exam: Present: normal inspection, full ROM, normal capillary refill - Back Exam Back exam: Present: normal inspection, full ROM. Absent: CVA tenderness (R), CVA tenderness (L) - Neurological Exam Neurological exam: Present: alert, oriented X3, CN II-XII intact - NIHSS Assessment Interval: Baseline 1a. Level of Consciousness: alert/keenly responsive 1b. LOC Questions: answers both correctly 1c. LOC Commands: performs tasks correctly 2. Best Gaze: normal 3. Visual: no visual loss 4. Facial Palsy: normal symmetrical movement 5b. Motor Arm Right: no drift 5a. Motor Arm Left: no drift 6a. Motor Leg Left: no drift 6b. Motor Leg Right: no drift 7. Limb Ataxia: absent 8. Sensory: normal 9. Best Language: no aphasia 10. Dysarthria: normal 11. Extinction/Inattention: no abnormality Total Score: 0 Stroke Severity: No Stroke Symptoms - Psychiatric Psychiatric exam: Present: normal mood - Skin Skin exam: Present: warm, intact, normal color ED Course Vital Signs 09/02/18 09/02/18 16:54 17:25 Temperature 98.3 F Pulse Rate 113 H 118 H Respiratory 18 16 Rate Blood Pressure 154/93 Blood Pressure 171/88 [Left] O2 Sat by Pulse 98 100 Oximetry - Lab Data Result diagrams: 09/02/18 17:23 09/02/18 17:23 Lab Results 09/02/18 09/02/18 09/02/18 Range/Units 17:17 17:23 17:23 WBC 19.5 H (4.5-11.0) K/mm3 RBC 3.36 L (3.65-5.03) M/mm3 Hgb 9.7 L (10.1-14.3) gm/dl Hct 29.0 L (30.3-42.9) % MCV 86 (79-97) fl MCH 29 (28-32) pg MCHC 33 (30-34) % RDW 16.1 H (13.2-15.2) % Plt Count 521 H (140-440) K/mm3 Lymph % (Auto) 18.9 (13.4-35.0) % [place] % (Auto) 9.8 H (0.0-7.3) % Eos % (Auto) 0.0 (0.0-4.3) % Baso % (Auto) 0.6 (0.0-1.8) % Lymph # 3.7 (1.2-5.4) K/mm3 [place] # 1.9 H (0.0-0.8) K/mm3 Eos # 0.0 (0.0-0.4) K/mm3 Baso # 0.1 (0.0-0.1) K/mm3 Seg Neutrophils % 70.7 H (40.0-70.0) % Seg Neutrophils # 13.7 H (1.8-7.7) K/mm3 PT 14.1 (12.2-14.9) Sec. INR 1.12 (0.87-1.13) APTT 45.4 H (24.2-36.6) Sec. Thrombin Time 19.2 (15.1-19.6) Sec. Sodium (137-145) mmol/L Chloride (98-107) mmol/L Carbon Dioxide (22-30) mmol/L BUN (7-17) mg/dL Creatinine (0.7-1.2) mg/dL Estimated GFR ml/min BUN/Creatinine Ratio % Glucose (65-100) mg/dL POC Glucose 161 H (70-105) Calcium (8.4-10.2) mg/dL Total Bilirubin (0.1-1.2) mg/dL Alkaline Phosphatase (35-129) units/L Total Creatine Kinase (30-135) units/L Troponin T (0.00-0.029) ng/mL Total Protein (6.3-8.2) g/dL Albumin (3.9-5) g/dL Albumin/Globulin Ratio % Urine Color (Yellow) Urine Turbidity (Clear) Urine pH (5.0-7.0) Ur Specific [place] (1.003-1.030) Urine Protein (Negative) mg/dL Urine Glucose (UA) (Negative) mg/dL Urine Ketones (Negative) mg/dL Urine Blood (Negative) Urine Nitrite (Negative) Urine Bilirubin (Negative) Urine Urobilinogen (<2.0) mg/dL Ur Leukocyte Esterase (Negative) Urine WBC (Auto) (0.0-6.0) /HPF Urine RBC (Auto) (0.0-6.0) /HPF U Epithel Cells (Auto) (0-13.0) /HPF Urine Mucus /HPF 09/02/18 09/02/18 09/02/18 Range/Units 17:23 17:23 17:49 WBC (4.5-11.0) K/mm3 RBC (3.65-5.03) M/mm3 Hgb (10.1-14.3) gm/dl Hct (30.3-42.9) % MCV (79-97) fl MCH (28-32) pg MCHC (30-34) % RDW (13.2-15.2) % Plt Count (140-440) K/mm3 Lymph % (Auto) (13.4-35.0) % [place] % (Auto) (0.0-7.3) % Eos % (Auto) (0.0-4.3) % Baso % (Auto) (0.0-1.8) % Lymph # (1.2-5.4) K/mm3 [place] # (0.0-0.8) K/mm3 Eos # (0.0-0.4) K/mm3 Baso # (0.0-0.1) K/mm3 Seg Neutrophils % (40.0-70.0) % Seg Neutrophils # (1.8-7.7) K/mm3 PT (12.2-14.9) Sec. INR (0.87-1.13) APTT (24.2-36.6) Sec. Thrombin Time (15.1-19.6) Sec. Sodium 132 L (137-145) mmol/L Chloride 91.5 L (98-107) mmol/L Carbon Dioxide 23 (22-30) mmol/L BUN 15 (7-17) mg/dL Creatinine 1.3 H (0.7-1.2) mg/dL Estimated GFR 52 ml/min BUN/Creatinine Ratio 12 % Glucose 134 H (65-100) mg/dL POC Glucose (70-105) Calcium 9.6 (8.4-10.2) mg/dL Total Bilirubin 0.50 (0.1-1.2) mg/dL Alkaline Phosphatase 260 H (35-129) units/L Total Creatine Kinase 26 L (30-135) units/L Troponin T < 0.010 (0.00-0.029) ng/mL Total Protein 9.1 H (6.3-8.2) g/dL Albumin 3.4 L (3.9-5) g/dL Albumin/Globulin Ratio 0.6 % Urine Color Yellow (Yellow) Urine Turbidity Clear (Clear) Urine pH 6.0 (5.0-7.0) Ur Specific [place] 1.005 (1.003-1.030) Urine Protein <15 mg/dl (Negative) mg/dL Urine Glucose (UA) Neg (Negative) mg/dL Urine Ketones Neg (Negative) mg/dL Urine Blood Neg (Negative) Urine Nitrite Neg (Negative) Urine Bilirubin Neg (Negative) Urine Urobilinogen < 2.0 (<2.0) mg/dL Ur Leukocyte Esterase Tr (Negative) Urine WBC (Auto) 3.0 (0.0-6.0) /HPF Urine RBC (Auto) 3.0 (0.0-6.0) /HPF U Epithel Cells (Auto) 7.0 (0-13.0) /HPF Urine Mucus Few /HPF - EKG Data -: EKG Interpreted by Me - Radiology Data Radiology results: report reviewed - Medical Decision Making Patient is 53 years old female with history of hypertension, diabetes and hyper lipidemia. Patient presented to the ER from her primary care physician office after patient started to have a sudden onset of dizziness at 1 PM today. Stroke alert initiated and patient immediately moved to a CT suite for CT brain. Patient immediately evaluated by neurologist through telemetry neurology by Dr. Lujan. Dr. Lujan indicated that patient is not a TPA candidate. She advised that patient needed to be admitted for stroke workup possible posterior circulation stroke. I discussed the patient was , he agreed to admit the patient to medical service. Critical Care Time: Yes Critical care time in (mins) excluding proc time.: 30 Critical care attestation.: If time is entered above; I have spent that time in minutes in the direct care of this critically ill patient, excluding procedure time. ED Disposition Clinical Impression: Dizziness, CVA (cerebral vascular accident) Disposition: DC-09 OP ADMIT IP TO THIS HOSP Is pt being admited?: Yes Condition: Stable
[2018-09-02 17:48] LABS: INR 1.12 (0.87-1.13)
[2018-09-02 17:49] LABS: Partial Thromboplastin Time 45.4 Sec. (24.2-36.6); Thrombin Time 19.2 Sec. (15.1-19.6)
[2018-09-02 18:01] LABS: Basophils # (Auto) 0.1 K/mm3 (0.0-0.1); Basophils % (Auto) 0.6 % (0.0-1.8); Hemoglobin 9.7 gm/dl (10.1-14.3); Lymphocytes # (Auto) 3.7 K/mm3 (1.2-5.4); Lymphocytes % (Auto) 18.9 % (13.4-35.0); Mean Corpuscular HGB Conc 33 % (30-34); Mean Corpuscular Volume 86 fl (79-97); Monocytes # (Auto) 1.9 K/mm3 (0.0-0.8); Monocytes % (Auto) 9.8 % (0.0-7.3); Platelet Count 521 K/mm3 (140-440); Red Blood Count 3.36 M/mm3 (3.65-5.03); Red Cell Distribution Width 16.1 % (13.2-15.2)
[2018-09-02 18:02] LABS: Albumin 3.4 g/dL (3.9-5); Calcium 9.6 mg/dL (8.4-10.2)
[2018-09-02 18:21] LABS: Bilirubin,Urine NEG (Negative); Blood,Urine NEG (Negative); Color,Urine Yellow (Yellow); Mucus,Urine FEW /HPF; Protein,Urine <15 mg/dL mg/dL (Negative); Urobilinogen,Urine < 2.0 mg/dL (<2.0)
[2018-09-02 18:50] LABS: Creatine Kinase MB < 1.0 ng/mL (0.0-4.0)
--- NOTE | 2018-09-02 19:00 | XRay Report ---
CHEST 1 VIEW 09/02/2018 6:33 PM INDICATION / CLINICAL INFORMATION: dizziness. COMPARISON: Chest x-ray 08/21/2018 FINDINGS: SUPPORT DEVICES: None. HEART / MEDIASTINUM: No significant abnormality. LUNGS / PLEURA: No significant pulmonary or pleural abnormality. No pneumothorax. ADDITIONAL FINDINGS: Old healed right midclavicular fracture, unchanged IMPRESSION: 1. No acute findings. Signer Name: Fabricio Balbuena MD Signed: 09/02/2018 6:56 PM Workstation Name: [email or web address]
[2018-09-02] MEDS ORDERED: ZOSYN/NS 3.375GM/50ML 3.375 GM/50 ML BAG IV ONE (19:31)
[2018-09-02] MEDS ORDERED: MILK OF MAGNESIA PO PRN (19:52)
[2018-09-02] MEDS ORDERED: TYLENOL PO PRN (19:52)
[2018-09-02] MEDS ORDERED: ZOFRAN IV PRN (19:52)
--- NOTE | 2018-09-02 21:07 | History and Physical Report ---
History of Present Illness Date of examination: 09/02/18 Date of admission: 09/02/18 Chief complaint: Dizziness, elevated blood pressures History of present illness: 53-year-old -[place] female with history of uncontrolled diabetes type 2, hypertension, hyperlipidemia who presents to [facility] ED complaints of dizziness and hypertension. Patient states that she was at her primary care physician (Dr. Emmanuel) office earlier today, when she began to fell dizzy. Medical staff at the PCP's office checed her BP and it was significantly elevated. She was referred to ED. Admits: Nonproductive dry cough, poor appetite, dizziness Denies: Headache, loss of consciousness, visual disturbances, gait dysfunction, nausea, vomiting, diarrhea, fever, hemoptysis, recent sick contact Review of chart shows patient was admitted earlier this month and treated for urinary tract infection. Past History Past Medical History: diabetes, hypertension, hyperlipidemia Past Surgical History: No surgical history Social history: , Lives alone Family history: no significant family history Medications and Allergies Allergies Allergy/AdvReac Type Severity Reaction Status Date / Time No Known Allergies Allergy Verified 02/12/14 18:07 Home Medications Medication Instructions Recorded Confirmed Last Taken Type Aspirin [Aspirin BABY CHEW TAB] 81 mg PO QDAY 02/15/14 09/02/18 09/01/18 History Ciprofloxacin HCl [Ciprofloxacin 500 mg PO Q12HR #14 tab 08/28/18 09/02/18 09/02/18 Rx TAB] Lisinopril [Zestril TAB] 40 mg PO QDAY #30 tablet 08/28/18 09/02/18 09/02/18 Rx NIFEdipine XL [Procardia Xl] 60 mg PO Q12HR #60 tablet 08/28/18 09/02/18 09/02/18 Rx Pravastatin Sodium [Pravastatin] 20 mg PO DAILY #30 tablet 08/28/18 09/02/18 09/02/18 Rx metFORMIN [Glucophage] 500 mg PO BIDDIAB #60 tablet 08/28/18 09/02/18 09/02/18 Rx glipiZIDE [Glucotrol] 10 mg PO BID #60 tablet 08/29/18 09/02/18 09/02/18 Rx Active Meds: Active Medications Acetaminophen (Tylenol) 650 mg PO Q4H PRN PRN Reason: Pain, Mild (1-3) Aspirin (Aspirin) 325 mg PO QDAY MARIA ESTHER Atorvastatin Calcium (Lipitor) 40 mg PO QHS [facility] Dextrose (D50w (25gm) Syringe) 50 ml IV PRN PRN PRN Reason: Hypoglycemia Docusate Sodium (Colace) 100 mg PO BID MARIA ESTHER Enoxaparin Sodium (Lovenox) 40 mg SUB-Q QDAY MARIA ESTHER Glipizide (Glucotrol) 10 mg PO BID MARIA ESTHER Insulin Human Regular (Humulin R) 0 units SUB-Q ACHS MARIA ESTHER; Protocol Magnesium Hydroxide (Milk Of Magnesia) 30 ml PO Q4H PRN PRN Reason: Constipation Metformin HCl (Glucophage) 500 mg PO BIDDIAB MARIA ESTHER Nifedipine (Procardia Xl) 60 mg PO Q12HR MARIA ESTHER Ondansetron HCl (Zofran) 4 mg IV Q8H PRN PRN Reason: Nausea And Vomiting Sodium Chloride (Sodium Chloride Flush Syringe 10 Ml) 10 ml IV PRN PRN PRN Reason: LINE FLUSH Review of Systems All systems: negative (reviewed and no additional remarkable complaints except as noted below) Constitutional: poor appetite Cardiovascular: lightheadedness, high blood pressure Neurological: other (dizziness) Exam - Physical Exam Narrative exam: Physical exam General appearance: Present: No acute distress, alert and oriented 3, well- developed, well-nourished, pleasant -[place] female - EENT Eyes: Present: PERRL, EOM intact ENT: hearing intact, normal dentition - Neck Neck: Present: supple, normal ROM - Respiratory Respiratory effort: Non-labored Respiratory: Clear Throughout - Cardiovascular Heart rate:113 (bpm) Rhythm: ST Heart Sounds: Present: S1 & S2. Absent: rub, click - Extremities Extremities: no ischemia, pulses intact, - Peripheral Assessment Peripheral Pulses: within normal limits - Abdominal General gastrointestinal: soft, non-tender, normal bowel sounds - Integumentary Integumentary: Present: warm, dry - Musculoskeletal Musculoskeletal: generalized weakness - Psychiatric Psychiatric: cooperative - Constitutional Vitals: Temp Pulse Resp BP Pulse Ox 98.8 F 102 H 14 156/91 98 09/02/18 18:54 09/02/18 18:54 09/02/18 18:54 09/02/18 18:54 09/02/18 18:54 Results - Labs CBC & Chem 7: 09/02/18 17:23 09/02/18 17:23 Labs: Laboratory Last Values WBC 19.5 K/mm3 (4.5-11.0) H 09/02/18 17:23 RBC 3.36 M/mm3 (3.65-5.03) L 09/02/18 17:23 Hgb 9.7 gm/dl (10.1-14.3) L 09/02/18 17:23 Hct 29.0 % (30.3-42.9) L 09/02/18 17:23 MCV 86 fl (79-97) 09/02/18 17:23 MCH 29 pg (28-32) 09/02/18 17:23 MCHC 33 % (30-34) 09/02/18 17:23 RDW 16.1 % (13.2-15.2) H 09/02/18 17:23 Plt Count 521 K/mm3 (140-440) H 09/02/18 17:23 Lymph % (Auto) 18.9 % (13.4-35.0) 09/02/18 17:23 [place] % (Auto) 9.8 % (0.0-7.3) H 09/02/18 17:23 Eos % (Auto) 0.0 % (0.0-4.3) 09/02/18 17:23 Baso % (Auto) 0.6 % (0.0-1.8) 09/02/18 17:23 Lymph # 3.7 K/mm3 (1.2-5.4) 09/02/18 17:23 [place] # 1.9 K/mm3 (0.0-0.8) H 09/02/18 17:23 Eos # 0.0 K/mm3 (0.0-0.4) 09/02/18 17:23 Baso # 0.1 K/mm3 (0.0-0.1) 09/02/18 17:23 Seg Neutrophils % 70.7 % (40.0-70.0) H 09/02/18 17:23 Seg Neutrophils # 13.7 K/mm3 (1.8-7.7) H 09/02/18 17:23 PT 14.1 Sec. (12.2-14.9) 09/02/18 17:23 INR 1.12 (0.87-1.13) 09/02/18 17:23 APTT 45.4 Sec. (24.2-36.6) H 09/02/18 17:23 19.2 Sec. (15.1-19.6) 09/02/18 17:23 Sodium 132 mmol/L (137-145) L 09/02/18 17:23 Potassium 4.8 mmol/L (3.6-5.0) 09/02/18 17:23 Chloride 91.5 mmol/L (98-107) L 09/02/18 17:23 Carbon Dioxide 23 mmol/L (22-30) 09/02/18 17:23 22 mmol/L 09/02/18 17:23 BUN 15 mg/dL (7-17) 09/02/18 17:23 1.3 mg/dL (0.7-1.2) H 09/02/18 17:23 Estimated GFR 52 ml/min 09/02/18 17:23 12 % 09/02/18 17:23 Glucose 134 mg/dL (65-100) H 09/02/18 17:23 POC Glucose 161 (70-105) H 09/02/18 17:17 Calcium 9.6 mg/dL (8.4-10.2) 09/02/18 17:23 0.50 mg/dL (0.1-1.2) 09/02/18 17:23 AST 34 units/L (5-40) 09/02/18 17:23 ALT 20 units/L (7-56) 09/02/18 17:23 260 units/L (35-129) H 09/02/18 17:23 26 units/L (30-135) L 09/02/18 17:23 CK-MB (CK-2) < 1.0 ng/mL (0.0-4.0) 09/02/18 17:23 CK-MB (CK-2) Rel Index 3.8 (0-4) 09/02/18 17:23 < 0.010 ng/mL (0.00-0.029) 09/02/18 17:23 9.1 g/dL (6.3-8.2) H 09/02/18 17:23 3.4 g/dL (3.9-5) L 09/02/18 17:23 0.6 % 09/02/18 17:23 Yellow (Yellow) 09/02/18 17:49 Clear (Clear) 09/02/18 17:49 6.0 (5.0-7.0) 09/02/18 17:49 Ur Specific [place] 1.005 (1.003-1.030) 09/02/18 17:49 <15 mg/dl mg/dL (Negative) 09/02/18 17:49 Neg mg/dL (Negative) 09/02/18 17:49 Neg mg/dL (Negative) 09/02/18 17:49 Neg (Negative) 09/02/18 17:49 Neg (Negative) 09/02/18 17:49 Neg (Negative) 09/02/18 17:49 < 2.0 mg/dL (<2.0) 09/02/18 17:49 Ur Leukocyte Esterase Tr (Negative) 09/02/18 17:49 3.0 /HPF (0.0-6.0) 09/02/18 17:49 3.0 /HPF (0.0-6.0) 09/02/18 17:49 U Epithel Cells (Auto) 7.0 /HPF (0-13.0) 09/02/18 17:49 Few /HPF 09/02/18 17:49 - Imaging and Cardiology EKG: image reviewed (sinus tach 11 3 bpm) Chest x-ray: report reviewed (LUNGS / PLEURA: No significant pulmonary or pleural abnormality. No ), image reviewed Imaging and Cardiology: CT Head: FINDINGS: No previous exams available for comparison. There are scattered areas of decreased attenuation involving the cerebral white matter most consistent with microvascular angiopathy. The findings include the periventricular and subcortical regions at. The ventricular system is within normal limits in size and configuration. There is no CT evidence of acute intracranial hemorrhage or significant mass effect. The visualized paranasal sinuses are clear. All CT scans at this location are performed using the CT dose reduction for ALARA by means of automated exposure control. 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 The findings are were called emergently to the requesting physician at the time the study was completed per the code stroke protocol Assessment and Plan Assessment and plan: 53-year-old -[place] female with history of uncontrolled diabetes type 2, hypertension, hyperlipidemia who presents to [facility] ED complaints of dizziness and hypertension. Stroke alert was initiated. CT Head revealed mild to moderate microvascular angiopathy without CT evidence of acute intracranial hemorrhage. She was elevated by Tele Neuro MD, and she was not a candidate for TPA. CXR did not reveal any acute cardiopulmonary abnormalities. Will admit to Telemetry for further evaluation. R/O Stroke Leukocytosis Hypertensive urgency DM 2 uncontrolled- HgbA1c 13.5 (08/2018) HLD Hx HTN- compliant with medication Nonproductive dry cough-likely lisinopril adverse effect Plan: Continue supportive care Social stroke protocol Neurochecks per stroke protocol Neurology consulted MRI and MRA Brain pending Echocardiogram pending Bilateral carotid duplex pending Monitor BP Patient complains of dry cough since being started on lisinopril, will hold lisinopril Start Norvasc 10 mg daily Continue nifedipine 60 mg twice a day Monitor CBC WBC 19.5 on admission, patient is afebrile Cultures pending Start empiric tx with Zosyn POC BG monitoring SSI Coverage Resume home antiglycemic med: Metformin 500 mg twice a day, Glipizide 10mg BID DVT PPX on Lovenox Advance Directives: No VTE prophylaxis?: Chemical Plan of care discussed with patient/family: Yes
[2018-09-02] MEDS ORDERED: GLUCOTROL PO SCH (22:00)
[2018-09-02] MEDS: COLACE PO SCH (22:03)
[2018-09-02] MEDS: SODIUM CHLORIDE FLUSH SYRINGE 10 ML IV PRN (22:03)
[2018-09-02] MEDS: PROCARDIA XL PO SCH (22:03)
[2018-09-02] MEDS: ZOSYN/NS 3.375GM/50ML 3.375 GM/50 ML BAG IV SCH (22:07)
[2018-09-02] MEDS: HumuLIN R SUB-Q SCH (22:08)
[2018-09-03 06:10] LABS: Alanine Aminotransferase 15 units/L (7-56); Albumin 2.5 g/dL (3.9-5); Chol/HDL Ratio 5.56 %; HDL Cholesterol 23 mg/dL (40-59); LDL Cholesterol,Direct 76 mg/dL (50-130)
[2018-09-03 06:11] LABS: Bilirubin,Direct < 0.2 mg/dL (0-0.2)
[2018-09-03] MEDS: ZOSYN/NS 3.375GM/50ML 3.375 GM/50 ML BAG IV SCH ×3 (06:17→22:24)
[2018-09-03] MEDS: SODIUM CHLORIDE FLUSH SYRINGE 10 ML IV PRN ×2 (06:17→22:24)
[2018-09-03] MEDS: GLUCOPHAGE PO SCH ×2 (08:30→17:39)
[2018-09-03] MEDS: GLUCOTROL PO SCH ×2 (08:35→17:38)
[2018-09-03] MEDS: BABY ASPIRIN PO SCH (09:59)
[2018-09-03] MEDS: COLACE PO SCH ×2 (09:59→22:24)
[2018-09-03] MEDS: PROCARDIA XL PO SCH ×2 (09:59→22:24)
[2018-09-03] MEDS: LOVENOX SUB-Q SCH (10:00)
[2018-09-03] MEDS ORDERED: ASPIRIN PO SCH (10:00)
--- NOTE | 2018-09-03 10:55 | Progress Note ---
Assessment and Plan Assessment and plan: 53-year-old -[place]ames[place] female with history of uncontrolled diabetes type 2, hypertension, hyperlipidemia who presents [facility] ED complaints of dizziness and hypertension. Stroke alert was initiated. CT Head revealed mild to moderate microvascular angiopathy without CT evidence of acute intracranial hemorrhage. She was elevated by Tele Neuro MD, and she was not a candidate for TPA. CXR did not reveal any acute cardiopulmonary abnormalities. Will admit to Telemetry for further evaluation. --Dizziness ; the neurologist recommended to evaluate for acute CVA /R/O Stroke Workup is in progress,neurology following, not a candidate for TPA --Hypertensive urgency; continue current antihypertensives Permissive hypertension per stroke protocol --Type 2 diabetes mellitus; Accu-Chek sliding scale coverage and ADA diet Insulin as needed, A1c 13.5 --Dyslipidemia; statin low-cholesterol diet --Severe Malnutrition: hypoalbuminemia; nutrition supplement/nutrition consult if needed --DVT prophylaxis: lovenox Closely monitor the patient and adjust management as needed Physical therapy occupational and physical rehabilitation Follow negative workup is negative and stable Discharge home in 1-2 days Plan of care is reviewed with the patient, and her nurse History Interval history: Patient seen and examined medical records reviewed Admitted with dizziness , tele neurologist rec stroke evaluation Neuro workup is in progress Vital Signs noted Patient's dizziness significantly improved Hospitalist Physical - Constitutional Vitals: Temp Pulse Resp BP Pulse Ox 98.2 F 98 H 18 119/69 100 09/03/18 08:56 09/03/18 08:56 09/03/18 08:56 09/03/18 08:56 09/03/18 08:56 General appearance: Present: no acute distress, well-nourished - EENT Eyes: Present: PERRL, EOM intact - Neck Neck: Present: supple, normal ROM - Respiratory Respiratory effort: normal Respiratory: bilateral: diminished, negative: rales, rhonchi, wheezing - Cardiovascular Rhythm: regular Heart Sounds: Present: S1 & S2 - Extremities Extremities: no ischemia, No edema - Abdominal General gastrointestinal: soft, non-tender, non-distended, normal bowel sounds - Integumentary Integumentary: Present: clear, warm - Psychiatric Psychiatric: appropriate mood/affect, cooperative - Neurologic Neurologic: CNII-XII intact, no focal deficits, moves all extremities Results - Labs CBC & Chem 7: 09/02/18 17:23 09/02/18 17:23 Labs: Laboratory Last Values WBC 19.5 K/mm3 (4.5-11.0) H 09/02/18 17:23 RBC 3.36 M/mm3 (3.65-5.03) L 09/02/18 17:23 Hgb 9.7 gm/dl (10.1-14.3) L 09/02/18 17:23 Hct 29.0 % (30.3-42.9) L 09/02/18 17:23 MCV 86 fl (79-97) 09/02/18 17:23 MCH 29 pg (28-32) 09/02/18 17:23 MCHC 33 % (30-34) 09/02/18 17:23 RDW 16.1 % (13.2-15.2) H 09/02/18 17:23 Plt Count 521 K/mm3 (140-440) H 09/02/18 17:23 Lymph % (Auto) 18.9 % (13.4-35.0) 09/02/18 17:23 [place] % (Auto) 9.8 % (0.0-7.3) H 09/02/18 17:23 Eos % (Auto) 0.0 % (0.0-4.3) 09/02/18 17:23 Baso % (Auto) 0.6 % (0.0-1.8) 09/02/18 17:23 Lymph # 3.7 K/mm3 (1.2-5.4) 09/02/18 17:23 [place] # 1.9 K/mm3 (0.0-0.8) H 09/02/18 17:23 Eos # 0.0 K/mm3 (0.0-0.4) 09/02/18 17:23 Baso # 0.1 K/mm3 (0.0-0.1) 09/02/18 17:23 Seg Neutrophils % 70.7 % (40.0-70.0) H 09/02/18 17:23 Seg Neutrophils # 13.7 K/mm3 (1.8-7.7) H 09/02/18 17:23 PT 14.1 Sec. (12.2-14.9) 09/02/18 17:23 INR 1.12 (0.87-1.13) 09/02/18 17:23 APTT 45.4 Sec. (24.2-36.6) H 09/02/18 17:23 19.2 Sec. (15.1-19.6) 09/02/18 17:23 Sodium 132 mmol/L (137-145) L 09/02/18 17:23 Potassium 4.8 mmol/L (3.6-5.0) 09/02/18 17:23 Chloride 91.5 mmol/L (98-107) L 09/02/18 17:23 Carbon Dioxide 23 mmol/L (22-30) 09/02/18 17:23 22 mmol/L 09/02/18 17:23 BUN 15 mg/dL (7-17) 09/02/18 17:23 1.3 mg/dL (0.7-1.2) H 09/02/18 17:23 Estimated GFR 52 ml/min 09/02/18 17:23 12 % 09/02/18 17:23 Glucose 134 mg/dL (65-100) H 09/02/18 17:23 POC Glucose 83 (70-105) 09/03/18 09:31 Calcium 9.6 mg/dL (8.4-10.2) 09/02/18 17:23 0.30 mg/dL (0.1-1.2) 09/03/18 05:22 < 0.2 mg/dL (0-0.2) 09/03/18 05:22 0.1 mg/dL 09/03/18 05:22 AST 17 units/L (5-40) 09/03/18 05:22 ALT 15 units/L (7-56) 09/03/18 05:22 245 units/L (35-129) H 09/03/18 05:22 26 units/L (30-135) L 09/02/18 17:23 CK-MB (CK-2) < 1.0 ng/mL (0.0-4.0) 09/02/18 17:23 CK-MB (CK-2) Rel Index 3.8 (0-4) 09/02/18 17:23 < 0.010 ng/mL (0.00-0.029) 09/02/18 17:23 8.0 g/dL (6.3-8.2) 09/03/18 05:22 2.5 g/dL (3.9-5) L 09/03/18 05:22 0.5 % 09/03/18 05:22 Triglycerides 184 mg/dL (2-149) H 09/03/18 05:22 Cholesterol 128 mg/dL (50-199) 09/03/18 05:22 76 mg/dL (50-130) 09/03/18 05:22 23 mg/dL (40-59) L 09/03/18 05:22 5.56 % 09/03/18 05:22 Yellow (Yellow) 09/02/18 17:49 Clear (Clear) 09/02/18 17:49 6.0 (5.0-7.0) 09/02/18 17:49 Ur Specific [place] 1.005 (1.003-1.030) 09/02/18 17:49 <15 mg/dl mg/dL (Negative) 09/02/18 17:49 Neg mg/dL (Negative) 09/02/18 17:49 Neg mg/dL (Negative) 09/02/18 17:49 Neg (Negative) 09/02/18 17:49 Neg (Negative) 09/02/18 17:49 Neg (Negative) 09/02/18 17:49 < 2.0 mg/dL (<2.0) 09/02/18 17:49 Ur Leukocyte Esterase Tr (Negative) 09/02/18 17:49 3.0 /HPF (0.0-6.0) 09/02/18 17:49 3.0 /HPF (0.0-6.0) 09/02/18 17:49 U Epithel Cells (Auto) 7.0 /HPF (0-13.0) 09/02/18 17:49 Few /HPF 09/02/18 17:49 Active Medications - Current Medications Current Medications: Generic Name Dose Route Start Last Admin Trade Name Freq PRN Reason Stop Dose Admin Acetaminophen 650 mg 09/02/18 19:52 Tylenol PO Q4H PRN Pain, Mild (1-3) Amlodipine Besylate 10 mg 09/03/18 10:00 Norvasc PO QDAY MARIA ESHTER Aspirin 81 mg 09/03/18 10:00 09/03/18 09:59 Baby Aspirin PO 81 mg QDAY MARIA ESTHER Administration Atorvastatin Calcium 40 mg 09/02/18 22:00 09/02/18 22:03 Lipitor PO 40 mg QHS MARIA ESTHER Administration Dextrose 50 ml 09/02/18 20:03 D50w (25gm) Syringe IV PRN PRN Hypoglycemia Docusate Sodium 100 mg 09/02/18 22:00 09/03/18 09:59 Colace PO 100 mg BID MARIA ESTHER Administration Enoxaparin Sodium 40 mg 09/03/18 10:00 09/03/18 10:00 Lovenox SUB-Q 40 mg QDAY [facility] Administration Glipizide 10 mg 09/03/18 08:00 09/03/18 08:35 Glucotrol PO 10 mg BIDDIAB [facility] Administration Piperacillin Sod/Tazobactam Sod 3.375 gm in 50 mls @ 100 mls/hr 09/02/18 22:00 09/03/18 06:17 Zosyn/Ns 3.375gm/50ml IV 100 mls/hr Q8HR [facility] Administration Protocol Insulin Human Regular 0 units 09/02/18 22:00 09/02/18 22:08 Humulin R SUB-Q Not Given ACHS [facility] Protocol Magnesium Hydroxide 30 ml 09/02/18 19:52 Milk Of Magnesia PO Q4H PRN Constipation Metformin HCl 500 mg 09/03/18 08:00 09/03/18 08:30 Glucophage PO 500 mg BIDDIAB MARIA ESTHER Administration Nifedipine 60 mg 09/02/18 22:00 09/03/18 09:59 Procardia Xl PO 60 mg Q12HR MARIA ESTHER Administration Ondansetron HCl 4 mg 09/02/18 19:52 Zofran IV Q8H PRN Nausea And Vomiting Sodium Chloride 10 ml 09/02/18 19:52 09/03/18 06:17 Sodium Chloride Flush Syringe 10 Ml IV 10 ml PRN PRN Administration LINE FLUSH
[2018-09-03] MEDS: HumuLIN R SUB-Q SCH ×4 (10:59→22:42)
--- NOTE | 2018-09-03 11:45 | XRay Report ---
LUMBOSACRAL SPINE, 2 VIEWS PELVIS AP VIEW INDICATION: r/o foreign body [for MRI ]. COMPARISON: None. IMPRESSION: Views of the lumbar spine demonstrate normal height and alignment of the vertebral bodies. The disc s paces are preserved. Minimal diffuse facet arthropathy is identified. No acute injury or radiopaque f oreign body is identified. AP view of the pelvis demonstrates no acute osseous abnormality or joint pathology. No radiopaque for eign body. Osteopenia is evident. Signer Name: Alejandro Godwin Jr, MD Signed: 09/03/2018 11:41 AM Workstation Name: [id number]
[2018-09-03] MEDS: NORVASC PO SCH (12:00)
--- NOTE | 2018-09-03 12:28 | Vascular Lab Report ---
BILATERAL CAROTID DOPPLER ULTRASOUND INDICATION : stroke TECHNIQUE: Grayscale and color Doppler imaging performed through the neck. COMPARISON: None FINDINGS: Right: There is minimal partially calcified plaque in the carotid bulb. Peak systolic velocity in t he CCA is 93 cm/s with end-diastolic velocity of 22 cm/s. Peak systolic velocity in the proximal ICA is 111 cm/s with end-diastolic velocity of 41 cm/s. ICA to CCA ratio is less than 2. There is antegra de flow in the ECA and the vertebral artery. Left: There is mild partially calcified plaque in the carotid bulb. Peak systolic velocity in the CCA is 114 cm/s with end-diastolic velocity of 16 cm/s. Peak systolic velocity in the proximal ICA is 10 0 cm/s with end-diastolic velocity of 32 cm/s. ICA to CCA ratio is less than 2. There is antegrade f low in the ECA and the vertebral artery. IMPRESSION: No hemodynamically significant stenosis by NASCET criteria. Signer Name: Alejandro Godwin Jr, MD Signed: 09/03/2018 12:23 PM Workstation Name: [id number]
--- NOTE | 2018-09-03 16:07 | Magnetic Resonance Report ---
MR BRAIN WITHOUT CONTRAST, MRA HEAD WITHOUT CONTRAST HISTORY: Cerebrovascular accident. COMPARISON: Head CT 09/02/2018. TECHNIQUE: Multiplanar, multi sequential MRI images of the brain, obtained without contrast. Routine MRA of the head is performed. 3-D/MIP reformats postprocessed. CONTRAST: None. FINDINGS: MR BRAIN: Multiple small (less than 5 mm diameter) foci of restricted diffusion are identified involving both c erebellar hemispheres, the right middle cerebellar peduncle, the john and medial aspect of the right parietal lobe. These findings are all in a posterior circulation distribution. Possibility of an embo lic event to the posterior circulation should be considered. There is no indication of hemorrhagic tr ansformation. Brain and Intracranial Contents: No evidence of mass or mass effect. No midline shift. No acute hem orrhage. Ventricles normal in size and configuration for age. No extra-axial fluid collection. Visualized Orbits: No significant abnormality. Visualized Paranasal Sinuses: No significant abnormality. Additional Findings: None MRA HEAD: Intracranial vertebral arteries: No significant abnormality. Basilar artery: No significant abnormality. Posterior cerebral arteries: No significant abnormality. Intracranial internal carotid arteries: No significant abnormality. Anterior cerebral arteries: No significant abnormality. Middle cerebral arteries: No significant abnormality. IMPRESSION: 1. Multifocal small subacute or acute infarctions involving the posterior circulation as noted above. 2. No indication of hemorrhagic transformation. Signer Name: Omar Rivera MD Signed: 09/03/2018 4:02 PM Workstation Name: [email or web address]
--- NOTE | 2018-09-03 18:28 | Progress Note ---
Assessment and Plan This is a 53 YO F with embolic stroke Recommend: add Plavix to baby aspirin, continue statin, VTE prophylaxis PT/OT/ST SHELBIE MRI/A, carotids, TTE reviewed If SHELBIE negative consider loop recorder to look for paroxysmal atrial fibrillation at discharge Continue care for all medical issues as you are doing Subjective Date of service: 09/03/18 Interval history: Pt evaluated by teleneuro. Not a candidate for altelplase. Had embolic stroke posterior circulation. TAkes aspirin daily at home. Only remaining symptom is tingling in her fingertips. Objective - Vital Sign Vital Signs - 12hr 09/03/18 09/03/18 09/03/18 08:56 10:00 12:00 Temperature 98.2 F Pulse Rate 98 H 85 Respiratory 18 Rate Blood Pressure 119/69 121/76 Blood Pressure [Left] O2 Sat by Pulse 100 99 Oximetry 09/03/18 09/03/18 12:43 16:45 Temperature 98.2 F 98.5 F Pulse Rate 100 H 100 H Respiratory 18 18 Rate Blood Pressure Blood Pressure 121/76 143/85 [Left] O2 Sat by Pulse 98 Oximetry - General Apperance Constitutional: comfortable - EENT EENT: mucous membranes moist - Respiratory Respiratory: lungs clear, normal breath sounds - Cardiovascular Cardiovascular: regular rate Extremities: no peripheral edema bilat - Gastrointestinal Gastrointestinal: normoactive bowel sounds - Neurologic Cranial nerve examination: PERRL, EOMI, face symmetric, tongue midline Speech examination: intact Motor examination - right side: 5/5: biceps, triceps, wrist flexion, wrist extension, correctional facility nurse, hip flexors, knee extensors, dorsiflexion, toe extension (EHL), plantarflexion Motor examination - left side: 5/5: biceps, triceps, wrist flexion, wrist extension, correctional facility nurse, hip flexors, knee extensors, dorsiflexion, toe extension (EHL), plantarflexion Detailed sensory examination: light touch, temperature Reflex and gait examination: intact Reflexes: 1+: ankle, bicep, knee, tricep - Psychiatric Psychiatric: mood/affect appropriate - Laboratory Findings CBC and BMP: 09/02/18 17:23 09/02/18 17:23 Abnormal Lab Findings: Abnormal Labs 09/02/18 09/02/18 09/02/18 17:17 17:23 17:23 WBC 19.5 H RBC 3.36 L Hgb 9.7 L Hct 29.0 L RDW 16.1 H Plt Count 521 H [place] % (Auto) 9.8 H [place] # 1.9 H Seg Neutrophils % 70.7 H Seg Neutrophils # 13.7 H APTT 45.4 H Sodium Chloride Creatinine Glucose POC Glucose 161 H Alkaline Phosphatase Total Creatine Kinase Total Protein Albumin Triglycerides HDL Cholesterol 09/02/18 09/02/18 09/02/18 17:23 17:23 22:00 WBC RBC Hgb Hct RDW Plt Count [place] % (Auto) [place] # Seg Neutrophils % Seg Neutrophils # APTT Sodium 132 L Chloride 91.5 L Creatinine 1.3 H Glucose 134 H POC Glucose 150 H Alkaline Phosphatase 260 H Total Creatine Kinase 26 L Total Protein 9.1 H Albumin 3.4 L Triglycerides HDL Cholesterol 09/03/18 05:22 WBC RBC Hgb Hct RDW Plt Count [place] % (Auto) [place] # Seg Neutrophils % Seg Neutrophils # APTT Sodium Chloride Creatinine Glucose POC Glucose Alkaline Phosphatase 245 H Total Creatine Kinase Total Protein Albumin 2.5 L Triglycerides 184 H HDL Cholesterol 23 L
[2018-09-03] MEDS: PLAVIX PO SCH (22:36)
[2018-09-04] MEDS: ZOSYN/NS 3.375GM/50ML 3.375 GM/50 ML BAG IV SCH ×3 (05:15→21:23)
[2018-09-04] MEDS: SODIUM CHLORIDE FLUSH SYRINGE 10 ML IV PRN ×3 (05:16→21:37)
[2018-09-04] MEDS: ROBITUSSIN PO PRN ×2 (05:19→21:23)
[2018-09-04] MEDS: HumuLIN R SUB-Q SCH ×4 (10:36→23:53)
[2018-09-04] MEDS: COLACE PO SCH ×2 (10:38→21:22)
[2018-09-04] MEDS: BABY ASPIRIN PO SCH (10:38)
[2018-09-04] MEDS: LOVENOX SUB-Q SCH ×2 (10:38→21:22)
[2018-09-04] MEDS: PROCARDIA XL PO SCH ×2 (10:38→21:26)
[2018-09-04] MEDS: PLAVIX PO SCH (10:38)
[2018-09-04] MEDS: NORVASC PO SCH (10:38)
--- NOTE | 2018-09-04 10:59 | Progress Note ---
Assessment and Plan Assessment and plan: 53-year-old -[place] female with history of uncontrolled diabetes type 2, hypertension, hyperlipidemia who [facility] complaints of dizziness and hypertension. Stroke alert was initiated. CT Head revealed mild to moderate microvascular angiopathy without CT evidence of acute intracranial hemorrhage. She was elevated by Tele Neuro MD, and she was not a candidate for TPA. CXR did not reveal any acute cardiopulmonary abnormalities. Will admit to Telemetry for further evaluation. --Embolic CVA; patient has no history of A. fib Echocardiogram no ASD or shunt, probably paroxysmal A. fib Full dose anticoagulation with Lovenox, cardiology consult and SHELBIE. Possible event monitor to rule out cardiac illness/paroxysmal A. fib flutter --Dizziness ; present on admission not a candidate for TPA Neurology workup: CT head without contrast; [id number] microvascular angiopathy no evidence of acute intracranial hemorrhage MRI brain; multiple small less than 5 mL diameter foci of restricted diffusion identified involving both cerebellar hemispheres and right middle cerebral artery peduncle john and middle aspects of the right parietal lobe, embolic CVA MRA brain; no significant abnormality of intracranial vertebral arteriesto treat posterior cerebral arteries No abnormality in Intracranial internal carotid arteries Echocardiogram patent foramen ovale Moderate LVH EF 60-65% Carotid Doppler; no significant stenosis; --Hypertensive urgency; continue current antihypertensives Permissive hypertension per stroke protocol --Type 2 diabetes mellitus; Accu-Chek sliding scale coverage and ADA diet Insulin as needed, A1c 13.5 --Dyslipidemia; statin low-cholesterol diet --Severe Malnutrition: hypoalbuminemia; nutrition supplement/nutrition consult if needed --DVT prophylaxis: lovenox Closely monitor the patient and adjust management as needed Physical therapy occupational and physical rehabilitation Follow SHELBIE, cardiology evaluation and recommendations Plan of care is reviewed with the patient and her nurse History Interval history: Patient seen and examined medical records reviewed Admitted with severe dizziness and strokelike symptoms Mother of the brain consistent with embolic CVA Recent complaints of generalized weakness Denies any headache or dizziness Vital signs noted Hospitalist Physical - Constitutional Vitals: Temp Pulse Resp BP Pulse Ox 98.4 F 92 H 20 145/91 96 09/04/18 00:00 09/04/18 00:00 09/04/18 02:06 09/04/18 00:00 09/04/18 00:00 General appearance: Present: no acute distress, well-nourished - EENT Eyes: Present: PERRL, EOM intact - Neck Neck: Present: supple, normal ROM - Respiratory Respiratory effort: normal Respiratory: bilateral: diminished, negative: rales, rhonchi, wheezing - Cardiovascular Rhythm: regular Heart Sounds: Present: S1 & S2 - Extremities Extremities: no ischemia, No edema - Abdominal General gastrointestinal: soft, non-tender, non-distended, normal bowel sounds - Integumentary Integumentary: Present: clear, warm - Psychiatric Psychiatric: appropriate mood/affect, cooperative - Neurologic Neurologic: CNII-XII intact, moves all extremities Results - Labs CBC & Chem 7: 09/02/18 17:23 09/02/18 17:23 Labs: Laboratory Last Values WBC 19.5 K/mm3 (4.5-11.0) H 09/02/18 17:23 RBC 3.36 M/mm3 (3.65-5.03) L 09/02/18 17:23 Hgb 9.7 gm/dl (10.1-14.3) L 09/02/18 17:23 Hct 29.0 % (30.3-42.9) L 09/02/18 17:23 MCV 86 fl (79-97) 09/02/18 17:23 MCH 29 pg (28-32) 09/02/18 17:23 MCHC 33 % (30-34) 09/02/18 17:23 RDW 16.1 % (13.2-15.2) H 09/02/18 17:23 Plt Count 521 K/mm3 (140-440) H 09/02/18 17:23 Lymph % (Auto) 18.9 % (13.4-35.0) 09/02/18 17:23 [place] % (Auto) 9.8 % (0.0-7.3) H 09/02/18 17:23 Eos % (Auto) 0.0 % (0.0-4.3) 09/02/18 17:23 Baso % (Auto) 0.6 % (0.0-1.8) 09/02/18 17:23 Lymph # 3.7 K/mm3 (1.2-5.4) 09/02/18 17:23 [place] # 1.9 K/mm3 (0.0-0.8) H 09/02/18 17:23 Eos # 0.0 K/mm3 (0.0-0.4) 09/02/18 17:23 Baso # 0.1 K/mm3 (0.0-0.1) 09/02/18 17:23 Seg Neutrophils % 70.7 % (40.0-70.0) H 09/02/18 17:23 Seg Neutrophils # 13.7 K/mm3 (1.8-7.7) H 09/02/18 17:23 PT 14.1 Sec. (12.2-14.9) 09/02/18 17:23 INR 1.12 (0.87-1.13) 09/02/18 17:23 APTT 45.4 Sec. (24.2-36.6) H 09/02/18 17:23 19.2 Sec. (15.1-19.6) 09/02/18 17:23 Sodium 132 mmol/L (137-145) L 09/02/18 17:23 Potassium 4.8 mmol/L (3.6-5.0) 09/02/18 17:23 Chloride 91.5 mmol/L (98-107) L 09/02/18 17:23 Carbon Dioxide 23 mmol/L (22-30) 09/02/18 17:23 22 mmol/L 09/02/18 17:23 BUN 15 mg/dL (7-17) 09/02/18 17:23 1.3 mg/dL (0.7-1.2) H 09/02/18 17:23 Estimated GFR 52 ml/min 09/02/18 17:23 12 % 09/02/18 17:23 Glucose 134 mg/dL (65-100) H 09/02/18 17:23 POC Glucose 186 (70-105) H 09/03/18 20:55 Calcium 9.6 mg/dL (8.4-10.2) 09/02/18 17:23 0.30 mg/dL (0.1-1.2) 09/03/18 05:22 < 0.2 mg/dL (0-0.2) 09/03/18 05:22 0.1 mg/dL 09/03/18 05:22 AST 17 units/L (5-40) 09/03/18 05:22 ALT 15 units/L (7-56) 09/03/18 05:22 245 units/L (35-129) H 09/03/18 05:22 26 units/L (30-135) L 09/02/18 17:23 CK-MB (CK-2) < 1.0 ng/mL (0.0-4.0) 09/02/18 17:23 CK-MB (CK-2) Rel Index 3.8 (0-4) 09/02/18 17:23 < 0.010 ng/mL (0.00-0.029) 09/02/18 17:23 8.0 g/dL (6.3-8.2) 09/03/18 05:22 2.5 g/dL (3.9-5) L 09/03/18 05:22 0.5 % 09/03/18 05:22 Triglycerides 184 mg/dL (2-149) H 09/03/18 05:22 Cholesterol 128 mg/dL (50-199) 09/03/18 05:22 76 mg/dL (50-130) 09/03/18 05:22 23 mg/dL (40-59) L 09/03/18 05:22 5.56 % 09/03/18 05:22 Yellow (Yellow) 09/02/18 17:49 Clear (Clear) 09/02/18 17:49 6.0 (5.0-7.0) 09/02/18 17:49 Ur Specific [place] 1.005 (1.003-1.030) 09/02/18 17:49 <15 mg/dl mg/dL (Negative) 09/02/18 17:49 Neg mg/dL (Negative) 09/02/18 17:49 Neg mg/dL (Negative) 09/02/18 17:49 Neg (Negative) 09/02/18 17:49 Neg (Negative) 09/02/18 17:49 Neg (Negative) 09/02/18 17:49 < 2.0 mg/dL (<2.0) 09/02/18 17:49 Ur Leukocyte Esterase Tr (Negative) 09/02/18 17:49 3.0 /HPF (0.0-6.0) 09/02/18 17:49 3.0 /HPF (0.0-6.0) 09/02/18 17:49 U Epithel Cells (Auto) 7.0 /HPF (0-13.0) 09/02/18 17:49 Few /HPF 09/02/18 17:49 Active Medications - Current Medications Current Medications: Generic Name Dose Route Start Last Admin Trade Name Freq PRN Reason Stop Dose Admin Acetaminophen 650 mg 09/02/18 19:52 Tylenol PO Q4H PRN Pain, Mild (1-3) Amlodipine Besylate 10 mg 09/03/18 10:00 09/04/18 10:38 Norvasc PO 10 mg QDAY MARIA ESTHER Administration Aspirin 81 mg 09/03/18 10:00 09/04/18 10:38 Baby Aspirin PO 81 mg QDAY MARIA ESTHER Administration Atorvastatin Calcium 40 mg 09/02/18 22:00 09/03/18 22:24 Lipitor PO 40 mg QHS MARIA ESTHER Administration Clopidogrel Bisulfate 75 mg 09/03/18 19:00 09/04/18 10:38 Plavix PO 75 mg QDAY MARIA ESTHER Administration Dextrose 50 ml 09/02/18 20:03 D50w (25gm) Syringe IV PRN PRN Hypoglycemia Docusate Sodium 100 mg 09/02/18 22:00 09/04/18 10:38 Colace PO 100 mg BID MARIA ESTHER Administration Enoxaparin Sodium 40 mg 09/03/18 10:00 09/04/18 10:38 Lovenox SUB-Q 40 mg QDAY MARIA ESTHER Administration Glipizide 10 mg 09/03/18 08:00 09/03/18 17:38 Glucotrol PO 10 mg BIDDIAB MARIA ESTHER Administration Guaifenesin 200 mg 09/03/18 23:25 09/04/18 05:19 Robitussin PO 200 mg Q4H PRN Administration Cough Piperacillin Sod/Tazobactam Sod 3.375 gm in 50 mls @ 100 mls/hr 09/02/18 22:00 09/04/18 05:15 Zosyn/Ns 3.375gm/50ml IV 100 mls/hr Q8HR MARIA ESTHER Administration Protocol Insulin Human Regular 0 units 09/02/18 22:00 09/04/18 10:36 Humulin R SUB-Q Not Given ACHS [facility] Protocol Magnesium Hydroxide 30 ml 09/02/18 19:52 Milk Of Magnesia PO Q4H PRN Constipation Metformin HCl 500 mg 09/03/18 08:00 09/03/18 17:39 Glucophage PO 500 mg BIDDIAB MARIA ESTHER Administration Nifedipine 60 mg 09/02/18 22:00 09/04/18 10:38 Procardia Xl PO 60 mg Q12HR MARIA ESTHER Administration Ondansetron HCl 4 mg 09/02/18 19:52 Zofran IV Q8H PRN Nausea And Vomiting Sodium Chloride 10 ml 09/02/18 19:52 09/04/18 05:16 Sodium Chloride Flush Syringe 10 Ml IV 10 ml PRN PRN Administration LINE FLUSH Nutrition/Malnutrition Assess - Dietary Evaluation Nutrition/Malnutrition Findings: Nutrition Notes Start: 09/03/18 19:03 Freq: Status: Active Protocol: Document 09/03/18 19:03 RM (Rec: 09/03/18 19:09 RM [id number]) Nutrition Notes Need for Assessment generated from: MD Order Initial or Follow up Assessment Current Diagnosis Diabetes,Hypertension, Hyperlipidemia Current Diet Cardiac/Consistent CHO Labs/Tests A1c 13.5 Pertinent Medications Reviewed Height 5 ft 6 in Weight 69 kg [place] Body Weight (kg) 59.09 BMI 24.5 Subjective/Other Information Consulted for nutrition recommendation and poor intake . Pt stated that her appetite is poor but improving. Stated that she eats everything from her meals except for the meat. Reviewed DM diet education. Gave handout. Burn Absent Trauma Absent #2 Nutrition Diagnosis Food and nutrition-related knowledge deficit Etiology lack of prior education As Evidenced by Signs and Symptoms no prior knowledge of need for food and nutrition recommendations #1 Nutrition Diagnosis Inadequate protein intake Etiology pt preferences As Evidenced by Signs and Symptoms pt statement that she eats everything from her meals but the meat Is patient on ventilator? No Is Patient Ambulatory and/or Out of Bed Yes REE-([place]-St. Jeor-ambulatory/OOB) [ 1711.775 NUTR.MSJOOB] Calculation Used for Recommendations [facility] Additional Notes Protein Needs: 55-69g (0.8-1g/ kg) Fluid Needs: 1 ml/kcal Nutrition Intervention Change Diet Order: Continue current Add Supplement/Snack (indicate name/kcal Glucerna Chocolate 1 daily /protein ) Provides kCal: 220 Provides Protein (gm) 10 Teaching Recipient Patient Learning Readiness Good Teaching Methods Discussion,Handout Response to Teaching Verbalize understanding Education Handouts Provided Carbohydrate counting for people with diabetes Barriers to Learning No Barriers RD phone number provided Yes Patient aware of follow up options Yes Goal #1 Meet at least 75% of calorie and protein needs via PO and ONS intakes Goal #2 Utilize carbohydrate counting Anticipated Discharge Needs: Cardiac/Consistent CHO diet Follow-Up By: 09/08/18 Additional Comments Follow for PO and ONS intakes
[2018-09-04] MEDS: GLUCOPHAGE PO SCH (13:28)
[2018-09-04] MEDS: GLUCOTROL PO SCH (13:28)
[2018-09-05] MEDS: ZOSYN/NS 3.375GM/50ML 3.375 GM/50 ML BAG IV SCH ×3 (05:42→22:30)
[2018-09-05] MEDS: SODIUM CHLORIDE FLUSH SYRINGE 10 ML IV PRN ×2 (05:43→22:34)
[2018-09-05] MEDS: GLUCOTROL PO SCH ×3 (08:00→20:01)
[2018-09-05] MEDS: GLUCOPHAGE PO SCH ×3 (08:00→20:01)
[2018-09-05] MEDS: HumuLIN R SUB-Q SCH ×4 (08:28→22:45)
[2018-09-05] MEDS: COLACE PO SCH ×2 (10:00→22:31)
--- NOTE | 2018-09-05 12:08 | Progress Note ---
Assessment and Plan Assessment and plan: 53-year-old -[place] female with history of uncontrolled diabetes type 2, hypertension, hyperlipidemia who presents to [facility] ED complaints of dizziness and hypertension. Stroke alert was initiated. CT Head revealed mild to moderate microvascular angiopathy without CT evidence of acute intracranial hemorrhage. She was elevated by Tele Neuro MD, and she was not a candidate for TPA. CXR did not reveal any acute cardiopulmonary abnormalities. Will admit to Telemetry for further evaluation. --Embolic CVA; patient has no history of A. fib Echocardiogram no ASD or shunt, probably paroxysmal A. fib Full dose anticoagulation with Lovenox, cardiology consult and SHELBIE. Possible event monitor to rule out cardiac illness/paroxysmal A. fib flutter --Dizziness ; present on admission not a candidate for TPA Neurology workup: CT head without contrast; [id number] microvascular angiopathy no evidence of acute intracranial hemorrhage MRI brain; multiple small less than 5 mL diameter foci of restricted diffusion identified involving both cerebellar hemispheres and right middle cerebral artery peduncle john and middle aspects of the right parietal lobe, embolic CVA MRA brain; no significant abnormality of intracranial vertebral arteriesto treat posterior cerebral arteries No abnormality in Intracranial internal carotid arteries Echocardiogram patent foramen ovale Moderate LVH EF 60-65% Carotid Doppler; no significant stenosis; --Hypertensive urgency; continue current antihypertensives Permissive hypertension per stroke protocol --Type 2 diabetes mellitus; Accu-Chek sliding scale coverage and ADA diet Insulin as needed, A1c 13.5 --Dyslipidemia; statin low-cholesterol diet --Severe Malnutrition: hypoalbuminemia; nutrition supplement/nutrition consult if needed --DVT prophylaxis: lovenox Closely monitor the patient and adjust management as needed Physical therapy occupational and physical rehabilitation Follow SHELBIE, cardiology evaluation and recommendations Plan of care is reviewed with the patient and her nurse History Interval history: Patient seen and examined and chart reviewed Patient complains of generalized weakness No focal deficits, no workup consistent with embolic CVA Pending SHELBIE/cardiology evaluation Vital signs noted Hospitalist Physical - Constitutional Vitals: Temp Pulse Resp BP Pulse Ox 98.4 F 97 H 18 125/74 97 09/05/18 07:26 09/05/18 03:32 09/05/18 07:26 09/05/18 07:26 09/05/18 03:32 General appearance: Present: no acute distress, well-nourished - EENT Eyes: Present: PERRL, EOM intact - Neck Neck: Present: supple, normal ROM - Respiratory Respiratory effort: normal Respiratory: bilateral: diminished, negative: rales, rhonchi, wheezing - Cardiovascular Rhythm: regular Heart Sounds: Present: S1 & S2 - Extremities Extremities: no ischemia, No edema - Abdominal General gastrointestinal: soft, non-tender, non-distended, normal bowel sounds - Integumentary Integumentary: Present: clear, warm - Psychiatric Psychiatric: appropriate mood/affect, cooperative - Neurologic Neurologic: CNII-XII intact, moves all extremities Results - Labs CBC & Chem 7: 09/02/18 17:23 09/02/18 17:23 Labs: Laboratory Last Values WBC 19.5 K/mm3 (4.5-11.0) H 09/02/18 17:23 RBC 3.36 M/mm3 (3.65-5.03) L 09/02/18 17:23 Hgb 9.7 gm/dl (10.1-14.3) L 09/02/18 17:23 Hct 29.0 % (30.3-42.9) L 09/02/18 17:23 MCV 86 fl (79-97) 09/02/18 17:23 MCH 29 pg (28-32) 09/02/18 17:23 MCHC 33 % (30-34) 09/02/18 17:23 RDW 16.1 % (13.2-15.2) H 09/02/18 17:23 Plt Count 521 K/mm3 (140-440) H 09/02/18 17:23 Lymph % (Auto) 18.9 % (13.4-35.0) 09/02/18 17:23 [place] % (Auto) 9.8 % (0.0-7.3) H 09/02/18 17:23 Eos % (Auto) 0.0 % (0.0-4.3) 09/02/18 17:23 Baso % (Auto) 0.6 % (0.0-1.8) 09/02/18 17:23 Lymph # 3.7 K/mm3 (1.2-5.4) 09/02/18 17:23 [place] # 1.9 K/mm3 (0.0-0.8) H 09/02/18 17:23 Eos # 0.0 K/mm3 (0.0-0.4) 09/02/18 17:23 Baso # 0.1 K/mm3 (0.0-0.1) 09/02/18 17:23 Seg Neutrophils % 70.7 % (40.0-70.0) H 09/02/18 17:23 Seg Neutrophils # 13.7 K/mm3 (1.8-7.7) H 09/02/18 17:23 PT 14.1 Sec. (12.2-14.9) 09/02/18 17:23 INR 1.12 (0.87-1.13) 09/02/18 17:23 APTT 45.4 Sec. (24.2-36.6) H 09/02/18 17:23 19.2 Sec. (15.1-19.6) 09/02/18 17:23 Sodium 132 mmol/L (137-145) L 09/02/18 17:23 Potassium 4.8 mmol/L (3.6-5.0) 09/02/18 17:23 Chloride 91.5 mmol/L (98-107) L 09/02/18 17:23 Carbon Dioxide 23 mmol/L (22-30) 09/02/18 17:23 22 mmol/L 09/02/18 17:23 BUN 15 mg/dL (7-17) 09/02/18 17:23 1.3 mg/dL (0.7-1.2) H 09/02/18 17:23 Estimated GFR 52 ml/min 09/02/18 17:23 12 % 09/02/18 17:23 Glucose 134 mg/dL (65-100) H 09/02/18 17:23 POC Glucose 186 (70-105) H 09/03/18 20:55 Calcium 9.6 mg/dL (8.4-10.2) 09/02/18 17:23 0.30 mg/dL (0.1-1.2) 09/03/18 05:22 < 0.2 mg/dL (0-0.2) 09/03/18 05:22 0.1 mg/dL 09/03/18 05:22 AST 17 units/L (5-40) 09/03/18 05:22 ALT 15 units/L (7-56) 09/03/18 05:22 245 units/L (35-129) H 09/03/18 05:22 26 units/L (30-135) L 09/02/18 17:23 CK-MB (CK-2) < 1.0 ng/mL (0.0-4.0) 09/02/18 17:23 CK-MB (CK-2) Rel Index 3.8 (0-4) 09/02/18 17:23 < 0.010 ng/mL (0.00-0.029) 09/02/18 17:23 8.0 g/dL (6.3-8.2) 09/03/18 05:22 2.5 g/dL (3.9-5) L 09/03/18 05:22 0.5 % 09/03/18 05:22 Triglycerides 184 mg/dL (2-149) H 09/03/18 05:22 Cholesterol 128 mg/dL (50-199) 09/03/18 05:22 76 mg/dL (50-130) 09/03/18 05:22 23 mg/dL (40-59) L 09/03/18 05:22 5.56 % 09/03/18 05:22 Yellow (Yellow) 09/02/18 17:49 Clear (Clear) 09/02/18 17:49 6.0 (5.0-7.0) 09/02/18 17:49 Ur Specific [place] 1.005 (1.003-1.030) 09/02/18 17:49 <15 mg/dl mg/dL (Negative) 09/02/18 17:49 Neg mg/dL (Negative) 09/02/18 17:49 Neg mg/dL (Negative) 09/02/18 17:49 Neg (Negative) 09/02/18 17:49 Neg (Negative) 09/02/18 17:49 Neg (Negative) 09/02/18 17:49 < 2.0 mg/dL (<2.0) 09/02/18 17:49 Ur Leukocyte Esterase Tr (Negative) 09/02/18 17:49 3.0 /HPF (0.0-6.0) 09/02/18 17:49 3.0 /HPF (0.0-6.0) 09/02/18 17:49 U Epithel Cells (Auto) 7.0 /HPF (0-13.0) 09/02/18 17:49 Few /HPF 09/02/18 17:49 Active Medications - Current Medications Current Medications: Generic Name Dose Route Start Last Admin Trade Name Freq PRN Reason Stop Dose Admin Acetaminophen 650 mg 09/02/18 19:52 Tylenol PO Q4H PRN Pain, Mild (1-3) Amlodipine Besylate 10 mg 09/03/18 10:00 09/04/18 10:38 Norvasc PO 10 mg QDAY MARIA ESTHER Administration Aspirin 81 mg 09/03/18 10:00 09/04/18 10:38 Baby Aspirin PO 81 mg QDAY MARIA ESTHER Administration Atorvastatin Calcium 40 mg 09/02/18 22:00 09/04/18 21:22 Lipitor PO 40 mg QHS MARIA ESTHER Administration Clopidogrel Bisulfate 75 mg 09/03/18 19:00 09/04/18 10:38 Plavix PO 75 mg QDAY MARIA ESTHER Administration Dextrose 50 ml 09/02/18 20:03 D50w (25gm) Syringe IV PRN PRN Hypoglycemia Docusate Sodium 100 mg 09/02/18 22:00 09/04/18 21:22 Colace PO 100 mg BID MARIA ESTHER Administration Enoxaparin Sodium 70 mg 09/04/18 22:00 09/04/18 21:22 Lovenox 1 mg/kg (70 mg) 70 mg SUB-Q Administration Q12HR [facility] Glipizide 10 mg 09/03/18 08:00 09/04/18 13:28 Glucotrol PO 10 mg BIDDIAB MARIA ESTHER Administration Guaifenesin 200 mg 09/03/18 23:25 09/04/18 21:23 Robitussin PO 200 mg Q4H PRN Administration Cough Piperacillin Sod/Tazobactam Sod 3.375 gm in 50 mls @ 100 mls/hr 09/02/18 22:00 09/05/18 05:42 Zosyn/Ns 3.375gm/50ml IV 100 mls/hr Q8HR MARIA ESTHER Administration Protocol Insulin Human Regular 0 units 09/02/18 22:00 09/05/18 08:28 Humulin R SUB-Q Not Given ACHS [facility] Protocol Magnesium Hydroxide 30 ml 09/02/18 19:52 Milk Of Magnesia PO Q4H PRN Constipation Metformin HCl 500 mg 09/03/18 08:00 09/04/18 13:28 Glucophage PO 500 mg BIDDIAB MARIA ESTHER Administration Nifedipine 60 mg 09/02/18 22:00 09/04/18 21:26 Procardia Xl PO 60 mg Q12HR MARIA ESTHER Administration Ondansetron HCl 4 mg 09/02/18 19:52 Zofran IV Q8H PRN Nausea And Vomiting Sodium Chloride 10 ml 09/02/18 19:52 09/05/18 05:43 Sodium Chloride Flush Syringe 10 Ml IV 10 ml PRN PRN Administration LINE FLUSH Nutrition/Malnutrition Assess - Dietary Evaluation Nutrition/Malnutrition Findings: Nutrition Notes Start: 09/03/18 19:03 Freq: Status: Active Protocol: Document 09/03/18 19:03 RM (Rec: 09/03/18 19:09 RM [id number]) Nutrition Notes Need for Assessment generated from: MD Order Initial or Follow up Assessment Current Diagnosis Diabetes,Hypertension, Hyperlipidemia Current Diet Cardiac/Consistent CHO Labs/Tests A1c 13.5 Pertinent Medications Reviewed Height 5 ft 6 in Weight 69 kg [place] Body Weight (kg) 59.09 BMI 24.5 Subjective/Other Information Consulted for nutrition recommendation and poor intake . Pt stated that her appetite is poor but improving. Stated that she eats everything from her meals except for the meat. Reviewed DM diet education. Gave handout. Burn Absent Trauma Absent #2 Nutrition Diagnosis Food and nutrition-related knowledge deficit Etiology lack of prior education As Evidenced by Signs and Symptoms no prior knowledge of need for food and nutrition recommendations #1 Nutrition Diagnosis Inadequate protein intake Etiology pt preferences As Evidenced by Signs and Symptoms pt statement that she eats everything from her meals but the meat Is patient on ventilator? No Is Patient Ambulatory and/or Out of Bed Yes REE-([place]-St. or-ambulatory/OOB) [ 1711.775 NUTR.MSJOOB] Calculation Used for Recommendations [facility] Additional Notes Protein Needs: 55-69g (0.8-1g/ kg) Fluid Needs: 1 ml/kcal Nutrition Intervention Change Diet Order: Continue current Add Supplement/Snack (indicate name/kcal Glucerna Chocolate 1 daily /protein ) Provides kCal: 220 Provides Protein (gm) 10 Teaching Recipient Patient Learning Readiness Good Teaching Methods Discussion,Handout Response to Teaching Verbalize understanding Education Handouts Provided Carbohydrate counting for people with diabetes Barriers to Learning No Barriers RD phone number provided Yes Patient aware of follow up options Yes Goal #1 Meet at least 75% of calorie and protein needs via PO and ONS intakes Goal #2 Utilize carbohydrate counting Anticipated Discharge Needs: Cardiac/Consistent CHO diet Follow-Up By: 09/08/18 Additional Comments Follow for PO and ONS intakes
[2018-09-05] MEDS: LOVENOX SUB-Q SCH ×2 (14:44→22:31)
[2018-09-05] MEDS: NORVASC PO SCH (14:48)
[2018-09-05] MEDS: BABY ASPIRIN PO SCH (14:48)
[2018-09-05] MEDS: PROCARDIA XL PO SCH ×2 (14:48→22:31)
[2018-09-05] MEDS: PLAVIX PO SCH (14:48)
--- NOTE | 2018-09-05 15:36 | Consultation ---
History of Present Illness Consult date: 09/05/18 Consult reason: other (SHELBIE evaluation) History of present illness: The patient is a 53-year-old woman who was admitted to the hospital 3 days ago with complaints of dizziness, subsequently evaluated for suspected stroke. Brain MRI reported evidence of multiple acute and subacute infarcts in the posterior circulation. An echocardiogram showed normal left ventricular systolic function, ejection fraction 60-65%. There was moderate concentric left ventricular hypertrophy. Agitated saline contrast was negative for PFO. The neurologist requests additional cardiac evaluation with a SHELBIE. The patient currently is on bedrest on the telemetry unit looks and feels well, no significant motor deficits, speech is clear. Her past medical history of hypertension, diabetes or hyperlipidemia. No prior cardiac history. She has no chest pain, no shortness of breath, no palpitations, no history of syncope and no lower extremity edema. ECG is a mild sinus tachycardia on presentation, left ventricle hypertrophy with nonspecific ST changes. Benign ECG. Past History Past Medical History: diabetes, hypertension, hyperlipidemia Past Surgical History: No surgical history Social history: , Lives alone Family history: no significant family history Medications and Allergies Allergies Allergy/AdvReac Type Severity Reaction Status Date / Time No Known Allergies Allergy Verified 02/12/14 18:07 Home Medications Medication Instructions Recorded Confirmed Last Taken Type Aspirin [Aspirin BABY CHEW TAB] 81 mg PO QDAY 02/15/14 09/02/18 09/01/18 History Ciprofloxacin HCl [Ciprofloxacin 500 mg PO Q12HR #14 tab 08/28/18 09/02/18 09/02/18 Rx TAB] Lisinopril [Zestril TAB] 40 mg PO QDAY #30 tablet 08/28/18 09/02/18 09/02/18 Rx NIFEdipine XL [Procardia Xl] 60 mg PO Q12HR #60 tablet 08/28/18 09/02/18 0 09/02/18 Rx Pravastatin Sodium [Pravastatin] 20 mg PO DAILY #30 tablet 08/28/18 09/02/18 09/02/18 Rx metFORMIN [Glucophage] 500 mg PO BIDDIAB #60 tablet 08/28/18 09/02/18 09/02/18 Rx glipiZIDE [Glucotrol] 10 mg PO BID #60 tablet 08/29/18 09/02/18 09/02/18 Rx Active Meds: Active Medications Acetaminophen (Tylenol) 650 mg PO Q4H PRN PRN Reason: Pain, Mild (1-3) Amlodipine Besylate (Norvasc) 10 mg PO QDAY [facility] Last Admin: 09/05/18 14:48 Dose: 10 mg Documented by: Aspirin (Baby Aspirin) 81 mg PO QDAY [facility] Last Admin: 09/05/18 14:48 Dose: 81 mg Documented by: Atorvastatin Calcium (Lipitor) 40 mg PO QHS [facility] Last Admin: 09/04/18 21:22 Dose: 40 mg Documented by: Clopidogrel Bisulfate (Plavix) 75 mg PO QDAY [facility] Last Admin: 09/05/18 14:48 Dose: 75 mg Documented by: Dextrose (D50w (25gm) Syringe) 50 ml IV PRN PRN PRN Reason: Hypoglycemia Docusate Sodium (Colace) 100 mg PO BID [facility] Last Admin: 09/05/18 10:00 Dose: Not Given Documented by: Enoxaparin Sodium (Lovenox) 70 mg 1 mg/kg (70 mg) SUB-Q Q12HR [facility] Last Admin: 09/05/18 14:44 Dose: 70 mg Documented by: Glipizide (Glucotrol) 10 mg PO BIDDIAB [facility] Last Admin: 09/05/18 08:00 Dose: Not Given Documented by: Guaifenesin (Robitussin) 200 mg PO Q4H PRN PRN Reason: Cough Last Admin: 09/04/18 21:23 Dose: 200 mg Documented by: Piperacillin Sod/Tazobactam Sod (Zosyn/Ns 3.375gm/50ml) 3.375 gm in 50 mls @ 100 mls/hr IV Q8HR [facility]; Protocol Last Admin: 09/05/18 14:37 Dose: 100 mls/hr Documented by: Insulin Human Regular (Humulin R) 0 units SUB-Q ACHS [facility]; Protocol Last Admin: 09/05/18 12:00 Dose: Not Given Documented by: Magnesium Hydroxide (Milk Of Magnesia) 30 ml PO Q4H PRN PRN Reason: Constipation Metformin HCl (Glucophage) 500 mg PO BIDDIAB [facility] Last Admin: 09/05/18 08:00 Dose: Not Given Documented by: Nifedipine (Procardia Xl) 60 mg PO Q12HR [facility] Last Admin: 09/05/18 14:48 Dose: 60 mg Documented by: Ondansetron HCl (Zofran) 4 mg IV Q8H PRN PRN Reason: Nausea And Vomiting Sodium Chloride (Sodium Chloride Flush Syringe 10 Ml) 10 ml IV PRN PRN PRN Reason: LINE FLUSH Last Admin: 09/05/18 05:43 Dose: 10 ml Documented by: Review of Systems Cardiovascular: no chest pain, no orthopnea, no palpitations, no rapid/irregular heart beat, no edema, no syncope, no lightheadedness, no shortness of breath Physical Examination Vital Signs Temp Pulse Resp BP Pulse Ox 98.3 F 113 H 18 154/93 98 09/02/18 16:54 09/02/18 16:54 09/02/18 16:54 09/02/18 16:54 09/02/18 16:54 General appearance: no acute distress HEENT: Positive: PERRL Neck: Positive: neck supple Cardiac: Positive: Reg Rate and Rhythm Lungs: Positive: clear to auscultation Neuro: Positive: Grossly Intact Abdomen: Positive: Soft Female genitourinary: deferred Skin: Positive: Clear Extremities: Absent: edema Results 09/02/18 17:23 09/02/18 17:23 EKG interpretations - Telemetry EKG Rhythm: Sinus Tachycardia Assessment and Plan - Patient Problems (1) Cerebrovascular accident, embolic Current Visit: Yes Status: Acute Plan to address problem: The patient presented with suspected embolic CVA, transient thoracic echocardiogram is within normal limits with normal left ventricular systolic function and negative agitated saline contrast study. Neurology requests additional echocardiographic assessment with the SHELBIE.
[2018-09-06] MEDS: ZOSYN/NS 3.375GM/50ML 3.375 GM/50 ML BAG IV SCH ×2 (05:05→14:47)
[2018-09-06] MEDS: HumuLIN R SUB-Q SCH ×4 (08:00→22:08)
[2018-09-06] MEDS: PLAVIX PO SCH (11:00)
[2018-09-06] MEDS: BABY ASPIRIN PO SCH (11:00)
[2018-09-06] MEDS: PROCARDIA XL PO SCH ×2 (11:00→22:07)
[2018-09-06] MEDS: NORVASC PO SCH (11:00)
[2018-09-06] MEDS: COLACE PO SCH ×2 (11:04→22:07)
[2018-09-06] MEDS: GLUCOPHAGE PO SCH ×2 (11:17→18:40)
[2018-09-06] MEDS: GLUCOTROL PO SCH ×2 (11:17→18:40)
[2018-09-06] MEDS: LOVENOX SUB-Q SCH ×2 (11:19→22:07)
--- NOTE | 2018-09-06 13:03 | Progress Note ---
Assessment and Plan - Patient Problems (1) Cerebrovascular accident, embolic Current Visit: Yes Status: Acute Plan to address problem: Embolic CVA on plavix and aspirin An echocardiogram is within normal limits with normal left ventricular systolic function and negative agitated saline contrast study. Neurology requests additional echocardiographic assessment with the SHELBIE. This will be done tomorrow. Subjective Date of service: 09/06/18 Objective Vital Signs Temp Pulse Resp BP BP Pulse Ox 09/06/18 11:00 88 09/06/18 07:29 98.2 F 89 16 130/89 99 09/06/18 05:47 68 09/06/18 04:00 98.7 F 89 139/85 09/05/18 23:00 98.7 F 97 H 16 140/88 100 09/05/18 22:00 87 09/05/18 19:00 98.6 F 101 H 16 142/87 95 09/05/18 16:29 98.2 F 98 H 18 159/95 100 09/05/18 15:00 83 163/104 09/05/18 14:57 163/104 09/05/18 14:48 83 - Physical Examination HEENT: Positive: PERRL Neck: Positive: neck supple Neuro: Positive: Grossly Intact Abdomen: Positive: Soft Skin: Positive: Clear Extremities: Absent: edema - Imaging and Cardiology EKG: image reviewed (sinus tach 11 3 bpm)
--- NOTE | 2018-09-06 17:44 | Progress Note ---
Assessment and Plan Assessment and plan: 53-year-old -Italian female with history of uncontrolled diabetes type 2, hypertension, hyperlipidemia who presents to [facility] ED complaints of dizziness and hypertension. Stroke alert was initiated. CT Head revealed mild to moderate microvascular angiopathy without CT evidence of acute intracranial hemorrhage. She was elevated by Tele Neuro MD, and she was not a candidate for TPA. Extensive neuro workup is consistent with embolic CVA Scheduled for SHELBIE today, cardiology is rescheduled it for tomorrow --Embolic CVA; patient has no history of A. fib Echocardiogram no ASD or shunt, probably paroxysmal A. fib Full dose anticoagulation with Lovenox, cardiology consult and SHELBIE. Possible event monitor to rule out cardiac illness/paroxysmal A. fib flutter --Dizziness ; present on admission not a candidate for TPA Neurology workup: CT head without contrast; [id number] microvascular angiopathy no evidence of acute intracranial hemorrhage MRI brain; multiple small less than 5 mL diameter foci of restricted diffusion identified involving both cerebellar hemispheres and right middle cerebral artery peduncle john and middle aspects of the right parietal lobe, embolic CVA MRA brain; no significant abnormality of intracranial vertebral arteriesto treat posterior cerebral arteries No abnormality in Intracranial internal carotid arteries Echocardiogram patent foramen ovale Moderate LVH EF 60-65% Carotid Doppler; no significant stenosis; --Hypertensive urgency; continue current antihypertensives Permissive hypertension per stroke protocol --Type 2 diabetes mellitus; Accu-Chek sliding scale coverage and ADA diet Insulin as needed, A1c 13.5 --Dyslipidemia; statin low-cholesterol diet --Severe Malnutrition: hypoalbuminemia; nutrition supplement/nutrition consult if needed --DVT prophylaxis: lovenox Closely monitor the patient and adjust management as needed Physical therapy occupational and physical rehabilitation Disposition ;Follow SHELBIE, cardiology evaluation and recommendations Plan of care is reviewed with the patient and her nurse History Interval history: Recent seen and examined medical records reviewed Scheduled for SHELBIE, unable to do rescheduled for tomorrow Patient complains of generalized weakness Vital signs noted Hospitalist Physical - Constitutional Vitals: Temp Pulse Resp BP Pulse Ox 98.2 F 88 16 130/89 99 09/06/18 07:29 09/06/18 11:00 09/06/18 07:29 09/06/18 07:29 09/06/18 07:29 General appearance: Present: no acute distress, well-nourished - EENT Eyes: Present: PERRL, EOM intact - Neck Neck: Present: supple, normal ROM - Respiratory Respiratory effort: normal Respiratory: bilateral: diminished, negative: rales, rhonchi, wheezing - Cardiovascular Rhythm: regular Heart Sounds: Present: S1 & S2 - Extremities Extremities: no ischemia, No edema - Abdominal General gastrointestinal: soft, non-tender, non-distended, normal bowel sounds - Integumentary Integumentary: Present: clear, warm - Psychiatric Psychiatric: appropriate mood/affect, cooperative - Neurologic Neurologic: other (residual general weakness) Results - Labs CBC & Chem 7: 09/02/18 17:23 09/02/18 17:23 Labs: Laboratory Last Values WBC 19.5 K/mm3 (4.5-11.0) H 09/02/18 17:23 RBC 3.36 M/mm3 (3.65-5.03) L 09/02/18 17:23 Hgb 9.7 gm/dl (10.1-14.3) L 09/02/18 17:23 Hct 29.0 % (30.3-42.9) L 09/02/18 17:23 MCV 86 fl (79-97) 09/02/18 17:23 MCH 29 pg (28-32) 09/02/18 17:23 MCHC 33 % (30-34) 09/02/18 17:23 RDW 16.1 % (13.2-15.2) H 09/02/18 17:23 Plt Count 521 K/mm3 (140-440) H 09/02/18 17:23 Lymph % (Auto) 18.9 % (13.4-35.0) 09/02/18 17:23 Walker % (Auto) 9.8 % (0.0-7.3) H 09/02/18 17:23 Eos % (Auto) 0.0 % (0.0-4.3) 09/02/18 17:23 Baso % (Auto) 0.6 % (0.0-1.8) 09/02/18 17:23 Lymph # 3.7 K/mm3 (1.2-5.4) 09/02/18 17:23 Walker # 1.9 K/mm3 (0.0-0.8) H 09/02/18 17:23 Eos # 0.0 K/mm3 (0.0-0.4) 09/02/18 17:23 Baso # 0.1 K/mm3 (0.0-0.1) 09/02/18 17:23 Seg Neutrophils % 70.7 % (40.0-70.0) H 09/02/18 17:23 Seg Neutrophils # 13.7 K/mm3 (1.8-7.7) H 09/02/18 17:23 PT 14.1 Sec. (12.2-14.9) 09/02/18 17:23 INR 1.12 (0.87-1.13) 09/02/18 17:23 APTT 45.4 Sec. (24.2-36.6) H 09/02/18 17:23 19.2 Sec. (15.1-19.6) 09/02/18 17:23 Sodium 132 mmol/L (137-145) L 09/02/18 17:23 Potassium 4.8 mmol/L (3.6-5.0) 09/02/18 17:23 Chloride 91.5 mmol/L (98-107) L 09/02/18 17:23 Carbon Dioxide 23 mmol/L (22-30) 09/02/18 17:23 22 mmol/L 09/02/18 17:23 BUN 15 mg/dL (7-17) 09/02/18 17:23 1.3 mg/dL (0.7-1.2) H 09/02/18 17:23 Estimated GFR 52 ml/min 09/02/18 17:23 12 % 09/02/18 17:23 Glucose 134 mg/dL (65-100) H 09/02/18 17:23 POC Glucose 190 (70-105) H 09/06/18 12:30 Calcium 9.6 mg/dL (8.4-10.2) 09/02/18 17:23 0.30 mg/dL (0.1-1.2) 09/03/18 05:22 < 0.2 mg/dL (0-0.2) 09/03/18 05:22 0.1 mg/dL 09/03/18 05:22 AST 17 units/L (5-40) 09/03/18 05:22 ALT 15 units/L (7-56) 09/03/18 05:22 245 units/L (35-129) H 09/03/18 05:22 26 units/L (30-135) L 09/02/18 17:23 CK-MB (CK-2) < 1.0 ng/mL (0.0-4.0) 09/02/18 17:23 CK-MB (CK-2) Rel Index 3.8 (0-4) 09/02/18 17:23 < 0.010 ng/mL (0.00-0.029) 09/02/18 17:23 8.0 g/dL (6.3-8.2) 09/03/18 05:22 2.5 g/dL (3.9-5) L 09/03/18 05:22 0.5 % 09/03/18 05:22 Triglycerides 184 mg/dL (2-149) H 09/03/18 05:22 Cholesterol 128 mg/dL (50-199) 09/03/18 05:22 76 mg/dL (50-130) 09/03/18 05:22 23 mg/dL (40-59) L 09/03/18 05:22 5.56 % 09/03/18 05:22 Yellow (Yellow) 09/02/18 17:49 Clear (Clear) 09/02/18 17:49 6.0 (5.0-7.0) 09/02/18 17:49 Ur Specific [place] 1.005 (1.003-1.030) 09/02/18 17:49 <15 mg/dl mg/dL (Negative) 09/02/18 17:49 Neg mg/dL (Negative) 09/02/18 17:49 Neg mg/dL (Negative) 09/02/18 17:49 Neg (Negative) 09/02/18 17:49 Neg (Negative) 09/02/18 17:49 Neg (Negative) 09/02/18 17:49 < 2.0 mg/dL (<2.0) 09/02/18 17:49 Ur Leukocyte Esterase Tr (Negative) 09/02/18 17:49 3.0 /HPF (0.0-6.0) 09/02/18 17:49 3.0 /HPF (0.0-6.0) 09/02/18 17:49 U Epithel Cells (Auto) 7.0 /HPF (0-13.0) 09/02/18 17:49 Few /HPF 09/02/18 17:49 Active Medications - Current Medications Current Medications: Generic Name Dose Route Start Last Admin Trade Name Freq PRN Reason Stop Dose Admin Acetaminophen 650 mg 09/02/18 19:52 Tylenol PO Q4H PRN Pain, Mild (1-3) Aspirin 81 mg 09/03/18 10:00 09/06/18 11:00 Baby Aspirin PO 81 mg QDAY [facility] Administration Atorvastatin Calcium 40 mg 09/02/18 22:00 09/05/18 22:30 Lipitor PO 40 mg QHS [facility] ESTHER Administration Clopidogrel Bisulfate 75 mg 09/03/18 19:00 09/06/18 11:00 Plavix PO 75 mg QDAY [facility] ESTHER Administration Dextrose 50 ml 09/02/18 20:03 D50w (25gm) Syringe IV PRN PRN Hypoglycemia Docusate Sodium 100 mg 09/02/18 22:00 09/06/18 11:04 Colace PO 100 mg BID MARIA ESTHER Administration Enoxaparin Sodium 70 mg 09/06/18 22:00 Lovenox SUB-Q Q12HR [facility] EST[facility] Glipizide 10 mg 09/03/18 08:00 09/06/18 11:17 Glucotrol PO 10 mg BIDDIAB [facility] Administration Guaifenesin 200 mg 09/03/18 23:25 09/04/18 21:23 Robitussin PO 200 mg Q4H PRN Administration Cough Piperacillin Sod/Tazobactam Sod 3.375 gm in 50 mls @ 100 mls/hr 09/02/18 22:00 09/06/18 14:47 Zosyn/Ns 3.375gm/50ml IV 09/06/18 21:59 100 mls/hr Q8HR [facility]IA ESTHER Administration Protocol Insulin Human Regular 0 units 09/02/18 22:00 09/06/18 12:00 Humulin R SUB-Q Not Given ACHS [facility] Protocol Magnesium Hydroxide 30 ml 09/02/18 19:52 Milk Of Magnesia PO Q4H PRN Constipation Metformin HCl 500 mg 09/03/18 08:00 09/06/18 11:17 Glucophage PO 500 mg BIDDIAB [facility] Administration Nifedipine 60 mg 09/02/18 22:00 09/06/18 11:00 Procardia Xl PO 60 mg Q12HR [facility] Administration Ondansetron HCl 4 mg 09/02/18 19:52 Zofran IV Q8H PRN Nausea And Vomiting Sodium Chloride 10 ml 09/02/18 19:52 09/05/18 22:34 Sodium Chloride Flush Syringe 10 Ml IV 10 ml PRN PRN Administration LINE FLUSH Nutrition/Malnutrition Assess - Dietary Evaluation Nutrition/Malnutrition Findings: Nutrition Notes Start: 09/03/18 19:03 Freq: Status: Active Protocol: Document 09/03/18 19:03 RM (Rec: 09/03/18 19:09 [email or web address]) Nutrition Notes Need for Assessment generated from: MD Order Initial or Follow up Assessment Current Diagnosis Diabetes,Hypertension, Hyperlipidemia Current Diet Cardiac/Consistent CHO Labs/Tests A1c 13.5 Pertinent Medications Reviewed Height 5 ft 6 in Weight 69 kg [place] Body Weight (kg) 59.09 BMI 24.5 Subjective/Other Information Consulted for nutrition recommendation and poor intake . Pt stated that her appetite is poor but improving. Stated that she eats everything from her meals except for the meat. Reviewed DM diet education. Gave handout. Burn Absent Trauma Absent #2 Nutrition Diagnosis Food and nutrition-related knowledge deficit Etiology lack of prior education As Evidenced by Signs and Symptoms no prior knowledge of need for food and nutrition recommendations #1 Nutrition Diagnosis Inadequate protein intake Etiology pt preferences As Evidenced by Signs and Symptoms pt statement that she eats everything from her meals but the meat Is patient on ventilator? No Is Patient Ambulatory and/or Out of Bed Yes REE-([facility]-ambulatory/OOB) [ 1711.775 [id number]] Calculation Used for Recommendations [facility] Additional Notes Protein Needs: 55-69g (0.8-1g/ kg) Fluid Needs: 1 ml/kcal Nutrition Intervention Change Diet Order: Continue current Add Supplement/Snack (indicate name/kcal Glucerna Chocolate 1 daily /protein ) Provides kCal: 220 Provides Protein (gm) 10 Teaching Recipient Patient Learning Readiness Good Teaching Methods Discussion,Handout Response to Teaching Verbalize understanding Education Handouts Provided Carbohydrate counting for people with diabetes Barriers to Learning No Barriers RD phone number provided Yes Patient aware of follow up options Yes Goal #1 Meet at least 75% of calorie and protein needs via PO and ONS intakes Goal #2 Utilize carbohydrate counting Anticipated Discharge Needs: Cardiac/Consistent CHO diet Follow-Up By: 09/08/18 Additional Comments Follow for PO and ONS intakes
[2018-09-07] MEDS: HumuLIN R SUB-Q SCH ×4 (08:00→21:18)
[2018-09-07] MEDS ORDERED: SUBLIMAZE IV NR (10:34)
[2018-09-07] MEDS ORDERED: VERSED IV NR (10:34)
[2018-09-07] MEDS: COLACE PO SCH ×2 (11:23→21:18)
[2018-09-07] MEDS: BABY ASPIRIN PO SCH (11:24)
[2018-09-07] MEDS: PLAVIX PO SCH (11:24)
[2018-09-07] MEDS: PROCARDIA XL PO SCH ×2 (11:24→21:18)
[2018-09-07] MEDS: LOVENOX SUB-Q SCH ×2 (11:24→21:17)
[2018-09-07] MEDS: GLUCOPHAGE PO SCH ×2 (11:27→19:00)
[2018-09-07] MEDS: GLUCOTROL PO SCH ×2 (11:28→18:59)
[2018-09-07] MEDS ORDERED: HURRICAINE ONE 20% TOPICAL SPRAY MM NR (12:00)
[2018-09-07] MEDS ORDERED: VERSED IV ONE (12:03)
[2018-09-07] MEDS ORDERED: SUBLIMAZE ONE (12:03)
[2018-09-07] MEDS ORDERED: HURRICAINE ONE 20% TOPICAL SPRAY MM (12:06)
[2018-09-07] MEDS ORDERED: APRESOLINE IV ONE (12:31)
[2018-09-07] MEDS ORDERED: APRESOLINE IV NR (12:36)
--- NOTE | 2018-09-07 17:51 | Progress Note ---
Assessment and Plan Assessment and plan: 53-year-old -Irish female with history of uncontrolled diabetes type 2, hypertension, hyperlipidemia who presents to [facility] ED complaints of dizziness and hypertension. Stroke alert was initiated. CT Head revealed mild to moderate microvascular angiopathy without CT evidence of acute intracranial hemorrhage. She was elevated by Tele Neuro MD, and she was not a candidate for TPA. 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 fib Full dose anticoagulation with Lovenox, cardiology following for SHELBIE Rescheduled for SHELBIE tomorrow --Dizziness ; present on admission not a candidate for TPA Neurology workup: CT head without contrast; [id number] microvascular angiopathy no evidence of acute intracranial hemorrhage MRI brain; multiple small less than 5 mL diameter foci of restricted diffusion identified involving both cerebellar hemispheres and right middle cerebral artery peduncle john and middle aspects of the right parietal lobe, embolic CVA MRA brain; no significant abnormality of intracranial vertebral arteriesto treat posterior cerebral arteries No abnormality in Intracranial internal carotid arteries Echocardiogram patent foramen ovale Moderate LVH EF 60-65% Carotid Doppler; no significant stenosis; --Hypertensive urgency; blood pressure is well-controlled continue current antihypertensives --Type 2 diabetes mellitus; Accu-Chek sliding scale coverage and ADA diet Insulin as needed, A1c 13.5 --Dyslipidemia; statin low-cholesterol diet --Severe Malnutrition: hypoalbuminemia; nutrition supplement/nutrition consult if needed --DVT prophylaxis: lovenox Closely monitor the patient and adjust management as needed Physical therapy occupational and physical rehabilitation Disposition ;Follow SHELBIE, and cardiology recommendations Plan of care is reviewed with the patient and her nurse History Interval history: Patient seen and examined medical records reviewed Scheduled SHELBIE for tomorrow again as patient was given water vitamins Patient feels better complaints of generalized weakness Vital signs noted Hospitalist Physical - Constitutional Vitals: Temp Pulse Resp BP Pulse Ox 98.6 F 96 H 14 135/85 99 09/07/18 17:06 09/07/18 17:06 09/07/18 17:06 09/07/18 17:06 09/07/18 17:06 General appearance: Present: no acute distress, well-nourished - EENT Eyes: Present: PERRL, EOM intact - Neck Neck: Present: supple, normal ROM - Respiratory Respiratory effort: normal Respiratory: bilateral: diminished, negative: rales, rhonchi, wheezing - Cardiovascular Rhythm: regular Heart Sounds: Present: S1 & S2 - Extremities Extremities: no ischemia, No edema - Abdominal General gastrointestinal: soft, non-tender, non-distended, normal bowel sounds - Integumentary Integumentary: Present: clear, warm - Psychiatric Psychiatric: appropriate mood/affect, cooperative - Neurologic Neurologic: other (embolic CVA with residual weakness) Results - Labs CBC & Chem 7: 09/02/18 17:23 09/02/18 17:23 Labs: Laboratory Last Values WBC 19.5 K/mm3 (4.5-11.0) H 09/02/18 17:23 RBC 3.36 M/mm3 (3.65-5.03) L 09/02/18 17:23 Hgb 9.7 gm/dl (10.1-14.3) L 09/02/18 17:23 Hct 29.0 % (30.3-42.9) L 09/02/18 17:23 MCV 86 fl (79-97) 09/02/18 17:23 MCH 29 pg (28-32) 09/02/18 17:23 MCHC 33 % (30-34) 09/02/18 17:23 RDW 16.1 % (13.2-15.2) H 09/02/18 17:23 Plt Count 521 K/mm3 (140-440) H 09/02/18 17:23 Lymph % (Auto) 18.9 % (13.4-35.0) 09/02/18 17:23 [place] % (Auto) 9.8 % (0.0-7.3) H 09/02/18 17:23 Eos % (Auto) 0.0 % (0.0-4.3) 09/02/18 17:23 Baso % (Auto) 0.6 % (0.0-1.8) 09/02/18 17:23 Lymph # 3.7 K/mm3 (1.2-5.4) 09/02/18 17:23 [place] # 1.9 K/mm3 (0.0-0.8) H 09/02/18 17:23 Eos # 0.0 K/mm3 (0.0-0.4) 09/02/18 17:23 Baso # 0.1 K/mm3 (0.0-0.1) 09/02/18 17:23 Seg Neutrophils % 70.7 % (40.0-70.0) H 09/02/18 17:23 Seg Neutrophils # 13.7 K/mm3 (1.8-7.7) H 09/02/18 17:23 PT 14.1 Sec. (12.2-14.9) 09/02/18 17:23 INR 1.12 (0.87-1.13) 09/02/18 17:23 APTT 45.4 Sec. (24.2-36.6) H 09/02/18 17:23 19.2 Sec. (15.1-19.6) 09/02/18 17:23 Sodium 132 mmol/L (137-145) L 09/02/18 17:23 Potassium 4.8 mmol/L (3.6-5.0) 09/02/18 17:23 Chloride 91.5 mmol/L (98-107) L 09/02/18 17:23 Carbon Dioxide 23 mmol/L (22-30) 09/02/18 17:23 22 mmol/L 09/02/18 17:23 BUN 15 mg/dL (7-17) 09/02/18 17:23 1.3 mg/dL (0.7-1.2) H 09/02/18 17:23 Estimated GFR 52 ml/min 09/02/18 17:23 12 % 09/02/18 17:23 Glucose 134 mg/dL (65-100) H 09/02/18 17:23 POC Glucose 101 (70-105) 09/07/18 13:53 Calcium 9.6 mg/dL (8.4-10.2) 09/02/18 17:23 0.30 mg/dL (0.1-1.2) 09/03/18 05:22 < 0.2 mg/dL (0-0.2) 09/03/18 05:22 0.1 mg/dL 09/03/18 05:22 AST 17 units/L (5-40) 09/03/18 05:22 ALT 15 units/L (7-56) 09/03/18 05:22 245 units/L (35-129) H 09/03/18 05:22 26 units/L (30-135) L 09/02/18 17:23 CK-MB (CK-2) < 1.0 ng/mL (0.0-4.0) 09/02/18 17:23 CK-MB (CK-2) Rel Index 3.8 (0-4) 09/02/18 17:23 < 0.010 ng/mL (0.00-0.029) 09/02/18 17:23 8.0 g/dL (6.3-8.2) 09/03/18 05:22 2.5 g/dL (3.9-5) L 09/03/18 05:22 0.5 % 09/03/18 05:22 Triglycerides 184 mg/dL (2-149) H 09/03/18 05:22 Cholesterol 128 mg/dL (50-199) 09/03/18 05:22 76 mg/dL (50-130) 09/03/18 05:22 23 mg/dL (40-59) L 09/03/18 05:22 5.56 % 09/03/18 05:22 Yellow (Yellow) 09/02/18 17:49 Clear (Clear) 09/02/18 17:49 6.0 (5.0-7.0) 09/02/18 17:49 Ur Specific [place] 1.005 (1.003-1.030) 09/02/18 17:49 <15 mg/dl mg/dL (Negative) 09/02/18 17:49 Neg mg/dL (Negative) 09/02/18 17:49 Neg mg/dL (Negative) 09/02/18 17:49 Neg (Negative) 09/02/18 17:49 Neg (Negative) 09/02/18 17:49 Neg (Negative) 09/02/18 17:49 < 2.0 mg/dL (<2.0) 09/02/18 17:49 Ur Leukocyte Esterase Tr (Negative) 09/02/18 17:49 3.0 /HPF (0.0-6.0) 09/02/18 17:49 3.0 /HPF (0.0-6.0) 07/18/19 17:49 U Epithel Cells (Auto) 7.0 /HPF (0-13.0) 09/02/18 17:49 Few /HPF 09/02/18 17:49 Active Medications - Current Medications Current Medications: Generic Name Dose Route Start Last Admin Trade Name Freq PRN Reason Stop Dose Admin Acetaminophen 650 mg 09/02/18 19:52 Tylenol PO Q4H PRN Pain, Mild (1-3) Aspirin 81 mg 09/03/18 10:00 09/07/18 11:24 Baby Aspirin PO 81 mg QDAY MARIA ESTHER Administration Atorvastatin Calcium 40 mg 09/02/18 22:00 09/06/18 22:07 Lipitor PO 40 mg QHS MARIA ESTHER Administration Clopidogrel Bisulfate 75 mg 09/03/18 19:00 09/07/18 11:24 Plavix PO 75 mg QDAY [facility] Administration Dextrose 50 ml 09/02/18 20:03 D50w (25gm) Syringe IV PRN PRN Hypoglycemia Docusate Sodium 100 mg 09/02/18 22:00 09/07/18 11:23 Colace PO 100 mg BID [facility] Administration Enoxaparin Sodium 70 mg 09/06/18 22:00 09/07/18 11:24 Lovenox SUB-Q Not Given Q12HR [facility] Glipizide 10 mg 09/03/18 08:00 09/07/18 11:28 Glucotrol PO Not Given BIDDIAB [facility] Guaifenesin 200 mg 09/03/18 23:25 09/04/18 21:23 Robitussin PO 200 mg Q4H PRN Administration Cough Insulin Human Regular 0 units 09/02/18 22:00 09/07/18 13:00 Humulin R SUB-Q Not Given [facility] Protocol Magnesium Hydroxide 30 ml 09/02/18 19:52 Milk Of Magnesia PO Q4H PRN Constipation Metformin HCl 500 mg 09/03/18 08:00 09/07/18 11:27 Glucophage PO Not Given BIDDIAB [facility] Nifedipine 60 mg 09/02/18 22:00 09/07/18 11:24 Procardia Xl PO 60 mg Q12HR MARIA ESTHER Administration Ondansetron HCl 4 mg 09/02/18 19:52 Zofran IV Q8H PRN Nausea And Vomiting Sodium Chloride 10 ml 09/02/18 19:52 09/05/18 22:34 Sodium Chloride Flush Syringe 10 Ml IV 10 ml PRN PRN Administration LINE FLUSH Nutrition/Malnutrition Assess - Dietary Evaluation Nutrition/Malnutrition Findings: Nutrition Notes Start: 09/03/18 19:03 Freq: Status: Active Protocol: Document 09/03/18 19:03 RM (Rec: 09/03/18 19:09 RM [id number]) Nutrition Notes Need for Assessment generated from: MD Order Initial or Follow up Assessment Current Diagnosis Diabetes,Hypertension, Hyperlipidemia Current Diet Cardiac/Consistent CHO Labs/Tests A1c 13.5 Pertinent Medications Reviewed Height 5 ft 6 in Weight 69 kg [place] Body Weight (kg) 59.09 BMI 24.5 Subjective/Other Information Consulted for nutrition recommendation and poor intake . Pt stated that her appetite is poor but improving. Stated that she eats everything from her meals except for the meat. Reviewed DM diet education. Gave handout. Burn Absent Trauma Absent #2 Nutrition Diagnosis Food and nutrition-related knowledge deficit Etiology lack of prior education As Evidenced by Signs and Symptoms no prior knowledge of need for food and nutrition recommendations #1 Nutrition Diagnosis Inadequate protein intake Etiology pt preferences As Evidenced by Signs and Symptoms pt statement that she eats everything from her meals but the meat Is patient on ventilator? No Is Patient Ambulatory and/or Out of Bed Yes REE-([facility]-ambulatory/OOB) [ 1711.775 NUTR.MSJOOB] Calculation Used for Recommendations [facility] Additional Notes Protein Needs: 55-69g (0.8-1g/ kg) Fluid Needs: 1 ml/kcal Nutrition Intervention Change Diet Order: Continue current Add Supplement/Snack (indicate name/kcal Glucerna Chocolate 1 daily /protein ) Provides kCal: 220 Provides Protein (gm) 10 Teaching Recipient Patient Learning Readiness Good Teaching Methods Discussion,Handout Response to Teaching Verbalize understanding Education Handouts Provided Carbohydrate counting for people with diabetes Barriers to Learning No Barriers RD phone number provided Yes Patient aware of follow up options Yes Goal #1 Meet at least 75% of calorie and protein needs via PO and ONS intakes Goal #2 Utilize carbohydrate counting Anticipated Discharge Needs: Cardiac/Consistent CHO diet Follow-Up By: 09/08/18 Additional Comments Follow for PO and ONS intakes
[2018-09-07] MEDS: ROBITUSSIN PO PRN (21:53)
[2018-09-08] MEDS ORDERED: HURRICAINE ONE 20% TOPICAL SPRAY MM NR (09:00)
[2018-09-08] MEDS ORDERED: SUBLIMAZE IV NR (09:00)
[2018-09-08] MEDS ORDERED: VERSED IV NR (09:00)
[2018-09-08] MEDS: COLACE PO SCH ×2 (09:12→21:34)
[2018-09-08] MEDS: BABY ASPIRIN PO SCH (09:12)
[2018-09-08] MEDS: LOVENOX SUB-Q SCH ×2 (09:12→21:34)
[2018-09-08] MEDS: GLUCOPHAGE PO SCH ×2 (09:12→18:35)
[2018-09-08] MEDS: HumuLIN R SUB-Q SCH ×4 (09:12→21:34)
[2018-09-08] MEDS: GLUCOTROL PO SCH ×2 (09:12→18:35)
[2018-09-08] MEDS: PROCARDIA XL PO SCH ×2 (09:13→21:34)
[2018-09-08] MEDS: PLAVIX PO SCH (09:13)
[2018-09-08] MEDS ORDERED: APRESOLINE ONE (09:24)
[2018-09-08] MEDS ORDERED: SUBLIMAZE ONE (09:38)
[2018-09-08] MEDS ORDERED: VERSED IV ONE (09:38)
[2018-09-08] MEDS ORDERED: APRESOLINE IV ONE (10:00)
--- NOTE | 2018-09-08 16:23 | Progress Note ---
Assessment and Plan Assessment and plan: 53-year-old -Pakistani female with history of uncontrolled diabetes type 2, hypertension, hyperlipidemia who presents to [facility] ED complaints of dizziness and hypertension. Stroke alert was initiated. CT Head revealed mild to moderate microvascular angiopathy without CT evidence of acute intracranial hemorrhage. She was elevated by Tele Neuro MD, and she was not a candidate for TPA. Extensive neuro workup is consistent with embolic CVA On Lovenox ,S/P SHELBIE today, follow report and cardiology recommendations --Embolic CVA; patient has no history of A. fib Echocardiogram no ASD or shunt, r/o paroxysmal A. fib Full dose anticoagulation with Lovenox, s/p SHELBIE today. f/u Report and cardiology recommendations --Dizziness ; present on admission not a candidate for TPA Neurology workup: CT head without contrast; [id number] microvascular angiopathy no evidence of acute intracranial hemorrhage MRI brain; multiple small less than 5 mL diameter foci of restricted diffusion identified involving both cerebellar hemispheres and right middle cerebral artery peduncle john and middle aspects of the right parietal lobe, embolic CVA MRA brain; no significant abnormality of intracranial vertebral arteriesto treat posterior cerebral arteries No abnormality in Intracranial internal carotid arteries Echocardiogram patent foramen ovale Moderate LVH EF 60-65% Carotid Doppler; no significant stenosis; --Hypertensive urgency; blood pressure is well-controlled continue current antihypertensives --Type 2 diabetes mellitus; Accu-Chek sliding scale coverage and ADA diet Insulin as needed, A1c 13.5 --Dyslipidemia; statin low-cholesterol diet --Severe Malnutrition: hypoalbuminemia; nutrition supplement/nutrition consult if needed --DVT prophylaxis: lovenox Closely monitor the patient and adjust management as needed Physical therapy occupational and rehabilitation Disposition ;Follow SHELBIE, and cardiology recommendations Possible subacute rehabilitation versus home with home health when medically stable Plan of care is reviewed with the patient and her nurse History Interval history: Patient seen and examined medical history reviewed Patient had SHELBIE today Patient complains of generalized weakness Vital signs noted Hospitalist Physical - Constitutional Vitals: Temp Pulse Resp BP Pulse Ox 98.1 F 101 H 14 134/88 98 09/08/18 13:24 09/08/18 13:24 09/08/18 13:24 09/08/18 13:24 09/08/18 13:24 General appearance: Present: no acute distress, well-nourished - EENT Eyes: Present: PERRL, EOM intact - Neck Neck: Present: supple, normal ROM - Respiratory Respiratory effort: normal Respiratory: bilateral: diminished, negative: rales, rhonchi, wheezing - Cardiovascular Rhythm: regular Heart Sounds: Present: S1 & S2 - Extremities Extremities: no ischemia, No edema Peripheral Pulses: within normal limits - Abdominal General gastrointestinal: soft, non-tender, non-distended, normal bowel sounds - Integumentary Integumentary: Present: clear, warm - Psychiatric Psychiatric: appropriate mood/affect, cooperative - Neurologic Neurologic: moves all extremities, other (residual weakness) Results - Labs CBC & Chem 7: 09/02/18 17:23 09/02/18 17:23 Labs: Laboratory Last Values WBC 19.5 K/mm3 (4.5-11.0) H 09/02/18 17:23 RBC 3.36 M/mm3 (3.65-5.03) L 09/02/18 17:23 Hgb 9.7 gm/dl (10.1-14.3) L 09/02/18 17:23 Hct 29.0 % (30.3-42.9) L 09/02/18 17:23 MCV 86 fl (79-97) 09/02/18 17:23 MCH 29 pg (28-32) 09/02/18 17:23 MCHC 33 % (30-34) 09/02/18 17:23 RDW 16.1 % (13.2-15.2) H 09/02/18 17:23 Plt Count 521 K/mm3 (140-440) H 09/02/18 17:23 Lymph % (Auto) 18.9 % (13.4-35.0) 09/02/18 17:23 [place] % (Auto) 9.8 % (0.0-7.3) H 09/02/18 17:23 Eos % (Auto) 0.0 % (0.0-4.3) 09/02/18 17:23 Baso % (Auto) 0.6 % (0.0-1.8) 09/02/18 17:23 Lymph # 3.7 K/mm3 (1.2-5.4) 09/02/18 17:23 [place] # 1.9 K/mm3 (0.0-0.8) H 09/02/18 17:23 Eos # 0.0 K/mm3 (0.0-0.4) 09/02/18 17:23 Baso # 0.1 K/mm3 (0.0-0.1) 09/02/18 17:23 Seg Neutrophils % 70.7 % (40.0-70.0) H 09/02/18 17:23 Seg Neutrophils # 13.7 K/mm3 (1.8-7.7) H 09/02/18 17:23 PT 14.1 Sec. (12.2-14.9) 09/02/18 17:23 INR 1.12 (0.87-1.13) 09/02/18 17:23 APTT 45.4 Sec. (24.2-36.6) H 09/02/18 17:23 19.2 Sec. (15.1-19.6) 09/02/18 17:23 Sodium 132 mmol/L (137-145) L 09/02/18 17:23 Potassium 4.8 mmol/L (3.6-5.0) 09/02/18 17:23 Chloride 91.5 mmol/L (98-107) L 09/02/18 17:23 Carbon Dioxide 23 mmol/L (22-30) 09/02/18 17:23 22 mmol/L 09/02/18 17:23 BUN 15 mg/dL (7-17) 09/02/18 17:23 1.3 mg/dL (0.7-1.2) H 09/02/18 17:23 Estimated GFR 52 ml/min 09/02/18 17:23 12 % 09/02/18 17:23 Glucose 134 mg/dL (65-100) H 09/02/18 17:23 POC Glucose 88 (70-105) 09/08/18 12:12 Calcium 9.6 mg/dL (8.4-10.2) 09/02/18 17:23 0.30 mg/dL (0.1-1.2) 09/03/18 05:22 < 0.2 mg/dL (0-0.2) 09/03/18 05:22 0.1 mg/dL 09/03/18 05:22 AST 17 units/L (5-40) 09/03/18 05:22 ALT 15 units/L (7-56) 09/03/18 05:22 245 units/L (35-129) H 09/03/18 05:22 26 units/L (30-135) L 09/02/18 17:23 CK-MB (CK-2) < 1.0 ng/mL (0.0-4.0) 09/02/18 17:23 CK-MB (CK-2) Rel Index 3.8 (0-4) 09/02/18 17:23 < 0.010 ng/mL (0.00-0.029) 09/02/18 17:23 8.0 g/dL (6.3-8.2) 09/03/18 05:22 2.5 g/dL (3.9-5) L 09/03/18 05:22 0.5 % 09/03/18 05:22 Triglycerides 184 mg/dL (2-149) H 09/03/18 05:22 Cholesterol 128 mg/dL (50-199) 09/03/18 05:22 76 mg/dL (50-130) 09/03/18 05:22 23 mg/dL (40-59) L 09/03/18 05:22 5.56 % 09/03/18 05:22 Yellow (Yellow) 09/02/18 17:49 Clear (Clear) 09/02/18 17:49 6.0 (5.0-7.0) 09/02/18 17:49 Ur Specific [place] 1.005 (1.003-1.030) 09/02/18 17:49 <15 mg/dl mg/dL (Negative) 09/02/18 17:49 Neg mg/dL (Negative) 09/02/18 17:49 Neg mg/dL (Negative) 09/02/18 17:49 Neg (Negative) 09/02/18 17:49 Neg (Negative) 09/02/18 17:49 Neg (Negative) 09/02/18 17:49 < 2.0 mg/dL (<2.0) 09/02/18 17:49 Ur Leukocyte Esterase Tr (Negative) 09/02/18 17:49 3.0 /HPF (0.0-6.0) 09/02/18 17:49 3.0 /HPF (0.0-6.0) 09/02/18 17:49 U Epithel Cells (Auto) 7.0 /HPF (0-13.0) 09/02/18 17:49 Few /HPF 09/02/18 17:49 Active Medications - Current Medications Current Medications: Generic Name Dose Route Start Last Admin Trade Name Freq PRN Reason Stop Dose Admin Acetaminophen 650 mg 09/02/18 19:52 Tylenol PO Q4H PRN Pain, Mild (1-3) Aspirin 81 mg 09/03/18 10:00 09/08/18 09:12 Baby Aspirin PO Not Given QDAY [facility] Atorvastatin Calcium 40 mg 09/02/18 22:00 09/07/18 21:18 Lipitor PO 40 mg QHS MARIA ESTHER Administration Benzocaine 3 spray 09/08/18 09:00 09/08/18 09:20 Hurricaine One 20% Topical [place] MM 09/08/18 18:00 3 spray PREOP NR Administration Clopidogrel Bisulfate 75 mg 09/03/18 19:00 09/08/18 09:13 Plavix PO Not Given QDAY [facility] Dextrose 50 ml 09/02/18 20:03 D50w (25gm) Syringe IV PRN PRN Hypoglycemia Docusate Sodium 100 mg 09/02/18 22:00 09/08/18 09:12 Colace PO Not Given BID [facility] Enoxaparin Sodium 70 mg 09/06/18 22:00 09/08/18 09:12 Lovenox SUB-Q Not Given Q12HR [facility] Glipizide 10 mg 09/03/18 08:00 09/08/18 09:12 Glucotrol PO Not Given BIDDIAB [facility] Guaifenesin 200 mg 09/03/18 23:25 09/07/18 21:53 Robitussin PO 200 mg Q4H PRN Administration Cough Insulin Human Regular 0 units 09/02/18 22:00 09/08/18 14:15 Humulin R SUB-Q Not Given ACHS [facility] Protocol Magnesium Hydroxide 30 ml 09/02/18 19:52 Milk Of Magnesia PO Q4H PRN Constipation Metformin HCl 500 mg 09/03/18 08:00 09/08/18 09:12 Glucophage PO Not Given BIDDIAB [facility] Midazolam HCl 5 mg 09/08/18 09:00 09/08/18 09:20 Versed IV 09/08/18 18:00 5 mg ONCE NR Administration Nifedipine 60 mg 09/02/18 22:00 09/08/18 09:13 Procardia Xl PO Not Given Q12HR [facility] EST[facility] Ondansetron HCl 4 mg 09/02/18 19:52 Zofran IV Q8H PRN Nausea And Vomiting Sodium Chloride 10 ml 09/02/18 19:52 09/05/18 22:34 Sodium Chloride Flush Syringe 10 Ml IV 10 ml PRN PRN Administration LINE FLUSH Nutrition/Malnutrition Assess - Dietary Evaluation Nutrition/Malnutrition Findings: Nutrition Notes Start: 09/03/18 19:03 Freq: Status: Active Protocol: Document 09/03/18 19:03 RM (Rec: 09/03/18 19:09 RM [id number]) Nutrition Notes Need for Assessment generated from: MD Order Initial or Follow up Assessment Current Diagnosis Diabetes,Hypertension, Hyperlipidemia Current Diet Cardiac/Consistent CHO Labs/Tests A1c 13.5 Pertinent Medications Reviewed Height 5 ft 6 in Weight 69 kg [place] Body Weight (kg) 59.09 BMI 24.5 Subjective/Other Information Consulted for nutrition recommendation and poor intake . Pt stated that her appetite is poor but improving. Stated that she eats everything from her meals except for the meat. Reviewed DM diet education. Gave handout. Burn Absent Trauma Absent #2 Nutrition Diagnosis Food and nutrition-related knowledge deficit Etiology lack of prior education As Evidenced by Signs and Symptoms no prior knowledge of need for food and nutrition recommendations #1 Nutrition Diagnosis Inadequate protein intake Etiology pt preferences As Evidenced by Signs and Symptoms pt statement that she eats everything from her meals but the meat Is patient on ventilator? No Is Patient Ambulatory and/or Out of Bed Yes REE-([facility]-ambulatory/OOB) [ 1711.775 NUTR.MSJOOB] Calculation Used for Recommendations [facility] Additional Notes Protein Needs: 55-69g (0.8-1g/ kg) Fluid Needs: 1 ml/kcal Nutrition Intervention Change Diet Order: Continue current Add Supplement/Snack (indicate name/kcal Glucerna Chocolate 1 daily /protein ) Provides kCal: 220 Provides Protein (gm) 10 Teaching Recipient Patient Learning Readiness Good Teaching Methods Discussion,Handout Response to Teaching Verbalize understanding Education Handouts Provided Carbohydrate counting for people with diabetes Barriers to Learning No Barriers RD phone number provided Yes Patient aware of follow up options Yes Goal #1 Meet at least 75% of calorie and protein needs via PO and ONS intakes Goal #2 Utilize carbohydrate counting Anticipated Discharge Needs: Cardiac/Consistent CHO diet Follow-Up By: 09/08/18 Additional Comments Follow for PO and ONS intakes
[2018-09-09] MEDS: APRESOLINE IV PRN ×2 (04:36→21:32)
[2018-09-09] MEDS: LOVENOX SUB-Q SCH ×2 (10:05→21:33)
[2018-09-09] MEDS: BABY ASPIRIN PO SCH (10:05)
[2018-09-09] MEDS: GLUCOTROL PO SCH ×2 (10:05→17:03)
[2018-09-09] MEDS: PROCARDIA XL PO SCH ×2 (10:05→21:33)
[2018-09-09] MEDS: GLUCOPHAGE PO SCH ×2 (10:05→17:03)
[2018-09-09] MEDS: COLACE PO SCH ×2 (10:05→21:34)
[2018-09-09] MEDS: PLAVIX PO SCH (10:05)
[2018-09-09] MEDS: HumuLIN R SUB-Q SCH ×4 (10:06→21:34)
[2018-09-09] MEDS: ROBITUSSIN PO PRN (17:03)
--- NOTE | 2018-09-09 18:32 | Progress Note ---
Assessment and Plan 53-year-old -[place] female with history of uncontrolled diabetes type 2, hypertension, hyperlipidemia who presents to [facility] ED complaints of dizziness and hypertension. Stroke alert was initiated. CT Head revealed mild to moderate microvascular angiopathy without CT evidence of acute intracranial hemorrhage. She was elevated by Tele Neuro , and she was not a candidate for TPA. Extensive neuro workup is consistent with embolic CVA On Lovenox ,S/P SHELBIE today, follow report and cardiology recommendations --Embolic CVA; patient has no history of A. fib Echocardiogram no ASD or shunt, r/o paroxysmal A. fib Full dose anticoagulation with Lovenox, s/p SHELBIE today. f/u Report and cardiology recommendations --Dizziness ; present on admission not a candidate for TPA Neurology workup: CT head without contrast; [id number] microvascular angiopathy no evidence of acute intracranial hemorrhage MRI brain; multiple small less than 5 mL diameter foci of restricted diffusion identified involving both cerebellar hemispheres and right middle cerebral artery peduncle john and middle aspects of the right parietal lobe, embolic CVA MRA brain; no significant abnormality of intracranial vertebral arteriesto treat posterior cerebral arteries No abnormality in Intracranial internal carotid arteries Echocardiogram patent foramen ovale Moderate LVH EF 60-65% Carotid Doppler; no significant stenosis; --Hypertensive urgency; blood pressure is well-controlled continue current antihypertensives --Type 2 diabetes mellitus; Accu-Chek sliding scale coverage and ADA diet Insulin as needed, A1c 13.5 --Dyslipidemia; statin low-cholesterol diet --Severe Malnutrition: hypoalbuminemia; nutrition supplement/nutrition consult if needed --DVT prophylaxis: lovenox Closely monitor the patient and adjust management as needed Physical therapy occupational and rehabilitation Disposition ;Follow SHELBIE, and cardiology recommendations Possible subacute rehabilitation versus home with home health when medically stable Plan of care is reviewed with the patient and her nurse Subjective Date of service: 09/09/18 Principal diagnosis: Acute CVA Interval history: 53-year-old -[place] female with history of uncontrolled diabetes type 2, hypertension, hyperlipidemia who presents to [facility] ED complaints of dizziness and hypertension. Stroke alert was initiated. CT Head revealed mild to moderate microvascular angiopathy without CT evidence of acute intracranial hemorrhage. She was elvaluated by Tele Neuro , and she was not a candidate for TPA. Extensive neuro workup is consistent with embolic CVA On Lovenox ,S/P SHELBIE , follow report and cardiology recommendations Objective - Constitutional Vitals: Vital Signs - 12hr 09/09/18 09/09/18 09/09/18 08:17 08:34 12:30 Temperature 99.0 F Pulse Rate 100 H 71 112 H Respiratory 18 18 18 Rate Blood Pressure 143/88 129/87 131/85 O2 Sat by Pulse 100 98 100 Oximetry 09/09/18 17:07 Temperature 98.4 F Pulse Rate 107 H Respiratory 18 Rate Blood Pressure 165/84 O2 Sat by Pulse 100 Oximetry General appearance: Present: no acute distress, well-nourished - EENT Eyes: PERRL, EOM intact ENT: hearing intact, clear oral mucosa Ears: bilateral: normal - Neck Neck: supple, normal ROM - Respiratory Respiratory effort: normal Respiratory: bilateral: CTA - Breasts Breasts: normal - Cardiovascular Rhythm: regular Heart Sounds: Present: S1 & S2. Absent: gallop, rub Extremities: pulses intact, No edema, normal color, Full ROM - Gastrointestinal General gastrointestinal: Present: soft, non-tender, non-distended, normal bowel sounds - Genitourinary Female genitourinary: normal - Integumentary Integumentary: clear, warm, dry - Musculoskeletal Musculoskeletal: 1, strength equal bilaterally - Neurologic Neurologic: moves all extremities - Psychiatric Psychiatric: memory intact, appropriate mood/affect, intact judgment & insight - Labs CBC & Chem 7: 09/02/18 17:23 09/02/18 17:23 Labs: Abnormal lab results 09/09/18 09/09/18 09/09/18 Range/Units 08:29 12:33 17:15 POC Glucose 133 H 227 H 58 L (70-105)
[2018-09-09] MEDS: D50W (25GM) Syringe IV PRN (21:32)
[2018-09-10] MEDS: PROCARDIA XL PO SCH ×2 (09:17→23:49)
[2018-09-10] MEDS: GLUCOTROL PO SCH ×2 (09:17→17:01)
[2018-09-10] MEDS: BABY ASPIRIN PO SCH (09:18)
[2018-09-10] MEDS: GLUCOPHAGE PO SCH ×2 (09:18→17:01)
[2018-09-10] MEDS: HumuLIN R SUB-Q SCH ×4 (09:18→23:39)
[2018-09-10] MEDS: LOVENOX SUB-Q SCH ×2 (09:18→23:47)
[2018-09-10] MEDS: CLARITIN PO SCH (09:18)
[2018-09-10] MEDS: PLAVIX PO SCH (09:18)
[2018-09-10] MEDS: COLACE PO SCH ×2 (09:19→23:49)
[2018-09-10] MEDS: APRESOLINE IV PRN ×2 (12:16→16:59)
--- NOTE | 2018-09-10 15:05 | Progress Note ---
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 Type II DM - uncontrolled Systemic Hypertension - uncontrolled Tachycardia Recommendations: Place on tele Patient is currently on asa, plavix and lovenox Start warfarin therapy when ok with neurology Control BS and BP Subjective Date of service: 09/10/18 Principal diagnosis: Acute CVA Interval history: No interval changes overnight Patient continues to be tachycardic on exam Patient is not on tele Objective Vital Signs Temp Pulse Resp BP Pulse Ox 09/10/18 12:16 175/91 09/10/18 12:07 98.5 F 128 H 14 192/109 99 09/10/18 05:02 98.4 F 114 H 18 154/85 99 09/10/18 03:15 98.5 F 117 H 18 164/96 97 09/09/18 22:18 98.5 F 112 H 18 175/94 99 09/09/18 21:32 108 H 172/104 09/09/18 20:29 98.4 F 108 H 18 172/104 97 09/09/18 17:07 98.4 F 107 H 18 165/84 100 - Physical Examination HEENT: Positive: PERRL Neck: Positive: neck supple Cardiac: Positive: Tachycardia Lungs: Positive: Normal Exam Neuro: Positive: Grossly Intact Abdomen: Positive: Soft Skin: Positive: Clear Extremities: Absent: edema - Imaging and Cardiology EKG: image reviewed (sinus tach 11 3 bpm)
--- NOTE | 2018-09-10 17:04 | Progress Note ---
Assessment and Plan 53-year-old -[place] female with history of uncontrolled diabetes type 2, hypertension, hyperlipidemia who presents to [facility] ED complaints of dizziness and hypertension. Stroke alert was initiated. CT Head revealed mild to moderate microvascular angiopathy without CT evidence of acute intracranial hemorrhage. She was elevated by Tele Neuro , and she was not a candidate for TPA. Extensive neuro workup is consistent with embolic CVA On Lovenox ,S/P SHELBIE today, follow report and cardiology recommendations --Embolic CVA; patient has no history of A. fib Echocardiogram no ASD or shunt, r/o paroxysmal A. fib Full dose anticoagulation with Lovenox, s/p SHELBIE today. f/u Report and cardiology recommendations --Dizziness ; present on admission not a candidate for TPA Neurology workup: CT head without contrast; [id number] microvascular angiopathy no evidence of acute intracranial hemorrhage MRI brain; multiple small less than 5 mL diameter foci of restricted diffusion identified involving both cerebellar hemispheres and right middle cerebral artery peduncle john and middle aspects of the right parietal lobe, embolic CVA MRA brain; no significant abnormality of intracranial vertebral arteriesto treat posterior cerebral arteries No abnormality in Intracranial internal carotid arteries Echocardiogram patent foramen ovale Moderate LVH EF 60-65% Carotid Doppler; no significant stenosis; --Hypertensive urgency; blood pressure is well-controlled continue current antihypertensives BP not controlled Meds adjusted Possible discharge tomorrow --Type 2 diabetes mellitus; Accu-Chek sliding scale coverage and ADA diet Insulin as needed, A1c 13.5 --Dyslipidemia; statin low-cholesterol diet --Severe Malnutrition: hypoalbuminemia; nutrition supplement/nutrition consult if needed --DVT prophylaxis: lovenox Closely monitor the patient and adjust management as needed Physical therapy occupational and rehabilitation Disposition ;Follow SHELBIE, and cardiology recommendations Possible subacute rehabilitation versus home with home health when medically stable Plan of care is reviewed with the patient and her nurse Subjective Date of service: 09/10/18 Principal diagnosis: Acute CVA Interval history: 53-year-old -[place] female with history of uncontrolled diabetes type 2, hypertension, hyperlipidemia who presents to [facility] ED complaints of dizziness and hypertension. Stroke alert was initiated. CT Head revealed mild to moderate microvascular angiopathy without CT evidence of acute intracranial hemorrhage. She was elvaluated by Tele Eder SMITH, and she was not a candidate for TPA. Extensive neuro workup is consistent with embolic CVA On Lovenox ,S/P SHELBIE , follow report and cardiology recommendations Objective - Constitutional Vitals: Vital Signs - 12hr 09/10/18 09/10/18 09/10/18 12:07 12:16 16:59 Temperature 98.5 F Pulse Rate 128 H Respiratory 14 Rate Blood Pressure 192/109 175/91 189/110 O2 Sat by Pulse 99 Oximetry General appearance: Present: no acute distress, well-nourished - EENT Eyes: PERRL, EOM intact ENT: hearing intact, clear oral mucosa Ears: bilateral: normal - Neck Neck: supple, normal ROM - Respiratory Respiratory effort: normal Respiratory: bilateral: CTA - Breasts Breasts: normal - Cardiovascular Rhythm: regular Heart Sounds: Present: S1 & S2. Absent: gallop, rub Extremities: pulses intact, No edema, normal color, Full ROM - Gastrointestinal General gastrointestinal: Present: soft, non-tender, non-distended, normal bowel sounds - Genitourinary Female genitourinary: normal - Integumentary Integumentary: clear, warm, dry - Musculoskeletal Musculoskeletal: 1, strength equal bilaterally - Neurologic Neurologic: moves all extremities - Psychiatric Psychiatric: memory intact, appropriate mood/affect, intact judgment & insight - Labs CBC & Chem 7: 09/02/18 17:23 09/02/18 17:23 Labs: Abnormal lab results 09/09/18 09/09/18 09/09/18 Range/Units 17:15 21:28 21:36 POC Glucose 58 L 46 L 57 L (70-105) 09/09/18 09/10/18 09/10/18 Range/Units 22:26 08:11 16:22 POC Glucose 202 H 188 H 50 L (70-105)
[2018-09-10] MEDS: COZAAR PO SCH (17:38)
[2018-09-10] MEDS ORDERED: CARDIZEM CD PO SCH (18:00)
[2018-09-10] MEDS: COREG PO SCH (23:49)
[2018-09-11 07:11] LABS: Basophils # (Auto) 0.1 K/mm3 (0.0-0.1); Eosinophils % (Auto) 0.2 % (0.0-4.3); Hematocrit 32.3 % (30.3-42.9); Hemoglobin 10.6 gm/dl (10.1-14.3); Lymphocytes # (Auto) 2.6 K/mm3 (1.2-5.4); Lymphocytes % (Auto) 29.1 % (13.4-35.0); Mean Corpuscular HGB Conc 33 % (30-34); Mean Corpuscular Volume 88 fl (79-97); Monocytes # (Auto) 0.8 K/mm3 (0.0-0.8); Monocytes % (Auto) 8.9 % (0.0-7.3); Platelet Count 296 K/mm3 (140-440); Red Blood Count 3.69 M/mm3 (3.65-5.03)
[2018-09-11 07:13] LABS: Albumin 3.2 g/dL (3.9-5); Calcium 9.4 mg/dL (8.4-10.2)
[2018-09-11] MEDS: D50W (25GM) Syringe IV PRN ×2 (07:23→15:02)
[2018-09-11] MEDS: HumuLIN R SUB-Q SCH ×2 (07:49→15:57)
--- NOTE | 2018-09-11 08:28 | Discharge Summary ---
Providers - Providers Date of Admission: 09/02/18 19:53 Date of discharge: 09/11/18 Attending physician: ARCHIE DNENY 09/02/18 Consult to Physician [CONS] Routine Comment: Consulting Provider: APURVA RAMOS Physician Instructions: Reason For Exam: ??stoke, HTN urgency 09/02/18 19:53 Consult to Dietitian/Nutrition [CONS] Routine Physician Instructions: Reason For Exam: Reason for Consult: Nutrition Recommendations Reason for Consult: Poor oral intake Occupational Therapy Evaluate and Treat [CONS] Routine Comment: Reason For Exam: Neuro deficits Physical Therapy Evaluation and Treat [CONS] Routine Comment: Reason For Exam: Neuro deficits 09/04/18 11:04 Consult to Physician [CONS] Routine Comment: Consulting Provider: DAYANNA REDMOND Physician Instructions: Reason For Exam: Embolic CVA/ SHELBIE [facility] Condition: Stable Pertinent studies: Neurology workup: CT head without contrast; [id number] microvascular angiopathy no evidence of acute intracranial hemorrhage MRI brain; multiple small less than 5 mL diameter foci of restricted diffusion identified involving both cerebellar hemispheres and right middle cerebral artery peduncle john and middle aspects of the right parietal lobe, embolic CVA MRA brain; no significant abnormality of intracranial vertebral arteriesto treat posterior cerebral arteries No abnormality in Intracranial internal carotid arteries Echocardiogram patent foramen ovale Moderate LVH EF 60-65% Carotid Doppler; no significant stenosis; Hospital course: Embolic CVA SHELBIE reviewed - no evidence of mass on the aortic valve, evidence of extensive atherosclerotic disease of the thoracic aorta Type II DM - uncontrolled Systemic Hypertension - uncontrolled Tachycardia Recommendations: Place on tele Patient is currently on asa and plavix No Afib or any ectopics Tele strips reviewed Will d/c Plavix and discharge on Eliquis Will get Holter as outpatient Echocardiogram no ASD or shunt, r/o paroxysmal A. fib--EF 60 to 65 Full dose anticoagulation with Lovenox, s/p SHELBIE today. f/u Report and cardiology recommendations --Hypertensive urgency; blood pressure is well-controlled continue current antihypertensives BP not controlled Meds adjusted--controlled today Possible discharge tomorrow --Type 2 diabetes mellitus; Accu-Chek sliding scale coverage and ADA diet Insulin as needed, A1c 13.5 Will discharge on Metformin and Glimepride 2 mg po qd --Dyslipidemia; statin low-cholesterol diet --Severe Malnutrition: hypoalbuminemia; nutrition supplement/nutrition consult if needed Discharge home at 4 pm F/u with cardiology Plan of care is reviewed with the patient and her nurse Disposition: DC-01 TO HOME OR SELFCARE Core Measure Documentation - Palliative Care Palliative Care/ Comfort Measures: Not Applicable - Core Measures Any of the following diagnoses?: stroke - Stroke Discharge Requirements Statin for LDL = or >70 mg/dl on DC: Yes Anticoag for atrial fib/atrial flutter: Not Applicable Antithrombotic for ischemic stroke: Yes Exam - Constitutional Vitals: Temp Pulse Resp BP Pulse Ox 98.3 F 85 20 138/90 98 09/11/18 04:49 09/11/18 04:49 09/11/18 04:49 09/11/18 04:49 09/11/18 04:49 General appearance: Present: no acute distress, well-nourished - EENT Eyes: Present: PERRL ENT: hearing intact, clear oral mucosa - Neck Neck: Present: supple, normal ROM - Respiratory Respiratory effort: normal Respiratory: bilateral: CTA - Cardiovascular Heart Sounds: Present: S1 & S2. Absent: rub, click - Extremities Extremities: no ischemia, pulses symmetrical, No edema Peripheral Pulses: within normal limits - Abdominal General gastrointestinal: Present: soft, non-tender, non-distended, normal bowel sounds Female genitourinary: Present: normal - Rectal Rectal Exam: deferred - Integumentary Integumentary: Present: clear, warm, dry - Musculoskeletal Musculoskeletal: strength equal bilaterally, other (Power is 5/5) - Psychiatric Psychiatric: appropriate mood/affect, intact judgment & insight - Neurologic Neurologic: CNII-XII intact, moves all extremities - Allied Health Allied health notes reviewed: nursing, case management Plan Activity: no restrictions Diet: low cholesterol, diabetic Follow up with: MIRA DURAN MD [Primary Care Provider] - 7 Days ALICIA JULIAN MD [Staff Physician] - 7 Days
[2018-09-11] MEDS: GLUCOPHAGE PO SCH (08:43)
--- NOTE | 2018-09-11 09:50 | Progress Note ---
Assessment and Plan Embolic CVA SHELBIE reviewed - no evidence of mass on the aortic valve, evidence of atherosclerotic disease of the thoracic aora Type II DM - uncontrolled Systemic Hypertension - uncontrolled Tachycardia Recommendations: So far there is no cardiac reason for patient to be on anticoagulation - no afib on tele and SHELBIE is negative for cardioembolic source Advised patient to follow-up with us in outpatient for a loop recorder Will defer decision to continue whether or not to continue anticoagulation to neurology Subjective Date of service: 09/11/18 Principal diagnosis: Acute CVA Interval history: Patient is doing well She has no CV complaints Objective Vital Signs Temp Pulse Resp BP Pulse Ox 09/11/18 04:49 98.3 F 85 20 138/90 98 09/10/18 21:23 98.9 F 111 H 20 184/99 100 09/10/18 17:38 189/110 09/10/18 16:59 189/110 09/10/18 16:41 98.6 F 116 H 14 184/110 99 09/10/18 12:16 175/91 09/10/18 12:07 98.5 F 128 H 14 192/109 99 - Physical Examination HEENT: Positive: PERRL Neck: Positive: neck supple Cardiac: Positive: Reg Rate and Rhythm Lungs: Positive: Normal Exam Neuro: Positive: Grossly Intact Abdomen: Positive: Soft Skin: Positive: Clear Extremities: Absent: edema - Labs and Meds Cardiac Enzymes 09/11/18 Range/Units 05:31 AST 21 (5-40) units/L CBC 09/11/18 Range/Units 05:31 WBC 9.0 (4.5-11.0) K/mm3 RBC 3.69 (3.65-5.03) M/mm3 Hgb 10.6 (10.1-14.3) gm/dl Hct 32.3 (30.3-42.9) % Plt Count 296 (140-440) K/mm3 Lymph # 2.6 (1.2-5.4) K/mm3 [place] # 0.8 (0.0-0.8) K/mm3 Eos # 0.0 (0.0-0.4) K/mm3 Baso # 0.1 (0.0-0.1) K/mm3 Comprehensive Metabolic Panel 09/11/18 Range/Units 05:31 Sodium 137 (137-145) mmol/L Potassium 4.6 (3.6-5.0) mmol/L Chloride 99.2 (98-107) mmol/L Carbon Dioxide 26 (22-30) mmol/L BUN 13 (7-17) mg/dL Creatinine 1.6 H (0.7-1.2) mg/dL Glucose 33 L* (65-100) mg/dL Calcium 9.4 (8.4-10.2) mg/dL AST 21 (5-40) units/L ALT 14 (7-56) units/L Alkaline Phosphatase 174 H (35-129) units/L Total Protein 7.9 (6.3-8.2) g/dL Albumin 3.2 L (3.9-5) g/dL - Imaging and Cardiology EKG: image reviewed (sinus tach 11 3 bpm)
[2018-09-11] MEDS: PLAVIX PO SCH (10:29)
[2018-09-11] MEDS: CLARITIN PO SCH (10:29)
[2018-09-11] MEDS: PROCARDIA XL PO SCH (10:29)
[2018-09-11] MEDS: COLACE PO SCH (10:29)
[2018-09-11] MEDS: COREG PO SCH (10:29)
[2018-09-11] MEDS: BABY ASPIRIN PO SCH (10:30)
[2018-09-11] MEDS: COZAAR PO SCH (10:33)
[2018-09-11] MEDS: LOVENOX SUB-Q SCH (10:34)
[2018-09-11 11:33] VITALS: BP 161/93
[2018-09-11] MEDS ORDERED: D50W (25GM) Syringe IV PRN (14:47)
== END 2018-09-11 16:00 | disposition home or self-care (01) | DRG 64 ==
LOC: ED 16:43 → 4A 19:53 → 3A 09-09 23:36
PROVIDERS: ADMIT Internal Medicine; ATTEND Internal Medicine
DX: I63.9 Cerebral infarction, unspecified (principal); E43 Unspecified severe protein-calorie malnutrition; D72.829 Elevated white blood cell count, unspecified; R09.89 Other specified symptoms and signs involving the circulatory and respiratory systems; I10 Essential (primary) hypertension; E11.9 Type 2 diabetes mellitus without complications; E78.5 Hyperlipidemia, unspecified; Z79.82 Long term (current) use of aspirin; E78.00 Pure hypercholesterolemia, unspecified; Z79.899 Other long term (current) drug therapy; Z79.84 Long term (current) use of oral hypoglycemic drugs; Z68.23 Body mass index [BMI] 23.0-23.9, adult; R00.0 Tachycardia, unspecified; I16.0 Hypertensive urgency
CPT/HCPCS: 36415; 70450; 70544; 71045; 72100; 72170; 80053; 80061; 80076; 81001; 82550; 82553; 82962; 84484; 85025; 85610; 85670; 85730; 87040; 93005; 93010; 93306; 93312; 93320; 93325; 93880; 96374; G0378; A9270-GY; J0360; J1650; J1815; J2250; J2543; J3010